=== PATIENT | male | born 1995 | race Caucasian/White ===

== ENCOUNTER 2016-09-12 14:01 | Emergency (ER) | payer MEDICARE, MEDICAID ==
[~2016-09-12] VITALS: Ht 182.9 cm; Wt 77.1 kg
[2016-09-12 14:01] VITALS: BP 135/72
[~2016-09-12 14:01] MED LIST: ABIL2TAB PO; ABIL5TAB PO; CETI10TA PO; COLACE PO; WELL100T PO; WELLTAB4 PO; [UNRECOGNIZED DRUG - REMARK]
[2016-09-12] MEDS ORDERED: MIRA3350 PO (15:18)
== END 2016-09-12 16:07 | disposition home or self-care (01) ==
LOC: M ED 15:57
DX: L29.0 Pruritus ani (principal); Z91.018 Allergy to other foods; Z88.1 Allergy status to other antibiotic agents

== ENCOUNTER → 2017-11-27 | Outpatient (CLI) | payer MEDICARE, MEDICAID ==
[2017-11-27 19:15] LABS: BASO % 0.3 % (0.0-1.0); HEMOGLOBIN 15.6 g/dl (13.5-17.5); IMMATURE GRANULOCYTE % 0.4 % (0-3.0); LYMPH # 0.8 10^3/uL (1.5-6.5); MEAN CORPUSCULAR HEMOGLOBIN 30.3 pg (27.0-33.0); MEAN CORPUSCULAR HGB CONC 33.9 g/dl (32.0-36.5); MEAN CORPUSCULAR VOLUME 89.3 fl (80.0-96.0); MONO # 0.5 10^3/uL (0.0-0.8); MONO % 4.9 % (0.0-5.0); NEUTROPHILS # 8.3 10^3/uL (1.8-7.7); NEUTROPHILS % 86.4 % (36.0-66.0); PLATELET COUNT, AUTOMATED 184 10^3/uL (150-450); RED BLOOD COUNT 5.15 10^6/uL (4.30-6.10); RED CELL DISTRIBUTION WIDTH 12.1 % (11.5-14.5); WHITE BLOOD COUNT 9.6 10^3/uL (4.0-10.0)
[2017-11-27 19:25] LABS: ALBUMIN 3.8 GM/DL (3.2-5.2); ALBUMIN/GLOBULIN RATIO 1.27 (1.00-1.93); ALKALINE PHOSPHATASE 52 U/L (45-117); ALT/SGPT 29 U/L (12-78); ANION GAP 9 MEQ/L (8-16); AST/SGOT 17 U/L (7-37); BILIRUBIN,TOTAL 1.2 MG/DL (0.2-1.0); BLOOD UREA NITROGEN 16 MG/DL (7-18); CALCIUM LEVEL 8.8 MG/DL (8.5-10.1); CARBON DIOXIDE LEVEL 26 MEQ/L (21-32); CHLORIDE LEVEL 104 MEQ/L (98-107); CREATININE FOR GFR 1.46 MG/DL (0.70-1.30); GLOMERULAR FILTRATION RATE > 60.0 (>60); GLUCOSE, FASTING 87 MG/DL (70-100); POTASSIUM SERUM 3.9 MEQ/L (3.5-5.1); SODIUM LEVEL 139 MEQ/L (136-145); TOTAL PROTEIN 6.8 GM/DL (6.4-8.2)
== END ==
LOC: M WUC 16:38
DX: A09 Infectious gastroenteritis and colitis, unspecified (principal)
CPT/HCPCS: 80053

== ENCOUNTER → 2019-02-05 | Outpatient (CLI) | payer MEDICARE, MEDICAID ==
[~2019-02-05] MED LIST changes: +MIRA3350 PO
[2019-02-05 12:35] LABS: HEMOGLOBIN A1c 5.3 %
[2019-02-05 12:51] LABS: ALBUMIN 3.9 GM/DL (3.2-5.2); ALT/SGPT 28 U/L (12-78); BILIRUBIN,TOTAL 0.6 MG/DL (0.2-1.0); BLOOD UREA NITROGEN 18 MG/DL (7-18); CARBON DIOXIDE LEVEL 31 MEQ/L (21-32); CHLORIDE LEVEL 104 MEQ/L (98-107); CHOLESTEROL LEVEL 92 MG/DL (<200); CHOLESTEROL RISK RATIO 1.803 (<5); CREATININE FOR GFR 1.14 MG/DL (0.70-1.30); GLOMERULAR FILTRATION RATE > 60.0 (>60); GLUCOSE, FASTING 73 MG/DL (70-100); HDL CHOLESTEROL 51 MG/DL (>40); LDL CHOLESTEROL 26 MG/DL (<100); NON-HDL-C 41 MG/DL; POTASSIUM SERUM 3.7 MEQ/L (3.5-5.1); SODIUM LEVEL 139 MEQ/L (136-145); TOTAL PROTEIN 7.1 GM/DL (6.4-8.2); TRIGLYCERIDES LEVEL 76 MG/DL (<150)
[2019-02-07 12:32] LABS: TESTOSTERONE 546 NG/DL (241-827)
[2019-02-07 12:33] LABS: HEPATITIS B SURFACE ANTIBODY NEGATIVE (POSITIVE)
[2019-02-07 12:43] LABS: HEPATITIS B SURFACE ANTIGEN NEGATIVE (NEGATIVE)
[2019-02-07 13:08] LABS: ESTRADIOL 24.6 PG/ML (<39.8)
[2019-02-07 13:12] LABS: HIV 1&2 SCREEN CENTAUR NEGATIVE (NEGATIVE)
== END ==
LOC: M LAB 11:28
PROVIDERS: ATTEND Nurse Practitioner Family
DX: F64.0 Transsexualism (principal); E07.9 Disorder of thyroid, unspecified; E78.00 Pure hypercholesterolemia, unspecified

== ENCOUNTER → 2019-04-28 | Outpatient (REF) | payer MEDICARE, MEDICAID ==
[2019-04-28 20:25] LABS: INFLUENZA A AMPLIFICATION NEGATIVE (NEGATIVE); INFLUENZA B AMPLIFICATION NEGATIVE (NEGATIVE)
== END ==
LOC: M LAB REF 18:53
PROVIDERS: ATTEND Physician Assistant
DX: R50.9 Fever, unspecified (principal)

== ENCOUNTER → 2019-09-23 | Outpatient (REF) | payer MEDICARE, MEDICAID ==
[2019-09-23 18:14] LABS: PROGESTERONE 0.21 NG/ML (0.28-1.22)
== END ==
LOC: M LAB REF 16:12
PROVIDERS: ATTEND Family Medicine Addiction Medicine
DX: F64.0 Transsexualism (principal)

== ENCOUNTER → 2020-02-03 | Outpatient (REF) | payer MEDICARE, MEDICAID ==
[2020-02-03 12:22] LABS: ALT/SGPT 26 U/L (12-78); BILIRUBIN,TOTAL 0.6 MG/DL (0.2-1.0); BLOOD UREA NITROGEN 12 MG/DL (7-18); CALCIUM LEVEL 9.5 MG/DL (8.5-10.1); CARBON DIOXIDE LEVEL 29 MEQ/L (21-32); CHLORIDE LEVEL 105 MEQ/L (98-107); CREATININE FOR GFR 0.98 MG/DL (0.70-1.30); GLOMERULAR FILTRATION RATE > 60.0 (>60); GLUCOSE, FASTING 70 MG/DL (70-100); SODIUM LEVEL 138 MEQ/L (136-145)
[2020-02-03 12:23] LABS: ALBUMIN 4.2 GM/DL (3.2-5.2); TOTAL PROTEIN 7.2 GM/DL (6.4-8.2)
[2020-02-03 12:28] LABS: ESTRADIOL 59.1 PG/ML (<39.8); TESTOSTERONE 425 NG/DL (241-827)
== END ==
LOC: M LAB REF 11:29
PROVIDERS: ATTEND Family Medicine Addiction Medicine
DX: F64.0 Transsexualism (principal)

== ENCOUNTER → 2020-04-07 | Outpatient (REF) | payer MEDICARE, MEDICAID | LOC: M LAB 22:06 | PROVIDERS: ATTEND Physician Assistant | DX: Z11.59 Encounter for screening for other viral diseases (principal) ==

== ENCOUNTER → 2020-04-27 | Outpatient (REF) | payer MEDICARE, MEDICAID ==
[2020-04-27 18:56] LABS: ALBUMIN 4.1 GM/DL (3.2-5.2); ALT/SGPT 36 U/L (12-78); BILIRUBIN,TOTAL 0.7 MG/DL (0.2-1.0); BLOOD UREA NITROGEN 13 MG/DL (7-18); CALCIUM LEVEL 9.5 MG/DL (8.5-10.1); CARBON DIOXIDE LEVEL 25 MEQ/L (21-32); CHLORIDE LEVEL 104 MEQ/L (98-107); CREATININE FOR GFR 1.06 MG/DL (0.70-1.30); GLOMERULAR FILTRATION RATE > 60.0 (>60); GLUCOSE, FASTING 76 MG/DL (70-100); POTASSIUM SERUM 3.9 MEQ/L (3.5-5.1); SODIUM LEVEL 140 MEQ/L (136-145); TOTAL PROTEIN 7.1 GM/DL (6.4-8.2)
[2020-04-27 19:03] LABS: TESTOSTERONE 397 NG/DL (241-827)
== END ==
LOC: M LAB REF 16:48
PROVIDERS: ATTEND Family Medicine Addiction Medicine
DX: F64.0 Transsexualism (principal)

== ENCOUNTER → 2020-06-12 | Outpatient (REF) | payer MEDICARE, MEDICAID ==
[2020-06-12 13:19] LABS: ALBUMIN 4.1 GM/DL (3.2-5.2); ALT/SGPT 36 U/L (12-78); BILIRUBIN,TOTAL 0.4 MG/DL (0.2-1.0); BLOOD UREA NITROGEN 17 MG/DL (7-18); CALCIUM LEVEL 9.7 MG/DL (8.5-10.1); CARBON DIOXIDE LEVEL 26 MEQ/L (21-32); CHLORIDE LEVEL 104 MEQ/L (98-107); CHOLESTEROL LEVEL 136 MG/DL (<200); CREATININE FOR GFR 1.01 MG/DL (0.70-1.30); ESTRADIOL 30.2 PG/ML (<39.8); GLOMERULAR FILTRATION RATE > 60.0 (>60); GLUCOSE, FASTING 84 MG/DL (70-100); HDL CHOLESTEROL 44 MG/DL (>40); LDL CHOLESTEROL 59 MG/DL (<100); NON-HDL-C 92 MG/DL; POTASSIUM SERUM 4.4 MEQ/L (3.5-5.1); SODIUM LEVEL 137 MEQ/L (136-145); TESTOSTERONE 365 NG/DL (241-827); TOTAL 25(OH) VITAMIN D 8.6 NG/ML (30.0-100.0); TOTAL PROTEIN 7.5 GM/DL (6.4-8.2); TRIGLYCERIDES LEVEL 166 MG/DL (<150)
== END ==
LOC: M LAB REF 12:04
PROVIDERS: ATTEND Family Medicine Addiction Medicine
DX: F64.0 Transsexualism (principal); E55.9 Vitamin D deficiency, unspecified; Z13.220 Encounter for screening for lipoid disorders

== ENCOUNTER → 2021-01-16 | Outpatient (CLI) | payer MEDICARE, MEDICAID ==
[~2021-01-16] MED LIST changes: +CETI5SOL3 PO; +ESTR1TAB PO; +SPIR1TAB34 PO; +VENL37TA PO
== END ==
LOC: M LABSMTC 10:21
PROVIDERS: ATTEND Anesthesiology
DX: Z01.818 Encounter for other preprocedural examination (principal); Z11.52 Encounter for screening for COVID-19

== ENCOUNTER 2021-01-21 11:01 | Day surgery (SDC) | payer MEDICARE, MEDICAID ==
[~2021-01-21] VITALS: Ht 182.9 cm; Wt 96.6 kg
--- OUTSIDE RECORDS SUMMARY | 2021-01-21 11:06 | CCD ---
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 Role Phone Segun Martínez Unavailable Unavailable Allergies Code Code System Name Reaction Severity Status Onset [id number] RxNorm Cantaloupe Active NKDA Notes: CANTELOPE | ENVIRONMENTAL Medications Name Status Start Date Stop Date cetirizine 10 mg tablet TAKE ONE TABLET BY MOUTH EVERY DAY Active Not available clindamycin 1.2 % (1 % base)-benzoyl peroxide 5 % topical gel Ac tive Not available estradiol 2 mg tablet TAKE TWO TABLETS BY MOUTH EVERY DAY Active Not available paroxetine 10 mg tablet TAKE ONE TABLET BY MOUTH EVERY DAY Completed 06/2020 paroxetine 20 mg tablet TAKE ONE TABLET BY MOUTH ONCE A DAY Completed 06/2020 paroxetine 30 mg tablet TAKE ONE TABLET BY MOUTH EVERY DAY Completed 06/06 spironolactone 100 mg tablet TAKE TWO TABLETS BY MOUTH EVERY DAY Active Not available spironolactone 50 mg tablet TAKE ONE TABLET BY MOUTH ONCE DAILY Completed 07/2019 venlafaxine ER 37.5 mg capsule,extended release 24 hr TAKE ONE CAPSULE BY MOUTH TWICE A DAY Active N ot available Problems Name Status Onset Date Source Asperger's Disorder Active 07/20/2012 History Conduct Disorder Active 07/23/2012 History Vitamin D Deficiency Active 11/29/2012 History Acne Active 11/29/2012 History Hyperlipidemia Screening Active 11/29/2012 History Constipation Active 01/24/[address] Concept Active 01/24/2013 History Autistic Disorder Active 01/23/2014 History Dental Caries on Smooth Surface Penetrating into Pulp Active 11/14/2014 History 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 05/18/2015 History Hyperlipidemia Active 09/11/2015 History Pruritus Ani Active 09/05/2016 History Impacted Cerumen in Right Ear Active 09/05/2016 Hi story Finding of Head and Neck Region Active 04/23/2017 History Perennial Allergic Rhinitis Active 10/21/2017 Hist ory Influenza Vaccine Needed Active 07/20/2018 History Tooth Finding Active 12/03/2018 History 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 Active History Hematochezia Active 03/09/2020 Hirsutism Active 06/01/2020 Body Mass Index 25-29 - Overweight Active 07/03/2020 Asthma Active History SNOMED CT Concept Active History Finding of Esophagus Active History Procedures Notes: Bilateral Inguinal hernia repair Results Lab Results Date Name Specimen Result Interpretation Description Value Range Status Address 06/12/2020 CMP, Serum or Plasma Normal Glucose, Fastin g 84 mg/dL 70-100 mg/dL [facility]: 83 0 [facility] Normal Blood Urea Nitrogen 17 mg/dL 7-18 mg /dL [facility]: [address]30 [facility] Normal Creatinine for GFR 1.01 mg/dL 0.70-1 .30 mg/dL [facility]: [address] [facility] Normal Glomerular Filtration Rate > 60.0 >6 0 [facility]: [address] [facility] Normal Sodium Level 137 mEq/L 136-145 mEq/L [facility]: [address] [facility] Normal Potassium Serum 4.4 mEq/L 3.5-5.1 mE q/L [facility]: [address] [facility] Normal Chloride Level 104 mEq/L 98-107 mEq/ L [facility]: [address] [facility] Normal Carbon Dioxide Level 26 mEq/L 21-32 mEq/L [facility]: [address] [facility] Low Anion Gap 7 mEq/L 8-16 mEq/L [facility]: [address] [facility] Normal Calcium Level 9.7 mg/dL 8.5-10.1 mg/ dL [facility]: [address] [facility] Normal AST/SGOT 22 U/L 7-37 U/L [facility]: 8[address] [facility] Normal ALT/SGPT 36 U/L 12-78 U/L [facility]: 8[address] [facility] Normal Alkaline Phosphatase 82 U/L 45-117 U /L [facility]: [address] [facility] Normal Bilirubin,total 0.4 mg/dL 0.2-1.0 mg /dL [facility]: [address] [facility] Normal Total Protein 7.5 gm/dL 6.4-8.2 gm/d L [facility]: [address] [facility] Normal Albumin 4.1 gm/dL 3.2-5.2 gm/dL [facility]: [address] [facility] Normal Albumin/globulin Ratio 1.2 [facility]: [address] [facility] 06/12/2020 Lipid Panel, Blood High Triglycerides Lev el 166 mg/dL <150 mg/dL [facility]: 83 0 [facility] Normal Cholesterol Level 136 mg/dL <200 mg/ dL [facility]: [address] [facility] Normal HDL Cholesterol 44 mg/dL >40 mg/dL F inal [facility]: [address] [facility] Normal LDL Cholesterol 59 mg/dL <100 mg/dL [facility]: [address] [facility] Normal Non-hdl-c 92 mg/dL [facility]: [address] [facility] Normal Cholesterol Risk Ratio 3.090 <5 [facility]: [address] [facility] 06/12/2020 Testosterone, Total, Serum Normal Testoster one 365 NG/dL 241- 827 NG/dL [facility]: 83 0 [facility] 06/12/2020 Estradiol, Serum Normal Estradiol 30.2 pg/mL < 39.8 pg/mL [facility]: [address] [facility] 06/12/2020 TSH, Serum or Plasma Normal Thyroid Stimulating Hormone 2.490 uIU/mL 0.358-3.740 uIU/mL [facility] nter: [address] [facility] 06/12/2020 Vitamin D, 25-Hydroxy, Total, Serum Low Total 25(Oh) Vitamin D 8.6 NG/mL 30.0-100.0 NG/mL [facility] nter: [address] [place] [address] 04/27/2020 CMP, Serum or Plasma Blood venous Normal Glu cose, Fasting 76 mg/dL 70-100 mg/dL [facility] nter: [address] [place] [address] Blood venous Normal Blood Urea Nitrogen 13 mg/dL 7-18 mg/dL [facility]: [address] [place] [address] Blood venous Normal Creatinine for GFR 1.06 mg/dL 0.70-1.30 mg/dL [facility]: [address] [place] [address] Blood venous Normal Glomerular Filtration Rate > 60.0 >60 [facility]: [address] [place] [address] Blood venous Normal Sodium Level 140 mEq/L 136-14 5 mEq/L [facility]: [address] [place] [address] Blood venous Normal Potassium Serum 3.9 mEq/L 3.5 -5.1 mEq/L [facility]: [address] [place] [address] Blood venous Normal Chloride Level 104 mEq/L 98-1 07 mEq/L [facility]: [address] [place] [address] Blood venous Normal Carbon Dioxide Level 25 mEq/L 21-32 mEq/L [facility]: [address] [place] [address] Blood venous Normal Anion Gap 11 mEq/L 8-16 mEq/L [facility]: [address] [place] [address] Blood venous Normal Calcium Level 9.5 mg/dL 8.5-1 0.1 mg/dL [facility]: [address] [place] [address] Blood venous Normal AST/SGOT 18 U/L 7-37 U/L [facility]: [address] [place] [address] Blood venous Normal ALT/SGPT 36 U/L 12-78 U/L [facility]: [address] [place] [address] Blood venous Normal Alkaline Phosphatase 70 U/L 4 5-117 U/L [facility]: [address] [place] [address] Blood venous Normal Bilirubin,total 0.7 mg/dL 0.2 -1.0 mg/dL [facility]: [address] [place] [address] Blood venous Normal Total Protein 7.1 gm/dL 6.4-8 .2 gm/dL [facility]: [address] [facility] Blood venous Normal Albumin 4.1 gm/dL 3.2-5.2 gm/ dL [facility]: [address] [facility] Blood venous Normal Albumin/globulin Ratio 1.4 [facility]: [address] [facility] 04/27/2020 Testosterone, Total, Serum Blood venous Normal Testosterone 397 NG/dL 241-827 NG/dL [facility] nter: 0 [facility] 04/27/2020 Estradiol, Serum Blood venous Normal Estradiol 33 .0 pg/mL <39.8 pg/mL [facility]: 83 0 [facility] 02/03/2020 CMP, Serum or Plasma Normal Glucose, Fastin g 70 mg/dL 70-100 mg/dL [facility]: 83 0 [facility] Normal Blood Urea Nitrogen 12 mg/dL 7-18 mg /dL [facility]: 0 [facility] Normal Creatinine for GFR 0.98 mg/dL 0.70-1 .30 mg/dL [facility]: 0 [facility] Normal Glomerular Filtration Rate > 60.0 >6 0 [facility]: [address] [facility] Normal Sodium Level 138 mEq/L 136-145 mEq/L [facility]: 8[address] [facility] Normal Potassium Serum 4.0 mEq/L 3.5-5.1 mE q/L [facility]: [address] [facility] Normal Chloride Level 105 mEq/L 98-107 mEq/ L [facility]: 0 [facility] Normal Carbon Dioxide Level 29 mEq/L 21-32 mEq/L [facility]: 0 [facility] Low Anion Gap 4 mEq/L 8-16 mEq/L [facility]: [address] [facility] Normal Calcium Level 9.5 mg/dL 8.5-10.1 mg/ dL [facility]: 8[address] [facility] Normal AST/SGOT 16 U/L 7-37 U/L [facility]: 830 [facility] Normal ALT/SGPT 26 U/L 12-78 U/L [facility]: [address] [facility] Normal Alkaline Phosphatase 71 U/L 45-117 U /L [facility]: [address] [facility] Normal Bilirubin,total 0.6 mg/dL 0.2-1.0 mg /dL [facility]: [address] [facility] Normal Total Protein 7.2 gm/dL 6.4-8.2 gm/d L [facility]: [address] [facility] Normal Albumin 4.2 gm/dL 3.2-5.2 gm/dL [facility]: [address] [facility] Normal Albumin/globulin Ratio 1.4 [facility]: [address] [facility] 02/03/2020 Testosterone, Total, Serum Normal Testoster one 425 NG/dL 241- 827 NG/dL [facility]: 83 0 [facility] 02/03/2020 Estradiol, Serum High Estradiol 59.1 pg/mL < 39.8 pg/mL [facility]: [address] [facility] Past Encounters 12/12/2020 Hirsutism; 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 Segun Martínez MD: [address] [place] [phone], Ph. 09/07/2020 Hirsutism Segun Martínez MD: [address] [place] [phone], Ph. 08/06/2020 Constipation Segun Martínez MD: [address] [place] [phone], Ph. 07/03/2020 Body Mass Index 25-29 - Overweight; Hematochezia; Vitamin D Deficiency Segun Martínez MD: [address] [place] [phone], Ph. 06/12/2020 Segun Martínez MD: [address] [place] [phone], Ph. 06/01/2020 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; Hirsutism Segun Martínez MD: [address] [place] [phone], Ph. 04/27/2020 Segun Martínez MD: [address] [place] [phone], Ph. 04/23/2020 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; Body Mass Index 25-29 - Overweight; Acne Segun Martínez MD: [address] [place] [phone], Ph. 03/09/2020 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; Administration of Influenza Vaccine; Hematochezia Segun Martínez MD: [address] [place] [phone], Ph. 02/02/2020 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; Gastroesophageal Reflux Disease without Esophagitis; Superficial Acne Vulgaris Segun Martínez MD: [address] [place] [phone], Ph. Social History Tobacco Smoking Status Never Smoker Vaccine List Vaccine Type Influenza, injectable, MDCK, preservativ e free, quadrivalent 07/20/20180.5 mL influenza, injectable, quadrivalent, pre servative free 03/09/20200.5 mL Plan of Care Reminders Provider Appointments None recorded. Lab None recorded. Referral None recorded. Procedures None recorded. Surgeries None recorded. Imaging None recorded. Vitals 12/12/2020 03:40PM ESTABLISHED [id number] Height Weight BMI Blood Pressure 72 in 215 lbs 8 oz 29.2 kg/m2 104/69 mm[Hg] 09/07/2020 03:20PM SAME DAY 20 Height Weight BMI Blood Pressure 72 in 218 lbs 4 oz 29.6 kg/m2 128/71 mm[Hg] 08/06/2020 03:40PM PROVIDER REQUESTED Height Weight BMI Blood Pressure 72 in 214 lbs 29 kg/m2 146/80 mm[Hg] 07/03/2020 11:00AM ESTABLISHED [id number] Height Weight BMI Blood Pressure 72 in 210 lbs 6.4 oz 28.5 kg/m2 (1) 192/96 m m[Hg] (2) 112/74 mm[Hg] 06/01/2020 02:00PM SAME DAY 20 Height Weight BMI Blood Pressure 72 in 213 lbs 4 oz 28.9 kg/m2 110/78 mm[Hg] 04/23/2020 03:20PM SAME DAY 20 Height Weight BMI Blood Pressure 72 in 207 lbs 6 oz 28.1 kg/m2 125/86 mm[Hg] 03/09/2020 03:00PM ESTABLISHED [id number] Height Weight BMI Blood Pressure 72 in 209 lbs 6.4 oz 28.4 kg/m2 128/84 mm[Hg ] 02/02/2020 01:00PM ESTABLISHED [id number] Height Weight BMI Blood Pressure 72 in 202 lbs 6 oz 27.4 kg/m2 133/84 mm[Hg] 10/24/2019 Height Weight BMI Blood Pressure 72 in 203 lbs 27.63 kg/m2 116/82 mm[Hg] 09/23/2019 Height Weight BMI Blood Pressure 72 in 202 lbs 2.08 oz 27.51 kg/m2 134/81 mm[H g] 08/22/2019 Height Weight BMI Blood Pressure 72 in 198 lbs 26.95 kg/m2 117/68 mm[Hg] 04/27/2019 Height Weight BMI Blood Pressure 72 in 192 lbs 8 oz 26.20 kg/m2 137/84 mm[Hg] 04/20/2019 Height Weight BMI Blood Pressure 72 in 187 lbs 11.2 oz 25.55 kg/m2 120/82 mm[H g] 03/16/2019 Height Weight BMI Blood Pressure 72 in 185 lbs 25.18 kg/m2 110/64 mm[Hg] 02/24/2019 Height Weight BMI Blood Pressure 72 in 179 lbs 6.08 oz 24.42 kg/m2 125/84 mm[H g] 02/04/2019 Height Weight BMI Blood Pressure 72 in 174 lbs 4 oz 23.72 kg/m2 112/78 mm[Hg] 12/03/2018 Height Weight BMI Blood Pressure 72 in 177 lbs 2.08 oz 24.11 kg/m2 120/80 mm[H g] 07/20/2018 Height Weight BMI Blood Pressure 61.32 in 175 lbs 2.08 oz 32.86 kg/m2 119/75 mm[H g] 04/20/2018 Height Weight BMI Blood Pressure 61.32 in 191 lbs 9.6 oz 35.96 kg/m2 120/83 mm[Hg ]"
--- OUTSIDE RECORDS SUMMARY | 2021-01-21 11:06 | CCD ---
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 Role Phone Segun Martínez Unavailable Unavailable Allergies Code Code System Name Reaction Severity Status Onset 643934 RxNorm Cantaloupe Active NKDA Notes: CANTELOPE | [...] Glucose, Fastin g 84 mg/dL 70-100 mg/dL [facility]: 83 0 [facility] Normal Blood Urea Nitrogen 17 mg/dL 7-18 mg /dL [facility]: 830 [facility] Normal Creatinine for GFR 1.01 mg/dL 0.70-1 .30 mg/dL [facility]: 830 [facility] Normal Glomerular Filtration Rate > 60.0 >6 0 [facility]: 8[address] [facility] Normal Sodium Level 137 mEq/L 136-145 mEq/L [facility]: 8[address] [facility] Normal Potassium Serum 4.4 mEq/L 3.5-5.1 mE q/L [facility]: 8[address] [facility] Normal Chloride Level 104 mEq/L 98-107 mEq/ L [facility]: 8[address] [facility] Normal Carbon Dioxide Level 26 mEq/L 21-32 mEq/L [facility]: [address] [facility] Low Anion Gap 7 mEq/L 8-16 mEq/L [facility]: 8[address] [facility] Normal Calcium Level 9.7 mg/dL 8.5-10.1 mg/ dL [facility]: 8[address] [facility] Normal AST/SGOT 22 U/L 7-37 U/L [facility]: 8[address] [facility] Normal ALT/SGPT 36 U/L 12-78 U/L [facility]: 830 [facility] Normal Alkaline Phosphatase 82 U/L 45-117 U /L [facility]: 830 [facility] Normal Bilirubin,total 0.4 mg/dL 0.2-1.0 mg /dL [facility]: 8[address] [facility] Normal Total Protein 7.5 gm/dL 6.4-8.2 gm/d L [facility]: 830 [facility] Normal Albumin 4.1 gm/dL 3.2-5.2 gm/dL [facility]: 8[address] [facility] Normal Albumin/globulin Ratio 1.2 [facility]: 8[address] [facility] 06/12/2020 Lipid Panel, Blood High Triglycerides Lev el 166 mg/dL <150 mg/dL [facility]: 83 0 [facility] Normal Cholesterol Level 136 mg/dL <200 mg/ dL [facility]: 830 [facility] Normal HDL Cholesterol 44 mg/dL >40 mg/dL F inal [facility]: 8[address] [facility] Normal LDL Cholesterol 59 mg/dL <100 mg/dL [facility]: 8[address] [facility] Normal Non-hdl-c 92 mg/dL [facility]: 8[address] [facility] Normal Cholesterol Risk Ratio 3.090 <5 [facility]: 8[address] [facility] 06/12/2020 Testosterone, Total, Serum Normal Testoster one 365 NG/dL 241- 827 NG/dL [facility]: 83 0 [facility] 06/12/2020 Estradiol, Serum Normal Estradiol 30.2 pg/mL < 39.8 pg/mL [facility]: 8[address] [facility] 06/12/2020 TSH, Serum or Plasma Normal Thyroid Stimulating Hormone 2.490 uIU/mL 0.358-3.740 uIU/mL [facility] nter: [address] [facility] 06/12/2020 Vitamin D, 25-Hydroxy, Total, Serum Low Total 25(Oh) Vitamin D 8.6 NG/mL 30.0-100.0 NG/mL [facility] nter: [address] [place] [address] 04/27/2020 CMP, Serum or Plasma Blood venous Normal Glu cose, Fasting 76 mg/dL 70-100 mg/dL [facility] nter: [address] [place] [address] Blood venous Normal Blood Urea Nitrogen 13 mg/dL 7-18 mg/dL [facility]: [address] [place] [address] Blood venous Normal Creatinine for GFR 1.06 mg/dL 0.70-1.30 mg/dL [facility]: [address] [place] [address] Blood venous Normal Glomerular Filtration Rate > 60.0 >60 [facility]: [address] [place] [address] Blood venous Normal Sodium Level 140 mEq/L 136-14 5 mEq/L [facility]: [address] [place] [address] Blood venous Normal Potassium Serum 3.9 mEq/L 3.5 -5.1 mEq/L [facility]: [address] [place] [address] Blood venous Normal Chloride Level 104 mEq/L 98-1 07 mEq/L [facility]: [address] [place] [address] Blood venous Normal Carbon Dioxide Level 25 mEq/L 21-32 mEq/L [facility]: [address] [place] [address] Blood venous Normal Anion Gap 11 mEq/L 8-16 mEq/L [facility]: [address] [place] [address] Blood venous Normal Calcium Level 9.5 mg/dL 8.5-1 0.1 mg/dL [facility]: [address] [place] [address] Blood venous Normal AST/SGOT 18 U/L 7-37 U/L [facility]: [address] [place] [address] Blood venous Normal ALT/SGPT 36 U/L 12-78 U/L [facility]: [address] [place] [address] Blood venous Normal Alkaline Phosphatase 70 U/L 4 5-117 U/L [facility]: [address] [place] [address] Blood venous Normal Bilirubin,total 0.7 mg/dL 0.2 -1.0 mg/dL [facility]: [address] [place] [address] Blood venous Normal Total Protein 7.1 gm/dL 6.4-8 .2 gm/dL [facility]: 8[address] [facility] Blood venous Normal Albumin 4.1 gm/dL 3.2-5.2 gm/ dL [facility]: 8[address] [facility] Blood venous Normal Albumin/globulin Ratio 1.4 [facility]: 8[address] [facility] 04/27/2020 Testosterone, Total, Serum Blood venous Normal Testosterone 397 NG/dL 241-827 NG/dL [facility] nter: 0 [facility] 04/27/2020 Estradiol, Serum Blood venous Normal Estradiol 33 .0 pg/mL <39.8 pg/mL [facility]: 83 0 [facility] 02/03/2020 CMP, Serum or Plasma Normal Glucose, Fastin g 70 mg/dL 70-100 mg/dL [facility]: 83 0 [facility] Normal Blood Urea Nitrogen 12 mg/dL 7-18 mg /dL [facility]: 0 [facility] Normal Creatinine for GFR 0.98 mg/dL 0.70-1 .30 mg/dL [facility]: 0 [facility] Normal Glomerular Filtration Rate > 60.0 >6 0 [facility]: 830 [facility] Normal Sodium Level 138 mEq/L 136-145 mEq/L [facility]: 830 [facility] Normal Potassium Serum 4.0 mEq/L 3.5-5.1 mE q/L [facility]: 830 [facility] Normal Chloride Level 105 mEq/L 98-107 mEq/ L [facility]: 0 [facility] Normal Carbon Dioxide Level 29 mEq/L 21-32 mEq/L [facility]: 0 [facility] Low Anion Gap 4 mEq/L 8-16 mEq/L [facility]: 830 [facility] Normal Calcium Level 9.5 mg/dL 8.5-10.1 mg/ dL [facility]: 830 [facility] Normal AST/SGOT 16 U/L 7-37 U/L [facility]: 8[address] [facility] Normal ALT/SGPT 26 U/L 12-78 U/L [facility]: 830 [facility] Normal Alkaline Phosphatase 71 U/L 45-117 U /L [facility]: 830 [facility] Normal Bilirubin,total 0.6 mg/dL 0.2-1.0 mg /dL [facility]: 830 [facility] Normal Total Protein 7.2 gm/dL 6.4-8.2 gm/d L [facility]: 830 [facility] Normal Albumin 4.2 gm/dL 3.2-5.2 gm/dL [facility]: 8[address] [facility] Normal Albumin/globulin Ratio 1.4 [facility]: 830 [facility] 02/03/2020 Testosterone, Total, Serum Normal Testoster one 425 NG/dL 241- 827 NG/dL [facility]: 83 0 [facility] 02/03/2020 Estradiol, Serum High Estradiol 59.1 pg/mL < 39.8 pg/mL [facility]: 8[address] [facility] Past Encounters 01/17/2021 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 Segun Martínez MD: [address] [place] [phone], Ph. 12/12/2020 Hirsutism; 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 Segun Martínez MD: [address] [place] [phone], Ph. 09/07/2020 Hirsutism Segun Martínez MD: [address] [place] [phone], Ph. 08/06/2020 Constipation Segun Martínez MD: [address] [place] [phone], Ph. 07/03/2020 Body Mass Index 25-29 - Overweight; Hematochezia; Vitamin D Deficiency Segun Martínez MD: [address] [place] [phone], Ph. 06/12/2020 Segun Martínez MD: [address] [place] [phone], Ph. 06/01/2020 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; Hirsutism Segun Martínez MD: [address] [place] [phone], Ph. 04/27/2020 Segun Martínez MD: [address] [place] [phone], Ph. 04/23/2020 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; Body Mass Index 25-29 - Overweight; Acne Segun Martínez MD: [address] [place] [phone], Ph. 03/09/2020 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; Administration of Influenza Vaccine; Hematochezia Segun Martínez MD: [address] [place] [phone], Ph. 02/02/2020 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; Gastroesophageal Reflux Disease without Esophagitis; Superficial Acne Vulgaris Segun Martínez MD: [address] [place] [phone], Ph. Social History Tobacco Smoking Status Never Smoker Vaccine List Vaccine Type Influenza, injectable, MDCK, preservativ e free, quadrivalent 07/20/20180.5 mL influenza, injectable, quadrivalent, pre servative free 03/09/20200.5 mL Plan of Care Reminders Provider Appointments None recorded. Lab None recorded. Referral None recorded. Procedures None recorded. Surgeries None recorded. Imaging None recorded. Vitals 01/17/2021 03:20PM ESTABLISHED [id number] Height Weight BMI Blood Pressure 72 in 217 lbs 4 oz 29.5 kg/m2 115/64 mm[Hg] 12/12/2020 03:40PM ESTABLISHED [id number] Height Weight BMI Blood Pressure 72 in 215 lbs 8 oz 29.2 kg/m2 104/69 mm[Hg] 09/07/2020 03:20PM SAME DAY 20 Height Weight BMI Blood Pressure 72 in 218 lbs 4 oz 29.6 kg/m2 128/71 mm[Hg] 08/06/2020 03:40PM PROVIDER REQUESTED Height Weight BMI Blood Pressure 72 in 214 lbs 29 kg/m2 146/80 mm[Hg] 07/03/2020 11:00AM ESTABLISHED [id number] Height Weight BMI Blood Pressure 72 in 210 lbs 6.4 oz 28.5 kg/m2 (1) 192/96 m m[Hg] (2) 112/74 mm[Hg] 06/01/2020 02:00PM SAME DAY 20 Height Weight BMI Blood Pressure 72 in 213 lbs 4 oz 28.9 kg/m2 110/78 mm[Hg] 04/23/2020 03:20PM SAME DAY 20 Height Weight BMI Blood Pressure 72 in 207 lbs 6 oz 28.1 kg/m2 125/86 mm[Hg] 03/09/2020 03:00PM ESTABLISHED [id number] Height Weight BMI Blood Pressure 72 in 209 lbs 6.4 oz 28.4 kg/m2 128/84 mm[Hg ] 02/02/2020 01:00PM ESTABLISHED [id number] Height Weight BMI Blood Pressure 72 in [...]
--- OUTSIDE RECORDS SUMMARY | 2021-01-21 11:08 | CCD ---
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 Name Role Phone Kristel Martínez MD Unavailable Unavailable Kristle Martínez MD Unavailable Unavailable Kristel Martínez MD Unavailable Unavailable Kristel Martínez MD Unavailable Unavailable Kristel Martínez MD Unavailable Unavailable Kristel Martínez MD Unavailable Unavailable Kristel Martínez MD Unavailable Unavailable Kristel Martínez MD Unavailable Unavailable Kristel Martínez MD Unavailable Unavailable Kristel Martínez MD Unavailable Unavailable Kristel Martínez MD Unavailable Unavailable Kristel Martínez MD Unavailable Unavailable Kristel Martínez MD Unavailable Unavailable Kristel Martínez MD Unavailable Unavailable Kristel Martínez MD Unavailable Unavailable Kristel Martínez MD Unavailable Unavailable Kristel Martínez MD Unavailable Unavailable Kristel Martínez MD Unavailable Unavailable Kristel Martínez MD Unavailable Unavailable Kristel Martínez MD Unavailable Unavailable Kristel Martínez MD Unavailable Unavailable Kristel Martínez MD Unavailable Unavailable Kristel Martínez MD Unavailable Unavailable Kristel Martínez MD Unavailable Unavailable Kristel Martínez MD Unavailable Unavailable Kristel Martínez MD Unavailable Unavailable Kristel Marítnez MD Unavailable Unavailable Kristel Martínez MD Unavailable Unavailable Kristel Martínez MD Unavailable Unavailable Kristel Martínez MD Unavailable Unavailable Kristel Martínez MD Unavailable Unavailable Kristel Martínez MD Unavailable Unavailable Kristel Martínez MD Unavailable Unavailable Kristel Martínez MD Unavailable Unavailable Kristel Martínez MD Unavailable Unavailable Kristel Martínez MD Unavailable Unavailable Kristel Martínez MD Unavailable Unavailable Kristel Martínez MD Unavailable Unavailable Kristel Martínez MD Unavailable Unavailable Kristel Martínez MD Unavailable Unavailable Kristel Martínez MD Unavailable Unavailable Kristel Martínez MD Unavailable Unavailable Kristel Martínez MD Unavailable Unavailable Kristel Martínez MD Unavailable Unavailable Kristel Martínez MD Unavailable Unavailable Kristel Martínez MD Unavailable Unavailable Kristel Martínez MD Unavailable Unavailable Kristel Martínez MD Unavailable Unavailable Kristel Martínez MD Unavailable Unavailable Kristel Martínez MD Unavailable Unavailable Kristel Martínez MD Unavailable Unavailable Kristel Martínez MD Unavailable Unavailable Kristel Martínez MD Unavailable Unavailable Kristel Martínez MD Unavailable Unavailable Kristel Martínez MD Unavailable Unavailable Kristel Martínez MD Unavailable Unavailable Kristel Martínez MD Unavailable Unavailable Kristel Martínez MD Unavailable Unavailable Kristel Martínez MD Unavailable Unavailable Kristel Martínez MD Unavailable Unavailable Kristel Martínez MD Unavailable Unavailable Kristel Martínez MD Unavailable Unavailable Kristel Martínez MD Unavailable Unavailable Kristel Martínez MD Unavailable Unavailable Kristel Martínez MD Unavailable Unavailable Kristel Martínez MD Unavailable Unavailable Kristel Martínez MD Unavailable Unavailable Kristel Martínez MD Unavailable Unavailable Kristel Martínez MD Unavailable Unavailable Kristel Martínez MD Unavailable Unavailable Kristel Martínez MD Unavailable Unavailable Kristel Martínez MD Unavailable Unavailable Kristel Martínez MD Unavailable Unavailable Kristel Martínez MD Unavailable Unavailable Kristel Martínez MD Unavailable Unavailable Kristel Martínez MD Unavailable Unavailable Kristel Martínez MD Unavailable Unavailable Kristel Martínez MD Unavailable Unavailable Kristel Martínez MD Unavailable Unavailable Kristel Martínez MD Unavailable Unavailable Kristel Martínez MD Unavailable Unavailable Kristel Martínez MD Unavailable Unavailable Kristel Martínez MD Unavailable Unavailable Kristel Martínez MD Unavailable Unavailable Kristel Martínez MD Unavailable Unavailable Kristel Martínez MD Unavailable Unavailable Kristel Martínez MD Unavailable Unavailable Kristel Martínez MD Unavailable Unavailable Kristel Martínez MD Unavailable Unavailable Kristel Martínez MD Unavailable Unavailable Kristel Martínez MD Unavailable Unavailable Kristle Martínez MD Unavailable Unavailable Kristel Martínez MD Unavailable Unavailable Jinny Robles CHART CLERK Unavailable Unavailable REINDL, CIERA RAMON Unavailable Unavailable REINDL, CIERA RAMON Unavailable Unavailable REINDL, CIERA RAMON Unavailable Unavailable REINDL, CIERA RAMON Unavailable Unavailable REINDL, CIERA RAMNO Unavailable Unavailable REINDL, CIERA RAMON Unavailable Unavailable REINDL, CIERA RAMON Unavailable Unavailable REINDL, CIERA RAMON Unavailable Unavailable REINDL, CIERA RAMON Unavailable Unavailable REINDL, CIERA RAMON Unavailable Unavailable REINDL, CIERA RAMON Unavailable Unavailable REINDL, CIERA RAMON Unavailable Unavailable REINDL, CIERA RAMON Unavailable Unavailable REINDL, CIERA RAMON Unavailable Unavailable REINDL, CIERA RAMON Unavailable Unavailable REINDL, CIERA RAMON Unavailable Unavailable REINDL, CIERA RAMON Unavailable Unavailable REINDL, CIERA RAMON Unavailable Unavailable REINDL, CIERA RAMON Unavailable Unavailable REINDL, CIERA RAMON Unavailable Unavailable REINDL, CIERA RAMON Unavailable Unavailable REINDL, CIERA RAMON Unavailable Unavailable REINDL, CIERA RAMON Unavailable Unavailable REINDL, CIERA RAMON Unavailable Unavailable REINDL, CIERA RAMON Unavailable Unavailable REINDL, CIERA RAMON Unavailable Unavailable REINDL, CIERA RAMON Unavailable Unavailable REINDL, CIERA RAMON Unavailable Unavailable REINDL, CIERA RAMON Unavailable Unavailable REINDL, CIERA RAMON Unavailable Unavailable REINDL, CIERA RAMON Unavailable Unavailable REINDL, CIERA RAMON Unavailable Unavailable REINDL, CIERA RAMON Unavailable Unavailable REINDL, CIERA RAMON Unavailable Unavailable REINDL, CIERA RAMON Unavailable Unavailable REINDL, CIERA RAMON Unavailable Unavailable REINDL, CIERA RAMON Unavailable Unavailable REINDL, CIERA RAMON Unavailable Unavailable REINDL, CIERA RAMON Unavailable Unavailable REINDL, CIERA RAMON Unavailable Unavailable REINDL, CIERA RAMON Unavailable Unavailable REINDL, CIERA RAMON Unavailable Unavailable Louis Sandoval MD Unavailable Unavailable Louis Sandoval MD Unavailable Unavailable Louis Sandoval MD Unavailable Unavailable Louis Sandoval MD Unavailable Unavailable Louis Sandoval MD Unavailable Unavailable Louis Sandoval MD Unavailable Unavailable Louis Sandoval MD Unavailable Unavailable Louis Sandoval MD Unavailable Unavailable Louis Sandoval MD Unavailable Unavailable Louis Sandoval MD Unavailable Unavailable Louis Sandoval MD Unavailable Unavailable Louis Sandoval MD Unavailable Unavailable Louis Sandoval MD Unavailable Unavailable Louis Sandoval MD Unavailable Unavailable Louis Sandoval MD Unavailable Unavailable Nikolavsky, Louis MD Unavailable Unavailable Nikolavsky, Louis MD Unavailable Unavailable Nikolavsky, Louis MD Unavailable Unavailable Nikolavsky, Louis MD Unavailable Unavailable Nikolavsky, Louis MD Unavailable Unavailable Nikolavsky, Louis MD Unavailable Unavailable Nikolavsky, Louis MD Unavailable Unavailable Nikolavsky, Louis MD Unavailable Unavailable Nikolavsky, Louis MD Unavailable Unavailable Nikolavsky, Louis MD Unavailable Unavailable Nikolavsky, Louis MD Unavailable Unavailable Nikolavsky, Louis MD Unavailable Unavailable Nikolavsky, Louis MD Unavailable Unavailable Nikolavsky, Louis MD Unavailable Unavailable Nikolavsky, Louis MD Unavailable Unavailable Nikolavsky, Louis MD Unavailable Unavailable Nikolavsky, Louis MD Unavailable Unavailable Nikolavsky, Louis MD Unavailable Unavailable Nikolavsky, Louis MD Unavailable Unavailable Nikolavsky, Louis MD Unavailable Unavailable Nikolavsky, Louis MD Unavailable Unavailable Nikolavsky, Louis MD Unavailable Unavailable Nikolavsky, Louis MD Unavailable Unavailable Nikolavsky, Louis MD Unavailable Unavailable Nikolavsky, Louis MD Unavailable Unavailable Nikolavsky, Louis MD Unavailable Unavailable Nikolavsky, Louis MD Unavailable Unavailable Nikolavsky, Louis MD Unavailable Unavailable Nikolavsky, Louis MD Unavailable Unavailable Nikolavsky, Louis MD Unavailable Unavailable Nikolavsky, Louis MD Unavailable Unavailable Nikolavsky, Louis MD Unavailable Unavailable Nikolavsky, Louis MD Unavailable Unavailable Nikolavsky, Louis MD Unavailable Unavailable Nikolavsky, Louis MD Unavailable Unavailable Leah Robles CHART CLERK-BC Unavailable Unavailable Leah Robles Jinny CHART CLERK-BC Unavailable Unavailable Leah Robles Jinny CHART CLERK-BC Unavailable Unavailable eLah Robles Jinny CHART CLERK-BC Unavailable Unavailable Leah Robles Jinny CHART CLERK-BC Unavailable Unavailable Leah Robles Jinny CHART CLERK-BC Unavailable Unavailable Leah Robles Jinny CHART CLERK-BC Unavailable Unavailable eLah Robles Jinny CHART CLERK-BC Unavailable Unavailable Robles, F Jinny CHART CLERK-BC Unavailable Unavailable Robles, F Jinny CHART CLERK-BC Unavailable Unavailable Robles, F Jinny CHART CLERK-BC Unavailable Unavailable Robles, F Jinny CHART CLERK-BC Unavailable Unavailable Robles, F Jinny CHART CLERK-BC Unavailable Unavailable Robles, F Jinny CHART CLERK-BC Unavailable Unavailable Robles, F Jinny CHART CLERK-BC Unavailable Unavailable Robles, F Jinny CHART CLERK-BC Unavailable Unavailable Robles, F Jinny CHART CLERK-BC Unavailable Unavailable Robles, F Jinny CHART CLERK-BC Unavailable Unavailable Robles, F Jinny CHART CLERK-BC Unavailable Unavailable Robles, F Jinny CHART CLERK-BC Unavailable Unavailable Robles, F Jinny CHART CLERK-BC Unavailable Unavailable Robles, F Jinny CHART CLERK-BC Unavailable Unavailable Robles, F Jinny CHART CLERK-BC Unavailable Unavailable Re-disclosure Warning The records that you are about to access may contain information from federally-assisted alcohol or drug abuse programs. If such information is present, then the following federally mandated warning applies: This information has been disclosed to you from records protected by federal confidentiality rules (42 CFR part 2). The federal rules prohibit you from making any further disclosure of this information unless further disclosure is expressly permitted by the written consent of the person to whom it pertains or as otherwise permitted by 42 CFR part 2. A general authorization for the release of medical or other information is NOT sufficient for this purpose. The Federal rules restrict any use of the information to criminally investigate or prosecute any alcohol or drug abuse patient.The records that you are about to access may contain highly sensitive health information, the redisclosure of which is protected by Article 27-F of the [facility] Public Health law. If you continue you may have access to information: Regarding HIV / AIDS; Provided by facilities licensed or operated by the [facility] Office of Mental Health; or Provided by the [facility] Office for People With Developmental Disabilities. If such information is present, then the following [facility] mandated warning applies: This information has been disclosed to you from confidential records which are protected by state law. State law prohibits you from making any further disclosure of this information without the specific written consent of the person to whom it pertains, or as otherwise permitted by law. Any unauthorized further disclosure in violation of state law may result in a fine or penitentiary sentence or both. A general authorization for the release of medical or other information is NOT sufficient authorization for further disc losure. Allergies and Adverse Reactions Type Description Substance Reaction Status Data Source(s ) Propensity to adverse reactions NO KNOWN ALLERGIES NO KNOWN ALLERGIES [facility] Family History Family Member Name Family Member Gender Family Member Status Date o f Status Description Data Source(s) Unknown Unknown Problem [facility] Encounters Encounter Providers Location Date Indications Data Source(s ) Segun Martínez MD: [address] [place] [address], Ph. Attender: Segun Martínez MD [facility] Medical 01/17/2021 12:00:00 AM EDT [facility] ([facility]) Segun Martínez MD: [address] [place] [address], Ph. Attender: Segun Martínez MD [facility] Medical 12/12/2020 12:00:00 AM EDT [facility] ([facility]) Segun Martínez MD: [address] [place] [address], Ph. Attender: Segun Martínez MD [facility] Medical 12/12/2020 12:00:00 AM EDT [facility] ([facility]) Outpatient Attender: CIERA Shields/Dominique/Jm/Tera young 10/10/2020 10:30:00 AM EDT [facility] ([facility] Segun Martínez MD: [address] [place] [address], Ph. Attender: Segun Martínez MD [facility] Medical 09/07/2020 12:00:00 AM EDT [facility] ([facility]) Segun Martínez MD: [address] [place] [address], Ph. Attender: Segun Martínez MD [facility] Medical 09/07/2020 12:00:00 AM EDT [facility] ([facility]) Segun Martínez MD: [address] [place] [address], Ph. Attender: Segun Martínez MD [facility] Medical 08/06/2020 12:00:00 AM EDT [facility] ([facility]) Segun Martínez MD: [address] [place] [address], Ph. Attender: Segun Martínez MD [facility] Medical 08/06/2020 12:00:00 AM EDT [facility] ([facility]) Segun Martínez MD: [address] [place] [address], Ph. Attender: Segun Martínez MD [facility] Medical 08/06/2020 12:00:00 AM EDT [facility] ([facility]) Segun Martínez MD: [address] [place] [address], Ph. Attender: Segun Martínez MD [facility] Medical 07/03/2020 12:00:00 AM EDT [facility] ([facility]) Segun Martínez MD: [address] [place] [address], Ph. Attender: Segun Martínez MD [facility] Medical 07/03/2020 12:00:00 AM EDT [facility] ([facility]) Segun Martínez MD: [address] [place] [address], Ph. Attender: Segun Martínez MD [facility] Medical 07/03/2020 12:00:00 AM EDT [facility] ([facility]) Segun Martínez MD: [address] [place] [address], Ph. Attender: Segun Martínez MD [facility] Medical 07/03/2020 12:00:00 AM EDT [facility] ([facility]) Segun Martínez MD: [address] [place] [address], Ph. Attender: Segun Martínez MD [facility] Medical 06/12/2020 12:00:00 AM EST [facility] ([facility]) Segun Martínez MD: [address] [place] [address], Ph. Attender: Segun Martínez MD [facility] Medical 06/12/2020 12:00:00 AM EST [facility] ([facility]) Segun Martínez MD: [address] [place] [address], Ph. Attender: Segun Martínez MD [facility] Medical 06/12/2020 12:00:00 AM EST [facility] ([facility]) Segun Martínez MD: [address] [place] [address], Ph. Attender: Segun Martínez MD [facility] Medical 06/12/2020 12:00:00 AM EST [facility] ([facility]) Segun Martínez MD: [address] [place] [address], Ph. Attender: Segun Martínez MD [facility] Medical 06/12/2020 12:00:00 AM EST [facility] ([facility]) Segun Martínez MD: [address] [place] [address], Ph. Attender: Segun Martínez MD [facility] Medical 06/01/2020 12:00:00 AM EST [facility] ([facility]) Segun Martínez MD: [address] [place] [address], Ph. Attender: Segun Martínez MD [facility] Medical 06/01/2020 12:00:00 AM EST [facility] ([facility]) Segun Martínez MD: [address] [place] [address], Ph. Attender: Segun Martínez MD [facility] Medical 06/01/2020 12:00:00 AM EST [facility] ([facility]) Segun Martínez MD: [address] [place] [address], Ph. Attender: Segun Martínez MD [facility] Medical 06/01/2020 12:00:00 AM EST [facility] ([facility]) Segun Martínez MD: [address] [place] [address], Ph. Attender: Segun Martínez MD [facility] Medical 06/01/2020 12:00:00 AM EST [facility] ([facility]) Segun Marítnez MD: [address] [place] [address], Ph. Attender: Segun Martínez MD [facility] Medical 06/01/2020 12:00:00 AM EST [facility] ([facility]) Outpatient Attender: Louis Sandoval MD [id number] 05/15/2020 12:00:00 AM [facility] Segun Martínez MD: [address] [place] [address], Ph. Attender: Segun Martínez MD [facility] Medical 04/27/2020 12:00:00 AM EST [facility] ([facility]) Segun Martínez MD: [address] [place] [address], Ph. Attender: Segun Martínez MD [facility] Medical 04/27/2020 12:00:00 AM EST [facility] ([facility]) Segun Martínez MD: [address] [place] [address], Ph. Attender: Segun Martínez MD [facility] Medical 04/27/2020 12:00:00 AM EST [facility] ([facility]) Segun Martínez MD: [address] [place] [address], Ph. Attender: Segun Martínez MD [facility] Medical 04/27/2020 12:00:00 AM EST [facility] ([facility]) Segun Martínez MD: [address] [place] [address], Ph. Attender: Segun Martínez MD [facility] Medical 04/27/2020 12:00:00 AM EST [facility] ([facility]) Segun Martínez MD: [address] [place] [address], Ph. Attender: Segun Martínez MD [facility] Medical 04/27/2020 12:00:00 AM EST [facility] ([facility]) Segun Martínez MD: [address] [place] [address], Ph. Attender: Segun Martínez MD [facility] Medical 04/27/2020 12:00:00 AM EST [facility] ([facility]) Segun Martínez MD: [address] [place] [address], Ph. Attender: Segun Martínez MD [facility] Medical 04/23/2020 12:00:00 AM EST [facility] ([facility]) Segun Martínez MD: [address] [place] [address], Ph. Attender: Segun Martínez MD [facility] Medical 04/23/2020 12:00:00 AM EST [facility] ([facility]) Segun Martínez MD: [address] [place] [address], Ph. Attender: Segun Martínez MD [facility] Medical 04/23/2020 12:00:00 AM EST [facility] ([facility]) Segun Martínez MD: [address] [place] [address], Ph. Attender: Segun Martínez MD [facility] Medical 04/23/2020 12:00:00 AM EST [facility] ([facility]) Segun Martínez MD: [address] [place] [address], Ph. Attender: Segun Martínez MD [facility] Medical 04/23/2020 12:00:00 AM EST [facility] ([facility]) Segun Martínez MD: [address] [place] [address], Ph. Attender: Segun Martínez MD [facility] Medical 04/23/2020 12:00:00 AM EST [facility] ([facility]) Segun Martínez MD: [address] [place] [address], Ph. Attender: Segun Martínez MD [facility] Medical 04/23/2020 12:00:00 AM EST [facility] ([facility]) Segun Martínez MD: [address] [place] [address], Ph. Attender: Segun Martínez MD [facility] Medical 04/23/2020 12:00:00 AM EST [facility] ([facility]) Segun Martínez MD: [address] [place] [address], Ph. Attender: Segun Martínez MD [facility] Medical 04/13/2020 12:00:00 AM EST [facility] ([facility]) Segun Martínez MD: [address] [place] [address], Ph. Attender: Segun Martínez MD [facility] Medical 04/13/2020 12:00:00 AM EST [facility] ([facility]) Segun Martínez MD: [address] [place] [address], Ph. Attender: Segun Martínez MD [facility] Medical 04/13/2020 12:00:00 AM EST [facility] ([facility]) Segun Martínez MD: [address] [place] [address], Ph. Attender: Segun Martínez MD [facility] Medical 04/13/2020 12:00:00 AM EST [facility] ([facility]) Segun Martínez MD: [address] [place] [address], Ph. Attender: Segun Martínez MD [facility] Medical 04/13/2020 12:00:00 AM EST [facility] ([facility]) Segun Martínez MD: [address] [place] [address], Ph. Attender: Segun Martínez MD [facility] Medical 04/13/2020 12:00:00 AM EST [facility] ([facility]) Segun Martínez MD: [address] [place] [address], Ph. Attender: Segun Martínez MD [facility] Medical 03/09/2020 12:00:00 AM EST [facility] ([facility]) Segun Martínez MD: [address] [place] [address], Ph. Attender: Segun Martínez MD [facility] Medical 03/09/2020 12:00:00 AM EST [facility] ([facility]) Segun Martínez MD: [address] [place] [address], Ph. Attender: Segun Martínez MD [facility] Medical 03/09/2020 12:00:00 AM EST [facility] ([facility]) Segun Martínez MD: [address] [place] [address], Ph. Attender: Segun Martínez MD [facility] Medical 03/09/2020 12:00:00 AM EST [facility] ([facility]) Segun Martínez MD: [address] [place] [address], Ph. Attender: Segun Martínez MD [facility] Medical 03/09/2020 12:00:00 AM EST [facility] ([facility]) Segun Martínez MD: [address] [place] [address], Ph. Attender: Segun Martínez MD [facility] Medical 03/09/2020 12:00:00 AM EST [facility] ([facility]) Segun Martínez MD: [address] [place] [address], Ph. Attender: Segun Martínez MD [facility] Medical 03/09/2020 12:00:00 AM EST [facility] ([facility]) Segun Martínez MD: [address] [place] [address], Ph. Attender: Segun Martínez MD [facility] Medical 03/09/2020 12:00:00 AM EST [facility] ([facility]) Segun Martínez MD: [address] [place] [address], Ph. Attender: Segun Martínez MD [facility] Medical 03/09/2020 12:00:00 AM EST [facility] ([facility]) Segun Martínez MD: [address] [place] [address], Ph. Attender: Segun Martínez MD [facility] Medical 03/09/2020 12:00:00 AM EST [facility] ([facility]) Outpatient Attender: TEVIN Robles CHART CLERK 02/03/2020 02:36:00 PM EDT [facility] Outpatient Attender: Jinny Robles CHART CLERK-BC FP 02/03/2020 02: 35:59 PM EDT [facility] Segun Martínez MD: [address] [place] [address], Ph. Attender: Segun Martínez MD [facility] Medical 02/02/2020 12:00:00 AM EDT [facility] ([facility]) Segun Martínez MD: [address] [place] [address], Ph. Attender: Segun Martínez MD [facility] Medical 02/02/2020 12:00:00 AM EDT [facility] ([facility]) Segun Martínez MD: [address] [place] [address], Ph. Attender: Segun Martínez MD [facility] Medical 02/02/2020 12:00:00 AM EDT [facility] ([facility]) Segun Martínez MD: [address] [place] [address], Ph. Attender: Segun Martínez MD [facility] Medical 02/02/2020 12:00:00 AM EDT [facility] ([facility]) Segun Martínez MD: [address] [place] [address], Ph. Attender: Segun Martínez MD [facility] Medical 02/02/2020 12:00:00 AM EDT [facility] ([facility]) Segun Martínez MD: [address] [place] [address], Ph. Attender: Segun Martínez MD [facility] Medical 02/02/2020 12:00:00 AM EDT PATRICIA ([facility]) Segun Martínez MD: [address] [place] [address], Ph. Attender: Segun Martínez MD [facility] Medical 02/02/2020 12:00:00 AM EDT PATRICIA ([facility]) Segun Martínez MD: [address] [place] [address], Ph. Attender: Segun Martínez MD [facility] Medical 02/02/2020 12:00:00 AM EDT PATRICIA ([facility]) Segun Martíenz MD: [address] [place] [address], Ph. Attender: Segun Martínez MD [facility] Medical 02/02/2020 12:00:00 AM EDT PATRICIA ([facility]) Segun Martínez MD: [address] [place] [address], Ph. Attender: Segun Martínez MD [facility] Medical 02/02/2020 12:00:00 AM EDT BENEDICT ([facility]) Segun Martínez MD: [address] [place] [address], Ph. Attender: Segun Martínez MD [facility] Medical 02/02/2020 12:00:00 AM EDT PATRICIA ([facility]) Outpatient Attender: TEVIN ABARCA FP 02/01/2020 03:41:01 PM EDT [facility] Outpatient Attender: TEVIN ABARCA FP 02/01/2020 03:34:00 PM EDT [facility] Immunizations Vaccine Date Status Description Data Source(s) COVID-19 VACCINE Moderna 06/21/2020 12:00:00 AM EDT completed [facility] Vaccine Series Complete: YESThis Data wa s Submitted to [facility] Via [employer]. COVID-19 VACCINE Moderna 05/24/2020 12:00:00 AM EST completed [facility] Vaccine Series Complete: NOThis Data was Submitted to [facility] Via [employer]. New in 2011. IIV4 03/09/2020 04:12:00 PM EST completed 0.5 mL PATRICIA ([facility]) New in 2011. IIV4 03/09/2020 04:12:00 PM EST completed 0.5 mL PATRICIA ([facility]) New in 2011. IIV4 03/09/2020 04:12:00 PM EST completed 0.5 mL PATRICIA ([facility]) New in 2011. IIV4 03/09/2020 04:12:00 PM EST completed .5 mL PATRICIA ([facility]) New in 2011. IIV4 03/09/2020 04:12:00 PM EST completed .5 mL PATRICIA ([facility]) New in 2011. IIV4 03/09/2020 04:12:00 PM EST completed .5 mL PATRICIA ([facility]) New in 2011. IIV4 03/09/2020 04:12:00 PM EST completed .5 mL PATRICIA ([facility]) New in 2011. IIV4 03/09/2020 04:12:00 PM EST completed .5 mL PATRICIA ([facility]) New in 2011. IIV4 03/09/2020 04:12:00 PM EST completed .5 mL PATRICIA ([facility]) New in 2011. IIV4 03/09/2020 04:12:00 PM EST completed .5 mL PATRICIA ([facility]) Medications Medication Brand Name Start Date Product Form Dose Route Admi nistrative Instructions Pharmacy Instructions Status Indications Reaction Description Data Source(s) 2 mg 12/10/2020 12:00:00 AM EDT tablet 60 TAKE TWO TABLETS BY MOUTH EVERY DAY TAKE TWO TABLETS BY MOUTH EVERY DAY SOLD: 12/10/2020 [facility] 37.5 mg 10/17/2020 12:00:00 AM EDT capsule,extended releas e 24hr 60 TAKE ONE CAPSULE BY MOUTH TWO TIMES A DAY TAKE ONE CAPSULE BY MOUTH TWO TIMES A DAY SOLD: 11/04/2020 [facility] MAGNESIUM CITRATE 10/11/2020 12:00:00 AM EDT solution 296 DRINK ONE 10OZ BOTTLE FOR ADDITIONAL PREP AT 2-3 DAYS BEFORE PROCEDURE DRINK ONE 10OZ BOTTLE FOR ADDITIONAL PREP AT 2-3 DAYS BEFORE PROCEDURE SOLD: 10/12/2020 [facility] 17 gram/dose 10/10/2020 12:00:00 AM EDT powder 510 USE DIRECTED PER COLON PREPARATION INSTRUCTIONS USE DIRECTED PER COLON PREPARATION INSTRUCTIONS SOLD: 10/12/2020 [facility] Psyllium 500 MG Oral Capsule [Metamucil] Metamucil 10/10/2020 12 :00:00 AM EDT ORAL active MEDENT ([facility], ) POLYETHYLENE GLYCOL 3350 142 MG/ML Oral Solution [Miralax] M iralax 10/10/2020 12:00:00 AM EDT active M EDENT ([facility]) magnesium citrate 58.2 MG/ML Oral Solution Magnesium Citrate 10/10/2020 12:00:00 AM EDT active MEDENT ([facility]) Benzoyl Peroxide 0.05 MG/MG / clindamyci n phosphate 0.012 MG/MG Topical Gel 1.2 %(1 % base) -5 % CLINDAMYCIN PHOS/BENZOYL PEROX 08/27/2020 12:00:00 AM EDT gel 45 APPLY A PEA SIZED AMOUNT TO ENTIRE APOLINAR ONCE DAILY AT BEDTIME AFTER CLEANSING APPLY A PEA SIZED AMOUNT TO ENTIRE APOLINAR O NCE DAILY AT BEDTIME AFTER CLEANSING SOLD: 09/14/2020 [facility] 37.5 mg 08/18/2020 12:00:00 AM EDT capsule,extended releas e 24hr 60 TAKE ONE CAPSULE BY MOUTH TWICE A DAY TAKE ONE CAPSULE BY MOUTH TWICE A DAY SOLD: 08/23/2020 [facility] 37.5 mg 08/03/2020 12:00:00 AM EDT capsule,extended releas e 24hr 30 TAKE ONE CAPSULE BY MOUTH ONCE A DAY TAKE ONE CAPSULE BY MOUTH ONCE A DAY SOLD: 08/04/2020 [facility] 100 mg 07/21/2020 12:00:00 AM EDT tablet 60 TAKE TWO TABLETS BY MOUTH EVERY DAY TAKE TWO TABLETS BY MOUTH EVERY DAY SOLD: 07/27/2020 [facility] 100 mg 07/21/2020 12:00:00 AM EDT tablet 60 TAKE TWO TABLETS BY MOUTH EVERY DAY TAKE TWO TABLETS BY MOUTH EVERY DAY SOLD: 11/04/2020 [facility] 100 mg 07/21/2020 12:00:00 AM EDT tablet 54 TAKE TWO TABLETS BY MOUTH EVERY DAY TAKE TWO TABLETS BY MOUTH EVERY DAY SOLD: 09/15/2020 [facility] Paroxetine Hydrochloride 10 MG Oral Tablet PAROXETINE HCL 07/20/2020 12:00:00 AM EDT tablet 15 TAKE ONE TABLET BY MOUTH DO RY DAY TAKE ONE TABLET BY MOUTH EVERY DAY SOLD: 07/20/2020 [facility] 20 mg 06/28/2020 12:00:00 AM EDT tablet 15 TAKE ONE TABLET BY MOUTH ONCE A DAY TAKE ONE TABLET BY MOUTH ONCE A DAY SOLD: 06/30/2020 [facility] 100 mg 06/02/2020 12:00:00 AM EST tablet 60 TAKE TWO TABLETS BY MOUTH EVERY DAY TAKE TWO TABLETS BY MOUTH EVERY DAY SOLD: 06/09/2020 [facility] 10 mg 05/22/2020 12:00:00 AM EST tablet 30 TAKE ONE TABLET BY MOUTH EVERY DAY TAKE ONE TABLET BY MOUTH EVERY DAY SOLD: 05/29/2020 [facility] 10 mg 05/22/2020 12:00:00 AM EST tablet 30 TAKE ONE TABLET BY MOUTH EVERY DAY TAKE ONE TABLET BY MOUTH EVERY DAY SOLD: 10/12/2020 [facility] 10 mg 05/22/2020 12:00:00 AM EST tablet 30 TAKE ONE TABLET BY MOUTH EVERY DAY TAKE ONE TABLET BY MOUTH EVERY DAY SOLD: 08/23/2020 [facility] 10 mg 05/22/2020 12:00:00 AM EST tablet 30 TAKE ONE TABLET BY MOUTH EVERY DAY TAKE ONE TABLET BY MOUTH EVERY DAY SOLD: 07/11/2020 [facility] 10 mg 05/22/2020 12:00:00 AM EST tablet 30 TAKE ONE TABLET BY MOUTH EVERY DAY TAKE ONE TABLET BY MOUTH EVERY DAY SOLD: 01/01/2021 [facility] cetirizine hydrochloride 10 MG Oral Tabl et Cetirizine HCl 10 MG Oral Tablet (ZYRTEC) Cetirizine HCl 10 MG Oral Tablet (ZYRTEC) 04/23/2020 12:00:00 AM EST 10 mg Oral active Take 10 mg by mouth [facility] PARoxetine HCl 30 MG Oral Tablet (PAXIL) [address]-4 04/23/2020 12:00:00 AM EST 30 mg Oral active Take 30 mg by leatha th daily [facility] Spironolactone 100 MG Oral Tablet Spironolactone 100 M G Oral Tablet (ALDACTONE) Spironolactone 100 MG Oral Tablet (ALDACTONE) 04/12/2020 12:00:00 AM EST 100 mg Oral active Take 100 mg by mouth [facility] 2 mg 03/10/2020 12:00:00 AM EST tablet 60 TAKE TWO TABLETS BY MOUTH EVERY DAY TAKE TWO TABLETS BY MOUTH EVERY DAY SOLD: 05/15/2020 [facility] 100 mg 03/10/2020 12:00:00 AM EST tablet 30 TAKE ONE TABLET BY MOUTH EVERY DAY TAKE ONE TABLET BY MOUTH EVERY DAY SOLD: 05/15/2020 [facility] 100 mg 03/10/2020 12:00:00 AM EST tablet 30 TAKE ONE TABLET BY MOUTH EVERY DAY TAKE ONE TABLET BY MOUTH EVERY DAY SOLD: 03/12/2020 [facility] Estradiol 2 MG Oral Tablet Estradiol 2 MG Oral Tablet (ESTRACE) Estradiol 2 MG Oral Tablet (ESTRACE) 03/10/2020 12:00:00 AM EST 4 mg Oral active Take 4 mg by mouth daily [facility] 100 mg 03/10/2020 12:00:00 AM EST tablet 30 TAKE ONE TABLET BY MOUTH EVERY DAY TAKE ONE TABLET BY MOUTH EVERY DAY SOLD: 04/12/2020 [facility] 2 mg 03/10/2020 12:00:00 AM EST tablet 60 TAKE TWO TABLETS BY MOUTH EVERY DAY TAKE TWO TABLETS BY MOUTH EVERY DAY SOLD: 08/23/2020 [facility] 2 mg 03/10/2020 12:00:00 AM EST tablet 60 TAKE TWO TABLETS BY MOUTH EVERY DAY TAKE TWO TABLETS BY MOUTH EVERY DAY SOLD: 03/12/2020 [facility] 50 mg 02/19/2020 12:00:00 AM EST tablet 30 TAKE ONE TABLET BY MOUTH ONCE DAILY TAKE ONE TABLET BY MOUTH ONCE DAILY SOLD: 02/19/2020 [facility] Paroxetine Hydrochloride 30 MG Oral Tablet PAROXETINE HCL 01/27/2020 12:00:00 AM EDT tablet 30 TAKE ONE TABLET BY MOUTH DO DAY TAKE ONE TABLET BY MOUTH EVERY DAY SOLD: 05/16/2020 [facility] Paroxetine Hydrochloride 30 MG Oral Tablet PAROXETINE HCL 01/27/2020 12:00:00 AM EDT tablet 30 TAKE ONE TABLET BY MOUTH DO DAY TAKE ONE TABLET BY MOUTH EVERY DAY SOLD: 03/19/2020 [facility] Paroxetine Hydrochloride 30 MG Oral Tablet PAROXETINE HCL 01/27/2020 12:00:00 AM EDT tablet 30 TAKE ONE TABLET BY MOUTH DO TAKE ONE TABLET BY MOUTH EVERY DAY SOLD: 04/24/2020 [facility] 2 mg 01/18/2020 12:00:00 AM EDT tablet 30 TAKE ONE TABLET BY MOUTH EVERY DAY TAKE ONE TABLET BY MOUTH EVERY DAY SOLD: 02/19/2020 [facility] 2 mg 01/18/2020 12:00:00 AM EDT tablet 30 TAKE ONE TABLET BY MOUTH EVERY DAY TAKE ONE TABLET BY MOUTH EVERY DAY SOLD: 10/12/2020 [facility] 2 mg 01/18/2020 12:00:00 AM EDT tablet 30 TAKE ONE TABLET BY MOUTH EVERY DAY TAKE ONE TABLET BY MOUTH EVERY DAY SOLD: 01/18/2020 [facility] 10 mg 11/14/2019 12:00:00 AM EDT tablet 30 TAKE ONE TABLET BY MOUTH EVERY DAY TAKE ONE TABLET BY MOUTH EVERY DAY SOLD: 01/04/2020 [facility] 10 mg 11/14/2019 12:00:00 AM EDT tablet 30 TAKE ONE TABLET BY MOUTH EVERY DAY TAKE ONE TABLET BY MOUTH EVERY DAY SOLD: 03/19/2020 [facility] 10 mg 11/14/2019 12:00:00 AM EDT tablet 30 TAKE ONE TABLET BY MOUTH EVERY DAY TAKE ONE TABLET BY MOUTH EVERY DAY SOLD: 04/24/2020 [facility] 50 mg 11/13/2019 12:00:00 AM EDT tablet 30 TAKE ONE TABLET BY MOUTH EVERY DAY TAKE ONE TABLET BY MOUTH EVERY DAY SOLD: 01/18/2020 [facility] 50 mg 11/13/2019 12:00:00 AM EDT tablet 30 TAKE ONE TABLET BY MOUTH EVERY DAY TAKE ONE TABLET BY MOUTH EVERY DAY SOLD: 12/13/2019 [facility] 2 mg 10/12/2019 12:00:00 AM EDT tablet 30 TAKE ONE TABLET BY MOUTH ONCE DAILY TAKE ONE TABLET BY MOUTH ONCE DAILY SOLD: 12/13/2019 [facility] Paroxetine Hydrochloride 30 MG Oral Tablet PAROXETINE HCL 09/08/2019 12:00:00 AM EDT tablet 30 TAKE ONE TABLET BY MOUTH DO RY DAY TAKE ONE TABLET BY MOUTH EVERY DAY SOLD: 12/02/2019 [facility] Paroxetine Hydrochloride 30 MG Oral Tablet PAROXETINE HCL 09/08/2019 12:00:00 AM EDT tablet 30 TAKE ONE TABLET BY MOUTH DO RY DAY TAKE ONE TABLET BY MOUTH EVERY DAY SOLD: 01/04/2020 [facility] paroxetine 20 mg tablet TAKE ONE TABLET BY MOUTH ONCE A DAY [id number] completed paroxetine hydrochloride 20 MG O ral Tablet BENEDICT ([facility]) Spironolactone 50 MG Oral Tablet spirono lactone 50 mg tablet TAKE ONE TABLET BY MOUTH ONCE DAILY spironolactone 50 mg tablet TAKE ONE TAB LET BY MOUTH ONCE DAILY completed spironolactone 5 0 MG Oral Tablet [facility]) Spironolactone 50 MG Oral Tablet spirono lactone 50 mg tablet TAKE ONE TABLET BY MOUTH ONCE DAILY spironolactone 50 mg tablet TAKE ONE TAB LET BY MOUTH ONCE DAILY completed spironolactone 5 0 MG Oral Tablet [facility]) Spironolactone 50 MG Oral Tablet spirono lactone 50 mg tablet TAKE ONE TABLET BY MOUTH ONCE DAILY spironolactone 50 mg tablet TAKE ONE TAB LET BY MOUTH ONCE DAILY completed spironolactone 5 0 MG Oral Tablet [facility]) paroxetine 10 mg tablet TAKE ONE TABLET BY MOUTH EVERY DAY [id number] completed paroxetine hydrochloride 10 MG O ral Tablet [facility]) paroxetine 20 mg tablet 053231 complet ed paroxetine hydrochloride 20 MG Oral Tablet PATRICIA ([facility]) paroxetine 20 mg tablet [id number] complet ed paroxetine hydrochloride 20 MG Oral Tablet PATRICIA ([facility]) Spironolactone 50 MG Oral Tablet spirono lactone 50 mg tablet TAKE ONE TABLET BY MOUTH ONCE DAILY spironolactone 50 mg tablet TAKE ONE TAB LET BY MOUTH ONCE DAILY completed spironolactone 5 0 MG [facility] par[facility] 20 mg tablet [id number] complet ed paroxetine hydrochloride 20 MG Oral Tablet [facility] ([facility]) Spironolactone 50 MG Oral Tablet spirono lactone 50 mg tablet TAKE ONE TABLET BY MOUTH ONCE DAILY spironolactone 50 mg tablet TAKE ONE TAB LET BY MOUTH ONCE DAILY completed spironolactone 5 0 MG Oral Tablet PATRICIA ([facility]) Spironolactone 50 MG Oral Tablet spirono lactone 50 mg tablet TAKE ONE TABLET BY MOUTH ONCE DAILY spironolactone 50 mg tablet TAKE ONE TAB LET BY MOUTH ONCE DAILY completed spironolactone 5 0 MG Oral Tablet PATRICIA ([facility]) paroxetine 20 mg tablet [id number] complet ed paroxetine hydrochloride 20 MG Oral Tablet PATRICIA ([facility]) paroxetine 20 mg tablet TAKE ONE TABLET BY MOUTH ONCE A DAY [id number] completed paroxetine hydrochloride 20 MG O ral Tablet PATRICIA ([facility]) Spironolactone 50 MG Oral Tablet spirono lactone 50 mg tablet TAKE ONE TABLET BY MOUTH ONCE DAILY spironolactone 50 mg tablet TAKE ONE TAB LET BY MOUTH ONCE DAILY completed spironolactone 5 0 MG Oral Tablet PATRICIA ([facility]) paroxetine 10 mg tablet TAKE ONE TABLET BY MOUTH EVERY DAY completed paroxetine hydrochloride 10 MG O ral Tablet BENEDICT ([facility]) Spironolactone 50 MG Oral Tablet spirono lactone 50 mg tablet TAKE ONE TABLET BY MOUTH ONCE DAILY spironolactone 50 mg tablet TAKE ONE TAB LET BY MOUTH ONCE DAILY completed spironolactone 5 0 MG Oral Tablet PATRICIA ([facility]) paroxetine 30 mg tablet TAKE ONE TABLET BY MOUTH EVERY DAY [id number] completed paroxetine hydrochloride 30 MG O ral Tablet PATRICIA ([facility]) paroxetine 30 mg tablet TAKE ONE TABLET BY MOUTH EVERY DAY [id number] completed paroxetine hydrochloride 30 MG O ral Tablet PATRICIA ([facility]) paroxetine 10 mg tablet TAKE ONE TABLET BY MOUTH EVERY DAY completed paroxetine hydrochloride 10 MG O ral Tablet BENEDICT ([facility]) paroxetine 20 mg tablet [id number] complet ed paroxetine hydrochloride 20 MG Oral Tablet PATRICIA ([facility]) paroxetine 30 mg tablet TAKE ONE TABLET BY MOUTH EVERY DAY [id number] completed paroxetine hydrochloride 30 MG O ral Tablet PATRICIA ([facility]) paroxetine 20 mg tablet TAKE ONE TABLET BY MOUTH ONCE A DAY 615870 completed paroxetine hydrochloride 20 MG O ral Tablet PATRICIA ([facility]) Spironolactone 50 MG Oral Tablet spirono lactone 50 mg tablet TAKE ONE TABLET BY MOUTH ONCE DAILY spironolactone 50 mg tablet TAKE ONE TAB LET BY MOUTH ONCE DAILY completed spironolactone 5 0 MG Oral Tablet PATRICIA ([facility]) paroxetine 30 mg tablet TAKE ONE TABLET BY MOUTH EVERY DAY [id number] completed paroxetine hydrochloride 30 MG O ral Tablet PATRICIA ([facility]) paroxetine 20 mg tablet 448963 complet ed paroxetine hydrochloride 20 MG Oral Tablet PATRICIA ([facility]) Spironolactone 50 MG Oral Tablet spirono lactone 50 mg tablet TAKE ONE TABLET BY MOUTH ONCE DAILY spironolactone 50 mg tablet TAKE ONE TAB LET BY MOUTH ONCE DAILY completed spironolactone 5 0 MG Oral Tablet PATRICIA ([facility]) Insurance Providers Payer name Policy type / Coverage type Policy ID Covered alliance party ID Covered alliance party's relationship to waite Policy Waite Plan Information [facility] P [id number] P [id number] Medicaid Dental O [id number] S [id number] Medicaid S [id number] S [id number] MEDICARE [id number] SP [id number] MEDICARE [id number] SP [id number] MEDICARE A [id number] Self [id number] Medicaid S [id number] S [id number] Medicare P [id number] S [id number] Medicare P [id number] S [id number] Medicaid S [id number] S [id number] Medicare P [id number] S [id number] Medicare P [id number] S [id number] Medicaid S [id number] S [id number] Medicaid S [id number] S [id number] Medicaid S [id number] S [id number] MEDICAID M [id number] Self [id number] EMEDNY [id number] SP [id number] MEDICAID [id number] SP [id number] Medicare P [id number] S [id number] Medicaid [place] Medigap Part B [id number] Self [id number] Medicare Natl Gov't Servi Medicare Primary [id number] Self [id number] PGBA [facility] [id number] MEDICARE [id number] SP [id number] MEDICAID M [id number] S [id number] PGBA DEER GINA O [id number] S [id number] [facility] P [id number] S [id number] [facility] P [id number] S [id number] D [employer] [facility] O [id number] S [id number] PGBA [facility] [id number] FA2 [id number] [facility] MEDICAID [id number] SP [id number] T Problems, Conditions, and Diagnoses Code Display Name Description Problem Type Effective Dates Data Source(s) 253492777 Body mass index 25-29 - overweight Body Mass Ind ex 25-29 - Overweight Problem 07/03/2020 12:00:00 AM EDSergio GOMEZ ([facility]) [id number] Body mass index 25-29 - overweight Body Mass Ind ex 25-29 - Overweight Problem 07/03/2020 12:00:00 AM EDT PATRICIA ([facility]) 697092805 Body mass index 25-29 - overweight Body Mass Ind ex 25-29 - Overweight Problem 07/03/2020 12:00:00 AM EDT PATRICIA ([facility]) 565706363 Body mass index 25-29 - overweight Body Mass Ind ex 25-29 - Overweight Problem 07/03/2020 12:00:00 AM EDSergio GOMEZ ([facility]) [id number] Hirsutism Hirsutism Problem 06/01/2020 12:00:00 AM SIDNEY GOMEZ ([facility]) 756338887 Hirsutism Hirsutism Problem 06/01/2020 12:00:00 AM S[place]NEY [place] PATRICIA ([facility]) 795461744 Hirsutism Hirsutism Problem 06/01/2020 12:00:00 AM [place] PATRICIA ([facility]) 735695088 Hirsutism Hirsutism Problem 06/01/2020 12:00:00 AM SIDNEY GOMEZ ([facility]) 528743325 Hirsutism Hirsutism Problem 06/01/2020 12:00:00 AM SIDNEY GOMEZ ([facility]) [id number] Hirsutism Hirsutism Problem 06/01/2020 12:00:00 AM [place] PATRICIA ([facility]) 854680130 Hematochezia Hematochezia Problem 03/09/2020 12:00:00 A Leandro PEREZENA ([facility]) 659858382 Hematochezia Hematochezia Problem 03/09/2020 12:00:00 A Leandro PEREZENA ([facility]) [id number] Hematochezia Hematochezia Problem 03/09/2020 12:00:00 A EMERITA PATRICIA ([facility]) [id number] Hematochezia Hematochezia Problem 03/09/2020 12:00:00 A EMERITA PATRICIA ([facility]) 767092481 Hematochezia Hematochezia Problem 03/09/2020 12:00:00 A Leandro PEREZENA ([facility]) [id number] Hematochezia Hematochezia Problem 03/09/2020 12:00:00 A Leandro FELDER PATRICIA ([facility]) [id number] Hematochezia Hematochezia Problem 03/09/2020 12:00:00 A Leandro FELDER PATRICIA ([facility]) [id number] Hematochezia Hematochezia Problem 03/09/2020 12:00:00 A M EMERITA PATRICIA ([facility]) [id number] Hematochezia Hematochezia Problem 03/09/2020 12:00:00 A M EMERITA PATRICIA ([facility]) [id number] Hematochezia Hematochezia Problem 03/09/2020 12:00:00 A M EST PATRICIA ([facility]) 521.00 Dental caries Dental caries 02/03/2020 02:35:10 PM EDT [facility] [id number] Finding of esophagus Finding of Esophagus Problem 01/19/2020 05:36:26 PM EDT PATRICIA ([facility]) 888149347 Finding of esophagus Finding of Esophagus Problem 01/19/2020 05:36:26 PM EDT PATRICIA ([facility]) 217705404 Finding of esophagus Finding of Esophagus Problem 01/19/2020 05:36:26 PM EDT PATRICIA ([facility]) 294676830 Finding of esophagus Finding of Esophagus Problem 01/19/2020 05:36:26 PM EDT PATRICIA ([facility]) 104331204 Finding of esophagus Finding of Esophagus Problem 01/19/2020 05:36:26 PM EDT PATRICIA ([facility]) 159958277 Finding of esophagus Finding of Esophagus Problem 01/19/2020 05:36:26 PM EDT PATRICIA ([facility]) [id number] Finding of esophagus Finding of Esophagus Problem 01/19/2020 05:36:26 PM EDT PATRICIA ([facility]) [id number] Finding of esophagus Finding of Esophagus Problem 01/19/2020 05:36:26 PM EDT PATRICIA ([facility]) [id number] Finding of esophagus Finding of Esophagus Problem 01/19/2020 05:36:26 PM EDT PATRICIA ([facility]) [id number] Finding of esophagus Finding of Esophagus Problem 01/19/2020 05:36:26 PM EDT PATRICIA ([facility]) [id number] Finding of esophagus Finding of Esophagus Problem 01/19/2020 05:36:26 PM EDT PATRICIA ([facility]) [id number] SNOMED CT Concept SNOMED CT Concept Problem 01/18 05:36:25 PM EDT PATRICIA ([facility]) [id number] Asthma Asthma Problem 01/19/2020 05:36:25 PM ED T PATRICIA ([facility]) 588189385 SNOMED CT Concept SNOMED CT Concept Problem 01/18 05:36:25 PM EDT PATRICIA ([facility]) 354310619 Asthma Asthma Problem 01/19/2020 05:36:25 PM ED T PATRICIA ([facility]) [id number] SNOMED CT Concept SNOMED CT Concept Problem 01/18 05:36:25 PM EDT PATRICIA ([facility]) 943022248 Asthma Asthma Problem 01/19/2020 05:36:25 PM ED T PATRICIA ([facility]) 715574409 SNOMED CT Concept SNOMED CT Concept Problem 01/18 05:36:25 PM EDT PATRICIA ([facility]) [id number] Asthma Asthma Problem 01/19/2020 05:36:25 PM ED T PATRICIA ([facility]) [id number] SNOMED CT Concept SNOMED CT Concept Problem 01/18 05:36:25 PM EDT PATRICIA ([facility]) 724189000 Asthma Asthma Problem 01/19/2020 05:36:25 PM ED T PATRICIA ([facility]) 854814380 SNOMED CT Concept SNOMED CT Concept Problem 01/18 05:36:25 PM EDT PATRICIA ([facility]) 833835014 Asthma Asthma Problem 01/19/2020 05:36:25 PM ED T PATRICIA ([facility]) 325324258 SNOMED CT Concept SNOMED CT Concept Problem 01/18 05:36:25 PM EDT PATRICIA ([facility]) 708374974 Asthma Asthma Problem 01/19/2020 05:36:25 PM ED T PATRICIA ([facility]) 260246938 SNOMED CT Concept SNOMED CT Concept Problem 01/18 05:36:25 PM EDT PATRICIA ([facility]) [id number] Asthma Asthma Problem 01/19/2020 05:36:25 PM ED T PATRICIA ([facility]) 632312214 SNOMED CT Concept SNOMED CT Concept Problem 01/18 05:36:25 PM EDT PATRICIA ([facility]) [id number] Asthma Asthma Problem 01/19/2020 05:36:25 PM ED T PATRICIA ([facility]) 521490420 SNOMED CT Concept SNOMED CT Concept Problem 01/18 05:36:25 PM EDT PATRICIA ([facility]) [id number] Asthma Asthma Problem 01/19/2020 05:36:25 PM ED T PATRICIA ([facility]) 746787472 SNOMED CT Concept SNOMED CT Concept Problem 01/18 05:36:25 PM EDT PATRICIA ([facility]) 119896550 Asthma Asthma Problem 01/19/2020 05:36:25 PM ED T PATRICIA ([facility]) Surgeries/Procedures Procedure Description Date Indications Data Source(s) OFFICE OUTPATIENT NEW 45 MINUTES 10/10/2020 12:00:00 A M EDT MEDBENNETT ([facility], ) Results ID Date Data Source [id number] 06/12/2020 09:10:00 AM EST PATRICIA ([facility]) Name Value Range Interpretation Code Description Data Quita rce(s) Supporting Document(s) total 25(oh) vitamin D 8.6 NG/mL 30.0-100.0 Below low normal T otal 25(Oh) Vitamin D [facility]) ID Date Data Source [id number] 06/12/2020 09:10:00 AM EST [facility] Name Value Range Interpretation Code Description Data Quita rce(s) Supporting Document(s) thyroid stimulating hormone 2.490 uIU/mL 0.358-3.740 Thyroid Stimulating Hormone BENEDICT ([facility]) ID Date Data Source [id number] 06/12/2020 09:10:00 AM EST PATRICIA ([facility]) Name Value Range Interpretation Code Description Data Quita rce(s) Supporting Document(s) estradiol 30.2 pg/mL <39.8 Estradiol PATRICIA ([facility]) ID Date Data Source [id number] 06/12/2020 09:10:00 AM [facility] Name Value Range Interpretation Code Description Data Quita rce(s) Supporting Document(s) testosterone 365 NG/dL [phone] Testosterone PATRICIA ([facility]) ID Date Data Source [id number] 06/12/2020 09:10:00 AM EST PATRICIA ([facility]) Name Value Range Interpretation Code Description Data Quita rce(s) Supporting Document(s) triglycerides level 166 mg/dL <150 Above high normal Triglycer ides Level PATRICIA ([facility]) Cholesterol in LDL [Mass/volume] in Serum or Plasma 59 mg/dL <1 00 LDL Cholesterol PATRICIA ([facility]) non-HDL-C 92 mg/dL Non-hdl-c PATRICIA ([facility]) cholesterol level 136 mg/dL <200 Cholesterol Level PATRICIA ([facility]) HDL cholesterol 44 mg/dL >40 HDL Cholesterol ATHE ([facility]) cholesterol risk ratio <5 Cholesterol R isk Ratio BENEDICT ([facility]) ID Date Data Source [id number] 06/12/2020 09:10:00 AM EST BENEDICT ([facility]) Name Value Range Interpretation Code Description Data Quita rce(s) Supporting Document(s) glucose, fasting 84 mg/dL 70-100 Glucose, Fasting AT [facility]) blood urea nitrogen 17 mg/dL 7-18 Blood Urea Nitro gen PATRICIA ([facility]) creatinine for GFR 1.01 mg/dL 0.70-1.30 Creatinine for GF R BENEDICT ([facility]) glomerular filtration rate > 60.0 >60 Glomerula r Filtration Rate PATRICIA ([facility]) potassium serum 4.4 mEq/L 3.5-5.1 Potassium Serum ATHE NA ([facility]) sodium level 137 mEq/L 136-145 Sodium Level PATRICIA ([facility]) carbon dioxide level 26 mEq/L 21-32 Carbon Dioxide Level PATRICIA ([facility]) chloride level 104 mEq/L 98-107 Chloride Level BENEDICT ([facility]) anion gap 7 mEq/L 8-16 Below low normal Anion Gap PATRICIA ( [facility]) ALT/SGPT 36 U/L 12-78 ALT/SGPT PATRICIA ([facility]) alkaline phosphatase 82 U/L 45-117 Alkaline Phosph atase PATRICIA ([facility]) calcium level 9.7 mg/dL 8.5-10.1 Calcium Level PATIRCIA ( [facility]) AST/SGOT 22 U/L 7-37 AST/SGOT PATRICIA ([facility]) albumin 4.1 gm/dL 3.2-5.2 Albumin PATRICIA ([facility]) bilirubin,total 0.4 mg/dL 0.2-1.0 Bilirubin,total ATHE NA ([facility]) total protein 7.5 gm/dL 6.4-8.2 Total Protein PATRICIA ( [facility]) albumin/globulin ratio Albumin/globu vlad Ratio PATRICIA ([facility]) ID Date Data Source [id number] 06/12/2020 09:10:00 AM EST PATRICIA ([facility]) Name Value Range Interpretation Code Description Data Quita rce(s) Supporting Document(s) total 25(oh) vitamin D 8.6 NG/mL 30.0-100.0 Below low normal T otal 25(Oh) Vitamin D PATRICIA ([facility]) ID Date Data Source [id number] 06/12/2020 09:10:00 AM EST PATRICIA ([facility]) Name Value Range Interpretation Code Description Data Quita rce(s) Supporting Document(s) thyroid stimulating hormone 2.490 uIU/mL 0.358-3.740 Thyroid Stimulating Hormone PATRICIA ([facility]) ID Date Data Source [id number] 06/12/2020 09:10:00 AM EST PATRICIA ([facility]) Name Value Range Interpretation Code Description Data Quita rce(s) Supporting Document(s) estradiol 30.2 pg/mL <39.8 Estradiol PATRICIA ([facility]) ID Date Data Source [id number] 06/12/2020 09:10:00 AM EST PATRICIA ([facility]) Name Value Range Interpretation Code Description Data Quita rce(s) Supporting Document(s) testosterone 365 NG/dL 241-827 Testosterone PATRICIA ([facility]) ID Date Data Source [id number] 06/12/2020 09:10:00 AM EST PATRICIA ([facility]) Name Value Range Interpretation Code Description Data Qiuta rce(s) Supporting Document(s) cholesterol level 136 mg/dL <200 Cholesterol Level PATRICIA ([facility]) triglycerides level 166 mg/dL <150 Above high normal Triglycer ides Level PATRICIA ([facility]) HDL cholesterol 44 mg/dL >40 HDL Cholesterol ATHE ([facility]) Cholesterol in LDL [Mass/volume] in Serum or Plasma 59 mg/dL <1 00 LDL Cholesterol PATRICIA ([facility]) non-HDL-C 92 mg/dL Non-hdl-c PATRICIA ([facility]) cholesterol risk ratio <5 Cholesterol R isk Ratio PATRICIA ([facility]) ID Date Data Source [id number] 06/12/2020 09:10:00 AM EST BENEDICT ([facility]) Name Value Range Interpretation Code Description Data Quita rce(s) Supporting Document(s) glucose, fasting 84 mg/dL 70-100 Glucose, Fasting AT [facility] ([facility]) blood urea nitrogen 17 mg/dL 7-18 Blood Urea Nitro gen PATRICIA ([facility]) sodium level 137 mEq/L 136-145 Sodium Level PATRICIA ([facility]) creatinine for GFR 1.01 mg/dL 0.70-1.30 Creatinine for GF R PATRICIA ([facility]) glomerular filtration rate > 60.0 >60 Glomerula r Filtration Rate PATRICIA ([facility]) chloride level 104 mEq/L 98-107 Chloride Level PATRICIA ([facility]) potassium serum 4.4 mEq/L 3.5-5.1 Potassium Serum ATHE NA ([facility]) carbon dioxide level 26 mEq/L 21-32 Carbon Dioxide Level PATRICIA ([facility]) anion gap 7 mEq/L 8-16 Below low normal Anion Gap PATRICIA ( [facility]) AST/SGOT 22 U/L 7-37 AST/SGOT PATRICIA ([facility]) calcium level 9.7 mg/dL 8.5-10.1 Calcium Level PATRICIA ( [facility]) ALT/SGPT 36 U/L 12-78 ALT/SGPT PATRICIA ([facility]) alkaline phosphatase 82 U/L 45-117 Alkaline Phosph atase PATRICIA ([facility]) bilirubin,total 0.4 mg/dL 0.2-1.0 Bilirubin,total ATHE NA ([facility]) total protein 7.5 gm/dL 6.4-8.2 Total Protein PATRICIA ( [facility]) albumin 4.1 gm/dL 3.2-5.2 Albumin PATRICIA ([facility]) albumin/globulin ratio Albumin/globu vlad Ratio PATRICIA ([facility]) ID Date Data Source [id number] 06/12/2020 09:10:00 AM EST PATRICIA ([facility]) Name Value Range Interpretation Code Description Data Quita rce(s) Supporting Document(s) total 25(oh) vitamin D 8.6 NG/mL 30.0-100.0 Below low normal T otal 25(Oh) Vitamin D PATRICIA ([facility]) ID Date Data Source [id number] 06/12/2020 09:10:00 AM EST PATRICIA ([facility]) Name Value Range Interpretation Code Description Data Quita rce(s) Supporting Document(s) thyroid stimulating hormone 2.490 uIU/mL 0.358-3.740 Thyroid Stimulating Hormone PATRICIA ([facility]) ID Date Data Source [id number] 06/12/2020 09:10:00 AM EST PATRICIA ([facility]) Name Value Range Interpretation Code Description Data Quita rce(s) Supporting Document(s) estradiol 30.2 pg/mL <39.8 Estradiol PATRICIA ([facility]) ID Date Data Source [id number] 06/12/2020 09:10:00 AM EST PATRICIA ([facility]) Name Value Range Interpretation Code Description Data Quita rce(s) Supporting Document(s) testosterone 365 NG/dL 241-827 Testosterone PATRICIA (No [facility]) ID Date Data Source [id number] 06/12/2020 09:10:00 AM EST PATRICIA ([facility]) Name Value Range Interpretation Code Description Data Quita rce(s) Supporting Document(s) triglycerides level 166 mg/dL <150 Above high normal Triglycer ides Level PATRICIA ([facility]) Cholesterol in LDL [Mass/volume] in Serum or Plasma 59 mg/dL <1 00 LDL Cholesterol PATRICIA ([facility]) HDL cholesterol 44 mg/dL >40 HDL Cholesterol ATHE NA ([facility]) cholesterol level 136 mg/dL <200 Cholesterol Level PATRICIA ([facility]) non-HDL-C 92 mg/dL Non-hdl-c PATRICIA ([facility]) cholesterol risk ratio <5 Cholesterol R isk Ratio PATRICIA ([facility]) ID Date Data Source [id number] 06/12/2020 09:10:00 AM EST PATRICIA ([facility]) Name Value Range Interpretation Code Description Data Quita rce(s) Supporting Document(s) glucose, fasting 84 mg/dL 70-100 Glucose, Fasting AT [facility] ([facility]) blood urea nitrogen 17 mg/dL 7-18 Blood Urea Nitro gen PATRICIA ([facility]) creatinine for GFR 1.01 mg/dL 0.70-1.30 Creatinine for GF R PATRICIA ([facility]) sodium level 137 mEq/L 136-145 Sodium Level PATRICIA (No [facility]) glomerular filtration rate > 60.0 >60 Glomerula r Filtration Rate PATRICIA ([facility]) carbon dioxide level 26 mEq/L 21-32 Carbon Dioxide Level PATRICIA ([facility]) chloride level 104 mEq/L 98-107 Chloride Level PATRICIA ([facility]) potassium serum 4.4 mEq/L 3.5-5.1 Potassium Serum ATHE NA ([facility]) anion gap 7 mEq/L 8-16 Below low normal Anion Gap PATRICIA ( [facility]) calcium level 9.7 mg/dL 8.5-10.1 Calcium Level PATRICIA ( [facility]) alkaline phosphatase 82 U/L 45-117 Alkaline Phosph atase PATRICIA ([facility]) ALT/SGPT 36 U/L 12-78 ALT/SGPT PATRICIA ([facility]) AST/SGOT 22 U/L 7-37 AST/SGOT PATRICIA ([facility]) total protein 7.5 gm/dL 6.4-8.2 Total Protein PATRICIA ( [facility]) bilirubin,total 0.4 mg/dL 0.2-1.0 Bilirubin,total ATHE NA ([facility]) albumin/globulin ratio Albumin/globu vlad Ratio PATRICIA ([facility]) albumin 4.1 gm/dL 3.2-5.2 Albumin PATRICIA ([facility]) ID Date Data Source [id number] 06/12/2020 09:10:00 AM EST PATRICIA ([facility]) Name Value Range Interpretation Code Description Data Quita rce(s) Supporting Document(s) total 25(oh) vitamin D 8.6 NG/mL 30.0-100.0 Below low normal T otal 25(Oh) Vitamin D PATRICIA ([facility]) ID Date Data Source [id number] 06/12/2020 09:10:00 AM EST PATRICIA ([facility]) Name Value Range Interpretation Code Description Data Quita rce(s) Supporting Document(s) thyroid stimulating hormone 2.490 uIU/mL 0.358-3.740 Thyroid Stimulating Hormone PATRICIA ([facility]) ID Date Data Source [id number] 06/12/2020 09:10:00 AM EST PATRICIA ([facility]) Name Value Range Interpretation Code Description Data Quita rce(s) Supporting Document(s) estradiol 30.2 pg/mL <39.8 Estradiol PATRICIA ([facility]) ID Date Data Source [id number] 06/12/2020 09:10:00 AM EST PATRICIA ([facility]) Name Value Range Interpretation Code Description Data Quita rce(s) Supporting Document(s) testosterone 365 NG/dL 241-827 Testosterone PATRICIA ([facility]) ID Date Data Source [id number] 06/12/2020 09:10:00 AM EST PATRICIA ([facility]) Name Value Range Interpretation Code Description Data Quita rce(s) Supporting Document(s) triglycerides level 166 mg/dL <150 Above high normal Triglycer ides Level PATRICIA ([facility]) HDL cholesterol 44 mg/dL >40 HDL Cholesterol ATHE ([facility]) cholesterol level 136 mg/dL <200 Cholesterol Level PATRICIA ([facility]) Cholesterol in LDL [Mass/volume] in Serum or Plasma 59 mg/dL <1 00 LDL Cholesterol PATRICIA ([facility]) non-HDL-C 92 mg/dL Non-hdl-c PATRICIA ([facility]) cholesterol risk ratio <5 Cholesterol R isk Ratio PATRICIA ([facility]) ID Date Data Source [id number] 06/12/2020 09:10:00 AM EST PATRICIA ([facility]) Name Value Range Interpretation Code Description Data Quita rce(s) Supporting Document(s) glucose, fasting 84 mg/dL 70-100 Glucose, Fasting AT [facility] ([facility]) creatinine for GFR 1.01 mg/dL 0.70-1.30 Creatinine for GF R PATRICIA ([facility]) blood urea nitrogen 17 mg/dL 7-18 Blood Urea Nitro gen PATRICIA ([facility]) glomerular filtration rate > 60.0 >60 Glomerula r Filtration Rate PATRICIA ([facility]) potassium serum 4.4 mEq/L 3.5-5.1 Potassium Serum ATHE NA ([facility]) sodium level 137 mEq/L 136-145 Sodium Level PATRICIA ([facility]) anion gap 7 mEq/L 8-16 Below low normal Anion Gap PATRICIA ( [facility]) chloride level 104 mEq/L 98-107 Chloride Level PATRICIA ([facility]) carbon dioxide level 26 mEq/L 21-32 Carbon Dioxide Level PATRICIA ([facility]) AST/SGOT 22 U/L 7-37 AST/SGOT PATRICIA ([facility]) calcium level 9.7 mg/dL 8.5-10.1 Calcium Level PATRICIA ( [facility]) ALT/SGPT 36 U/L 12-78 ALT/SGPT PATRICIA ([facility]) bilirubin,total 0.4 mg/dL 0.2-1.0 Bilirubin,total ATHE NA ([facility]) albumin 4.1 gm/dL 3.2-5.2 Albumin PATRICIA ([facility]) alkaline phosphatase 82 U/L 45-117 Alkaline Phosph atase PATRICIA ([facility]) total protein 7.5 gm/dL 6.4-8.2 Total Protein PATRICIA ( [facility]) albumin/globulin ratio Albumin/globu vlad Ratio PATRICIA ([facility]) ID Date Data Source [id number] 06/12/2020 09:10:00 AM EST PATRICIA ([facility]) Name Value Range Interpretation Code Description Data Quita rce(s) Supporting Document(s) total 25(oh) vitamin D 8.6 NG/mL 30.0-100.0 Below low normal T otal 25(Oh) Vitamin D PATRICIA ([facility]) ID Date Data Source [id number] 06/12/2020 09:10:00 AM EST PATRICIA ([facility]) Name Value Range Interpretation Code Description Data Quita rce(s) Supporting Document(s) thyroid stimulating hormone 2.490 uIU/mL 0.358-3.740 Thyroid Stimulating Hormone PATRICIA ([facility]) ID Date Data Source [id number] 06/12/2020 09:10:00 AM EST PATRICIA ([facility]) Name Value Range Interpretation Code Description Data Quita rce(s) Supporting Document(s) estradiol 30.2 pg/mL <39.8 Estradiol PATRICIA ([facility]) ID Date Data Source [id number] 06/12/2020 09:10:00 AM EST PATRICIA ([facility]) Name Value Range Interpretation Code Description Data Quita rce(s) Supporting Document(s) testosterone 365 NG/dL 241-827 Testosterone PATRICIA (No [facility]) ID Date Data Source [id number] 06/12/2020 09:10:00 AM EST PATRICIA ([facility]) Name Value Range Interpretation Code Description Data Quita rce(s) Supporting Document(s) HDL cholesterol 44 mg/dL >40 HDL Cholesterol ATHE NA ([facility]) triglycerides level 166 mg/dL <150 Above high normal Triglycer ides Level PATRICIA ([facility]) cholesterol level 136 mg/dL <200 Cholesterol Level PATRICIA ([facility]) Cholesterol in LDL [Mass/volume] in Serum or Plasma 59 mg/dL <1 00 LDL Cholesterol PATRICIA ([facility]) cholesterol risk ratio <5 Cholesterol R isk Ratio PATRICIA ([facility]) non-HDL-C 92 mg/dL Non-hdl-c PATRICIA ([facility]) ID Date Data Source [id number] 06/12/2020 09:10:00 AM EST PATRICIA ([facility]) Name Value Range Interpretation Code Description Data Quita rce(s) Supporting Document(s) glucose, fasting 84 mg/dL 70-100 Glucose, Fasting AT [facility] ([facility]) blood urea nitrogen 17 mg/dL 7-18 Blood Urea Nitro gen PATRICIA ([facility]) glomerular filtration rate > 60.0 >60 Glomerula r Filtration Rate PATRICIA ([facility]) creatinine for GFR 1.01 mg/dL 0.70-1.30 Creatinine for GF R PATRICIA ([facility]) sodium level 137 mEq/L 136-145 Sodium Level PATRICIA ([facility]) potassium serum 4.4 mEq/L 3.5-5.1 Potassium Serum ATHE NA ([facility]) chloride level 104 mEq/L 98-107 Chloride Level PATRICIA ([facility]) carbon dioxide level 26 mEq/L 21-32 Carbon Dioxide Level PATRICIA ([facility]) calcium level 9.7 mg/dL 8.5-10.1 Calcium Level PATRICIA ( [facility]) anion gap 7 mEq/L 8-16 Below low normal Anion Gap PATRICIA ( [facility]) AST/SGOT 22 U/L 7-37 AST/SGOT PATRICIA ([facility]) bilirubin,total 0.4 mg/dL 0.2-1.0 Bilirubin,total ATHE ([facility]) alkaline phosphatase 82 U/L 45-117 Alkaline Phosph atase PATRICIA ([facility]) ALT/SGPT 36 U/L 12-78 ALT/SGPT PATRICIA ([facility]) total protein 7.5 gm/dL 6.4-8.2 Total Protein PATRICIA ( [facility]) albumin/globulin ratio Albumin/globu vlad Ratio PATRICIA ([facility]) albumin 4.1 gm/dL 3.2-5.2 Albumin PATRICIA ([facility]) ID Date Data Source [id number] 05/15/2020 03:13:57 PM EST [facility] Name Value Range Interpretation Code Description Data Quita rce(s) Supporting Document(s) Progress Note [facility] [id number]/JNIhhBRFyc3OkHBirIQb4SLkmKOKtQ1MuQES1yF5hYVA3MNtKLfYlLaYqFvU2 lbm [file] ICAgICAgICAgICAgICAgICAgICAgICAgICAgICAgIC AdJCFiGRDfBQDjJLPtTJAfKVAbVYYxCKNzEQMmNNGlUPPmIIJoUVXyWNPyPBWhQNCnASMwUPZuCC5IPQ AgICAgICAgICAgICAgICAgICAgICAgICAgICAgICAgICAgICAgICAgICAgICAgICAgICAgICAgICAgIC AgICAgICAgICAgICAgICAgICAgICAgICAgICAgICAg BTGnERUbNT3RROZtEOXrQIUfOWLnDEVqIGDaUASdVQMqKFXrHTAoBKCgHUQpXEUwSICpYHAyHDTxZCUm CQCgYXHjFFPlQSOoCXZaEXKlPBRcATZwMZIjLMPaZXStZRBzDMExACPgUCNpZVWvYV7GRKKnBOPbSMIr ICAgICAgICAgICAgICAgICAgICAgICAgICAgICAgIC AgICAgICAgICAgICAgICAgICAgICAgICAgICAgICAgICAgICAgICAgICAgICAgICAgICAgICAgICAgIA 0KICAgICAgICAgICAgICAgICAgICAgICAgICAgICAgICAgICAgICAgICAgICAgICAgICAgICAgICAgIC AgICAgICAgICAgICAgICAgICAgICAgICAgICAgICAg UCWgHRCtEOCjFL5UASHgVQCaBTDbDMTjMMWfZGUoWACnVXAeHMRyRCHrYSLdJMDwCHYnBZZoMTNeHHYm QZVlMXQeDNAuYVPxTLOqBNEmRDKnIDBiCIGcRIYbVYVtBVDtBDIsJDVgIRMaNHLbZTSyXY8FPCHeOQUu ICAgICAgICAgICAgICAgICAgICAgICAgICAgICAgIC AgICAgICAgICAgICAgICAgICAgICAgICAgICAgICAgICAgICAgICAgICAgICAgICAgICAgICAgICAgIC SlCV7MGPIoNNRzSXAxOZSfBBKkMNYvOMLgVRGnKYSwPJRtOKArKUPoJGAxYCUtNFYrGZCyFRJcNOUzGR AgICAgICAgICAgICAgICAgICAgICAgICAgICAgICAg SGElMAAuRPSmKOJqGF4GGCXuZNTsYPHbJYMxSXTmDDMxCMQmDETnRKDhMMYdGVToQNCoEPPeFCCsGUVj EVZsFTRjHGRaSLZnZGEeLVVjTWXyLLKgRTVwDVTsZLToDVKsMGVlOCPzXNKnLRHtVKCrYKMlCB0KKW91 wWBzw4R4LEBdSQ2ojlv/Eh2BLOdkohVnxXWxDV0IOq VaZK5txn0BVsNmEP3pjc2JQJkZRpXfA6U9qLZxCVMoWEPNGtGfW94cHJkiUi37HPmiQKJpSxIeLKu8Zc 2VPuOrA1aeCEHjDkY4IRNgErD7VOMwFwB7WYYwXiPrEApzPA5Eo7JvaNWbVSd+Xz8EVQ6dx1TqXXidQw QdKB2vxh5HVAnQVuSoT3PcaaI0TUA2ASKdMs4UAEXh GLCafRUjEyIrXYSBIwEeT1PkmI75OOYZOu1+HFqewoKrQleRGaG7PRJjs9KjONr2DJ5BPMScQQi4dFOp FHPlC4Eti5UmFq13YLMqCzwhFB3jlHLafBZQuVckdDP3q1x5LAOMENOzrCVzJjstAwEwAZBjAwrlIJCF NMpCPuKcK1Eqv5ZgPlT1ATLnTdVxEDfmFVNvQfI7XN 70cOmwZI5KTMCkVOKlKR88TRE3QFYdQz4RSa8KPxDkSJ1mct7DEveuKNOmNqgTPjx9BVduPI0SaRYfO4 LnxPCla0mHLvAeQ7INFTU4YYPbRy7THHDhGiDaBPSoFXnfMB3vJKLdTAUZyXqkknL8OI8ATP2mjyZsKJ 4YCrAqSl0eUp8GOiNmI4QiK9EsYOZdJPPISSzhKX9J DWugOS3xGQ8Is8SUtHDzuA9ncb4EGGHgSIWiAyngtb5SHolfU5R6gZczJVWaZkBoFOHBAQjmFC8YDUEq XIP7HYNlZJIcMTYBMkHxC35vBM5VT9Vka10gMuJ3TRCrEaOeEBzmYO41uEatxxBzlMNcgIpfQR2MCg2+ DQplbmRvYmoNCnhyZWYNCjAgMjkNCjAwMDAwMDAwMD EeAbU7GrTbTw1ZRLWwTKUuHSBaWxNrZPDgWTMuBOgtKNLuMBW3Twm7ZOLiYKRtYI9JCjPuUMArVlD3Oo YeSKWzPPZijz6YQEYiPOJeFCQ0XkEaUXInAVQhWHytWTEdFAZbTSS7AUHnRCRbEQ3CItPsWDJgMRUlTo FrOGHpFJNlgl1EMQLjMLWcAmD1MnNiUVUyYHSrGGfw KFRwPYU7TnShVXOoCVZnEO3GDcWeLVSzFKfsQCmxEDHuTBUgud1DPKAoLNFdZUIvErDrPENrNXZdHCbm YWDaCLM4ZjOiZTCnFRQoCC2EArOrXJTiQBn1GYzlFUGiNTFxlb5EUZFeMSUhCBh2FeDuFLYgFQHbMBfv ERFnBPZgKjSiNEKoHVFnVI0MMnQyGFUeCMF8UTXjOO NtOBJudm6HRPYgSZSkNJB3IGFqCGXpHZRwPTibYHHwDFZlQFWoLIFeKVSfUR0MHoAfMDVvXqN9CLYsUV ZnDLFyru9VQNRbUUGvJiM8DHDsTUHaHOGoPOyeBRNlNKMzPtG5LRQlNSTbYC1WQpByCZGtKbL5PLXcFF UoQIYjti9JLAWfPXDyLJX9XKLmCNWsQXYcEAvpBHJk LQQ4ANb1CCYoQYOhTM5JHfBrDYHaRlG5DjFvDKPnGSHsdx6TGXTbZUXcOLT7LEEgSRVuEDOeGVzkJIAk KRU3NxXaTYKdNTTiOT3MWcBhARTgAhO4JCAwFCDdSWImcg7NXKRcYFNpJia7EqFpOJJjQNRmWSe0tuYd tELfZOo0BN1KC2CxhgXgEolFDf8Ql631CYS7JERzZx 9DL5uuGj1pNDIsAEYLMp1VFXq3CaYlFeLzPLSmWFJ8URJ6OTA3M0Q8BRQ4DBN0ImP4DTe+FZd7LwI5Z1 K2BdBrRxneSJC3ZFotTob0WmWqIuIlPvt2MZ9nZQXBHt7+QQlkaSGldVutJVIEAbB7CIa2CYmrPQSDSr 0K ID Date Data Source [id number] 04/27/2020 02:10:00 PM EST BENEDICT ([facility]) Name Value Range Interpretation Code Description Data Quita rce(s) Supporting Document(s) testosterone 397 NG/dL [id number] Testosterone PATRICIA ([facility]) ID Date Data Source [id number] 04/27/2020 02:10:00 PM EST BENEDICT ([facility]) Name Value Range Interpretation Code Description Data Quita rce(s) Supporting Document(s) glucose, fasting 76 mg/dL 70-100 Glucose, Fasting AT [facility] ([facility]) creatinine for GFR 1.06 mg/dL 0.70-1.30 Creatinine for GF R BENEDICT ([facility]) blood urea nitrogen 13 mg/dL 7-18 Blood Urea Nitro gen BENEDICT ([facility]) glomerular filtration rate > 60.0 >60 Glomerula r Filtration Rate PATRICIA ([facility]) sodium level 140 mEq/L 136-145 Sodium Level BENEDICT ([facility]) carbon dioxide level 25 mEq/L 21-32 Carbon Dioxide Level BENEDICT ([facility]) potassium serum 3.9 mEq/L 3.5-5.1 Potassium Serum ATHE NA ([facility]) chloride level 104 mEq/L 98-107 Chloride Level PATRICIA ([facility]) anion gap 11 mEq/L 8-16 Anion Gap PATRICIA ([facility]) ALT/SGPT 36 U/L 12-78 ALT/SGPT PATRICIA ([facility]) calcium level 9.5 mg/dL 8.5-10.1 Calcium Level PATRICIA ( [facility]) AST/SGOT 18 U/L 7-37 AST/SGOT PATRICIA ([facility]) bilirubin,total 0.7 mg/dL 0.2-1.0 Bilirubin,total ATHE NA ([facility]) alkaline phosphatase 70 U/L 45-117 Alkaline Phosph atase PATRICIA ([facility]) total protein 7.1 gm/dL 6.4-8.2 Total Protein [facility]ICIA ( [facility] [facility] albumin 4.1 gm/dL 3.2-5.2 Albumin PATRICIA ([facility]) albumin/globulin ratio Albumin/globu vlad Ratio PATRICIA ([facility]) ID Date Data Source [id number] 04/27/2020 02:10:00 PM EST PATRICIA ([facility]) Name Value Range Interpretation Code Description Data Quita rce(s) Supporting Document(s) estradiol 33.0 pg/mL <39.8 Estradiol PATRICIA ([facility]) ID Date Data Source [id number] 04/27/2020 02:10:00 PM EST PATRICIA ([facility]) Name Value Range Interpretation Code Description Data Quita rce(s) Supporting Document(s) testosterone 397 NG/dL [phone] Testosterone PATRICIA ([facility]) ID Date Data Source [id number] 04/27/2020 02:10:00 PM EST PATRICIA ([facility]) Name Value Range Interpretation Code Description Data Quita rce(s) Supporting Document(s) blood urea nitrogen 13 mg/dL 7-18 Blood Urea Nitro gen PATRICIA ([facility]) glucose, fasting 76 mg/dL 70-100 Glucose, Fasting AT [facility] ([facility]) glomerular filtration rate > 60.0 >60 Glomerula r Filtration Rate PATRICIA ([facility]) creatinine for GFR 1.06 mg/dL 0.70-1.30 Creatinine for GF R PATRICIA ([facility]) sodium level 140 mEq/L 136-145 Sodium Level PATRICIA (No [facility]) chloride level 104 mEq/L 98-107 Chloride Level PATRICIA ([facility]) carbon dioxide level 25 mEq/L 21-32 Carbon Dioxide Level PATRICIA ([facility]) potassium serum 3.9 mEq/L 3.5-5.1 Potassium Serum ATHE ([facility]) anion gap 11 mEq/L 8-16 Anion Gap BENEDICT ([facility]) calcium level 9.5 mg/dL 8.5-10.1 Calcium Level PATRICIA ( [facility]) AST/SGOT 18 U/L 7-37 AST/SGOT PATRICIA ([facility]) alkaline phosphatase 70 U/L 45-117 Alkaline Phosph atase PATRICIA ([facility]) ALT/SGPT 36 U/L 12-78 ALT/SGPT PATRICIA ([facility]) bilirubin,total 0.7 mg/dL 0.2-1.0 Bilirubin,total ATHE ([facility]) total protein 7.1 gm/dL 6.4-8.2 Total Protein PATRICIA ( [facility]) albumin 4.1 gm/dL 3.2-5.2 Albumin PATRICIA ([facility]) albumin/globulin ratio Albumin/globu vlad Ratio BENEDICT ([facility]) ID Date Data Source [id number] 04/27/2020 02:10:00 PM EST PATRICIA ([facility]) Name Value Range Interpretation Code Description Data Quita rce(s) Supporting Document(s) estradiol 33.0 pg/mL <39.8 Estradiol PATRICIA ([facility]) ID Date Data Source [id number] 04/27/2020 02:10:00 PM EST PATRICIA ([facility]) Name Value Range Interpretation Code Description Data Quita rce(s) Supporting Document(s) testosterone 397 NG/dL 241-827 Testosterone PATRICIA ([facility]) ID Date Data Source [id number] 04/27/2020 02:10:00 PM EST PATRICIA ([facility]) Name Value Range Interpretation Code Description Data Quita rce(s) Supporting Document(s) glucose, fasting 76 mg/dL 70-100 Glucose, Fasting AT [facility] ([facility]) creatinine for GFR 1.06 mg/dL 0.70-1.30 Creatinine for GF R PATRICIA ([facility]) blood urea nitrogen 13 mg/dL 7-18 Blood Urea Nitro gen PATRICIA ([facility]) potassium serum 3.9 mEq/L 3.5-5.1 Potassium Serum ATHE ([facility]) sodium level 140 mEq/L 136-145 Sodium Level PATRICIA ([facility]) glomerular filtration rate > 60.0 >60 Glomerula r Filtration Rate PATRICIA ([facility]) chloride level 104 mEq/L 98-107 Chloride Level BENEDICT ([facility]) calcium level 9.5 mg/dL 8.5-10.1 Calcium Level PATRICIA ( [facility]) carbon dioxide level 25 mEq/L 21-32 Carbon Dioxide Level PATRICIA ([facility]) anion gap 11 mEq/L 8-16 Anion Gap PATRICIA ([facility]) ALT/SGPT 36 U/L 12-78 ALT/SGPT PATRICIA ([facility]) alkaline phosphatase 70 U/L 45-117 Alkaline Phosph atase PATRICIA ([facility]) AST/SGOT 18 U/L 7-37 AST/SGOT PATRICIA ([facility]) albumin/globulin ratio Albumin/globu vlad Ratio PATRICIA ([facility]) bilirubin,total 0.7 mg/dL 0.2-1.0 Bilirubin,total ATHE NA ([facility]) albumin 4.1 gm/dL 3.2-5.2 Albumin PATRICIA ([facility]) total protein 7.1 gm/dL 6.4-8.2 Total Protein PATRICIA ( [facility]) ID Date Data Source [id number] 04/27/2020 02:10:00 PM EST PATRICIA ([facility]) Name Value Range Interpretation Code Description Data Quita rce(s) Supporting Document(s) estradiol 33.0 pg/mL <39.8 Estradiol PATRICIA ([facility]) ID Date Data Source [id number] 04/27/2020 02:10:00 PM EST PATRICIA ([facility]) Name Value Range Interpretation Code Description Data Quita rce(s) Supporting Document(s) testosterone 397 NG/dL 241-827 Testosterone PATRICIA ([facility]) ID Date Data Source [id number] 04/27/2020 02:10:00 PM EST PATRICIA ([facility]) Name Value Range Interpretation Code Description Data Quita rce(s) Supporting Document(s) creatinine for GFR 1.06 mg/dL 0.70-1.30 Creatinine for GF R PATRICIA ([facility]) glucose, fasting 76 mg/dL 70-100 Glucose, Fasting AT [facility] ([facility]) blood urea nitrogen 13 mg/dL 7-18 Blood Urea Nitro gen PATRICIA ([facility]) chloride level 104 mEq/L 98-107 Chloride Level PATRICIA ([facility]) glomerular filtration rate > 60.0 >60 Glomerula r Filtration Rate PATRICIA ([facility]) sodium level 140 mEq/L 136-145 Sodium Level PATRICIA ([facility]) potassium serum 3.9 mEq/L 3.5-5.1 Potassium Serum ATHE NA ([facility]) AST/SGOT 18 U/L 7-37 AST/SGOT PATRICIA ([facility]) calcium level 9.5 mg/dL 8.5-10.1 Calcium Level PATRICIA ( [facility]) carbon dioxide level 25 mEq/L 21-32 Carbon Dioxide Level PATRICIA ([facility]) anion gap 11 mEq/L 8-16 Anion Gap PATRICIA ([facility]) ALT/SGPT 36 U/L 12-78 ALT/SGPT PATRICIA ([facility]) bilirubin,total 0.7 mg/dL 0.2-1.0 Bilirubin,total ATHE NA ([facility]) total protein 7.1 gm/dL 6.4-8.2 Total Protein PATRICIA ( [facility]) alkaline phosphatase 70 U/L 45-117 Alkaline Phosph atase PATRICIA ([facility]) albumin/globulin ratio Albumin/globu vlad Ratio PATRICIA ([facility]) albumin 4.1 gm/dL 3.2-5.2 Albumin PATRICIA ([facility]) ID Date Data Source [id number] 04/27/2020 02:10:00 PM EST PATRICIA ([facility]) Name Value Range Interpretation Code Description Data Qutia rce(s) Supporting Document(s) estradiol 33.0 pg/mL <39.8 Estradiol PATRICIA ([facility]) ID Date Data Source [id number] 04/27/2020 02:10:00 PM EST PATRICIA ([facility]) Name Value Range Interpretation Code Description Data Quita rce(s) Supporting Document(s) testosterone 397 NG/dL 241-827 Testosterone PATRICIA (No [facility]) ID Date Data Source [id number] 04/27/2020 02:10:00 PM EST PATRICIA ([facility]) Name Value Range Interpretation Code Description Data Quita rce(s) Supporting Document(s) blood urea nitrogen 13 mg/dL 7-18 Blood Urea Nitro gen PATRICIA ([facility]) glucose, fasting 76 mg/dL 70-100 Glucose, Fasting AT [facility] ([facility]) glomerular filtration rate > 60.0 >60 Glomerula r Filtration Rate PATRICIA ([facility]) sodium level 140 mEq/L 136-145 Sodium Level PATRICIA ([facility]) potassium serum 3.9 mEq/L 3.5-5.1 Potassium Serum ATHE NA ([facility]) creatinine for GFR 1.06 mg/dL 0.70-1.30 Creatinine for GF R PATRICIA ([facility]) chloride level 104 mEq/L 98-107 Chloride Level PATRICIA ([facility]) anion gap 11 mEq/L 8-16 Anion Gap PATRICIA ([facility]) calcium level 9.5 mg/dL 8.5-10.1 Calcium Level PATRICIA ( [facility]) carbon dioxide level 25 mEq/L 21-32 Carbon Dioxide Level PATRICIA ([facility]) bilirubin,total 0.7 mg/dL 0.2-1.0 Bilirubin,total ATHE NA ([facility]) ALT/SGPT 36 U/L 12-78 ALT/SGPT PATRICIA ([facility]) AST/SGOT 18 U/L 7-37 AST/SGOT PATRICIA ([facility]) alkaline phosphatase 70 U/L 45-117 Alkaline Phosph atase PATRICIA ([facility]) total protein 7.1 gm/dL 6.4-8.2 Total Protein PATRICIA ( [facility]) albumin 4.1 gm/dL 3.2-5.2 Albumin PATRICIA ([facility]) albumin/globulin ratio Albumin/globu vlad Ratio PATRICIA ([facility]) ID Date Data Source [id number] 04/27/2020 02:10:00 PM EST PATRICIA ([facility]) Name Value Range Interpretation Code Description Data Quita rce(s) Supporting Document(s) estradiol 33.0 pg/mL <39.8 Estradiol PATRICIA ([facility]) ID Date Data Source [id number] 04/27/2020 02:10:00 PM EST PATRICIA ([facility]) Name Value Range Interpretation Code Description Data Quita rce(s) Supporting Document(s) testosterone 397 NG/dL 241-827 Testosterone PATRICIA (No [facility]) ID Date Data Source [id number] 04/27/2020 02:10:00 PM EST PATRICIA ([facility]) Name Value Range Interpretation Code Description Data Quita rce(s) Supporting Document(s) glucose, fasting 76 mg/dL 70-100 Glucose, Fasting AT [facility] ([facility]) glomerular filtration rate > 60.0 >60 Glomerula r Filtration Rate PATRICIA ([facility]) creatinine for GFR 1.06 mg/dL 0.70-1.30 Creatinine for GF R PATRICIA ([facility]) blood urea nitrogen 13 mg/dL 7-18 Blood Urea Nitro gen PATRICIA ([facility]) chloride level 104 mEq/L 98-107 Chloride Level PATRICIA ([facility]) potassium serum 3.9 mEq/L 3.5-5.1 Potassium Serum ATHE NA ([facility]) sodium level 140 mEq/L 136-145 Sodium Level PATRICIA ([facility]) anion gap 11 mEq/L 8-16 Anion Gap PATRICIA ([facility]) carbon dioxide level 25 mEq/L 21-32 Carbon Dioxide Level PATRICIA ([facility]) calcium level 9.5 mg/dL 8.5-10.1 Calcium Level PATRICIA ( [facility]) AST/SGOT 18 U/L 7-37 AST/SGOT PATRICIA ([facility]) bilirubin,total 0.7 mg/dL 0.2-1.0 Bilirubin,total ATHE NA ([facility]) alkaline phosphatase 70 U/L 45-117 Alkaline Phosph atase PATRICIA ([facility]) ALT/SGPT 36 U/L 12-78 ALT/SGPT PATRICIA ([facility]) total protein 7.1 gm/dL 6.4-8.2 Total Protein PATRICIA ( [facility]) albumin 4.1 gm/dL 3.2-5.2 Albumin PATRICIA ([facility]) albumin/globulin ratio Albumin/globu vlad Ratio PATRICIA ([facility]) ID Date Data Source [id number] 04/27/2020 02:10:00 PM EST PATRICIA ([facility]) Name Value Range Interpretation Code Description Data Quita rce(s) Supporting Document(s) estradiol 33.0 pg/mL <39.8 Estradiol PATRICIA ([facility]) ID Date Data Source [id number] 04/27/2020 02:10:00 PM EST PATRICIA ([facility]) Name Value Range Interpretation Code Description Data Quita rce(s) Supporting Document(s) testosterone 397 NG/dL 241-827 Testosterone PATRICIA ([facility]) ID Date Data Source [id number] 04/27/2020 02:10:00 PM EST PATRICIA ([facility]) Name Value Range Interpretation Code Description Data Quita rce(s) Supporting Document(s) glucose, fasting 76 mg/dL 70-100 Glucose, Fasting AT [facility]) blood urea nitrogen 13 mg/dL 7-18 Blood Urea Nitro gen BENEDICT ([facility]) creatinine for GFR 1.06 mg/dL 0.70-1.30 Creatinine for GF R PATRICIA ([facility]) glomerular filtration rate > 60.0 >60 Glomerula r Filtration Rate PATRICIA ([facility]) chloride level 104 mEq/L 98-107 Chloride Level PATRICIA ([facility]) carbon dioxide level 25 mEq/L 21-32 Carbon Dioxide Level PATRICIA ([facility]) potassium serum 3.9 mEq/L 3.5-5.1 Potassium Serum ATHE NA ([facility]) sodium level 140 mEq/L 136-145 Sodium Level PATRICIA ([facility]) AST/SGOT 18 U/L 7-37 AST/SGOT PATRICIA ([facility]) anion gap 11 mEq/L 8-16 Anion Gap PATRICIA ([facility]) calcium level 9.5 mg/dL 8.5-10.1 Calcium Level BENEDICT ( [facility]) ALT/SGPT 36 U/L 12-78 ALT/SGPT PATRICIA ([facility]) albumin 4.1 gm/dL 3.2-5.2 Albumin PATRICIA ([facility]) alkaline phosphatase 70 U/L 45-117 Alkaline Phosph atase PATRICIA ([facility]) bilirubin,total 0.7 mg/dL 0.2-1.0 Bilirubin,total ATHE NA ([facility]) total protein 7.1 gm/dL 6.4-8.2 Total Protein PATRICIA ( [facility]) albumin/globulin ratio Albumin/globu vlad Ratio PATRICIA ([facility]) ID Date Data Source [id number] 04/27/2020 02:10:00 PM EST PATRICIA ([facility]) Name Value Range Interpretation Code Description Data Quita rce(s) Supporting Document(s) estradiol 33.0 pg/mL <39.8 Estradiol PATRICIA ([facility]) ID Date Data Source [id number] 04/07/2020 07:55:00 PM EST [facility] Name Value Range Interpretation Code Description Data Quita rce(s) Supporting Document(s) SARS coronavirus 2 RNA [facility] This lab was ordered by [facility] and reported by [facility]. ID Date Data Source [id number] 02/03/2020 02:00:00 PM EDT [facility]) Name Value Range Interpretation Code Description Data Quita rce(s) Supporting Document(s) estradiol 59.1 pg/mL <39.8 Above high normal Estradiol PATRICIA ([facility]) ID Date Data Source [id number] 02/03/2020 02:00:00 PM EDT [facility]) Name Value Range Interpretation Code Description Data Quita rce(s) Supporting Document(s) testosterone 425 NG/dL 241-827 Testosterone PATRICIA ([facility]) ID Date Data Source [id number] 02/03/2020 02:00:00 PM EDT PATRICIA ([facility]) Name Value Range Interpretation Code Description Data Quita rce(s) Supporting Document(s) blood urea nitrogen 12 mg/dL 7-18 Blood Urea Nitro gen PATRICIA ([facility]) glucose, fasting 70 mg/dL 70-100 Glucose, Fasting AT [facility] ([facility]) sodium level 138 mEq/L 136-145 Sodium Level PATRICIA (No [facility]) creatinine for GFR 0.98 mg/dL 0.70-1.30 Creatinine for GF R PATRICIA ([facility]) glomerular filtration rate > 60.0 >60 Glomerula r Filtration Rate PATRICIA ([facility]) potassium serum 4.0 mEq/L 3.5-5.1 Potassium Serum ATHE NA ([facility]) chloride level 105 mEq/L 98-107 Chloride Level PATRICIA ([facility]) anion gap 4 mEq/L 8-16 Below low normal Anion Gap PATRICIA ( [facility]) carbon dioxide level 29 mEq/L 21-32 Carbon Dioxide Level PATRICIA ([facility]) calcium level 9.5 mg/dL 8.5-10.1 Calcium Level PATRICIA ( [facility]) ALT/SGPT 26 U/L 12-78 ALT/SGPT PATRICIA ([facility]) AST/SGOT 16 U/L 7-37 AST/SGOT PATRICIA ([facility]) alkaline phosphatase 71 U/L 45-117 Alkaline Phosph atase PATRICIA ([facility]) bilirubin,total 0.6 mg/dL 0.2-1.0 Bilirubin,total ATHE NA ([facility]) total protein 7.2 gm/dL 6.4-8.2 Total Protein PATRICIA ( [facility]) albumin 4.2 gm/dL 3.2-5.2 Albumin PATRICIA ([facility]) albumin/globulin ratio Albumin/globu vlad Ratio PATRICIA ([facility]) ID Date Data Source [id number] 02/03/2020 02:00:00 PM EDT PATRICIA ([facility]) Name Value Range Interpretation Code Description Data Quita rce(s) Supporting Document(s) estradiol 59.1 pg/mL <39.8 Above high normal Estradiol PATRICIA ([facility]) ID Date Data Source [id number] 02/03/2020 02:00:00 PM EDT PATRICIA ([facility]) Name Value Range Interpretation Code Description Data Quita rce(s) Supporting Document(s) testosterone 425 NG/dL 241-827 Testosterone PATRICIA ([facility]) ID Date Data Source [id number] 02/03/2020 02:00:00 PM EDT PATRICIA ([facility]) Name Value Range Interpretation Code Description Data Quita rce(s) Supporting Document(s) blood urea nitrogen 12 mg/dL 7-18 Blood Urea Nitro gen PATRICIA ([facility]) glucose, fasting 70 mg/dL 70-100 Glucose, Fasting AT [facility] ([facility]) glomerular filtration rate > 60.0 >60 Glomerula r Filtration Rate PATRICIA ([facility]) creatinine for GFR 0.98 mg/dL 0.70-1.30 Creatinine for GF R PATRICIA ([facility]) sodium level 138 mEq/L 136-145 Sodium Level PATRICIA ([facility]) potassium serum 4.0 mEq/L 3.5-5.1 Potassium Serum ATHE NA ([facility]) chloride level 105 mEq/L 98-107 Chloride Level PATRICIA ([facility]) AST/SGOT 16 U/L 7-37 AST/SGOT PATRICIA ([facility]) carbon dioxide level 29 mEq/L 21-32 Carbon Dioxide Level PATRICIA ([facility]) calcium level 9.5 mg/dL 8.5-10.1 Calcium Level BENEDICT ( [facility]) anion gap 4 mEq/L 8-16 Below low normal Anion Gap PATRICIA ( [facility]) ALT/SGPT 26 U/L 12-78 ALT/SGPT PATRICIA ([facility]) alkaline phosphatase 71 U/L 45-117 Alkaline Phosph atase PATRICIA ([facility]) albumin/globulin ratio Albumin/globu vlad Ratio PATRICIA ([facility]) total protein 7.2 gm/dL 6.4-8.2 Total Protein PATRICIA ( [facility]) albumin 4.2 gm/dL 3.2-5.2 Albumin PATRICIA ([facility]) bilirubin,total 0.6 mg/dL 0.2-1.0 Bilirubin,total ATHE NA ([facility]) ID Date Data Source [id number] 02/03/2020 02:00:00 PM EDT [facility]) Name Value Range Interpretation Code Description Data Quita rce(s) Supporting Document(s) estradiol 59.1 pg/mL <39.8 Above high normal Estradiol PATRICIA ([facility]) ID Date Data Source [id number] 02/03/2020 02:00:00 PM [facility] Name Value Range Interpretation Code Description Data Quita rce(s) Supporting Document(s) testosterone 425 NG/dL 241-827 Testosterone PATRICIA ([facility]) ID Date Data Source [id number] 02/03/2020 02:00:00 PM EDT [facility]) Name Value Range Interpretation Code Description Data Quita rce(s) Supporting Document(s) glucose, fasting 70 mg/dL 70-100 Glucose, Fasting AT [facility] ([facility]) glomerular filtration rate > 60.0 >60 Glomerula r Filtration Rate PATIRCIA ([facility]) creatinine for GFR 0.98 mg/dL 0.70-1.30 Creatinine for GF R PATRICIA ([facility]) blood urea nitrogen 12 mg/dL 7-18 Blood Urea Nitro gen PATRICIA ([facility]) chloride level 105 mEq/L 98-107 Chloride Level PATRICIA ([facility]) potassium serum 4.0 mEq/L 3.5-5.1 Potassium Serum ATHE NA ([facility]) sodium level 138 mEq/L 136-145 Sodium Level PATRICIA ([facility]) carbon dioxide level 29 mEq/L 21-32 Carbon Dioxide Level PATRICIA ([facility]) calcium level 9.5 mg/dL 8.5-10.1 Calcium Level PATRICIA ( [facility]) AST/SGOT 16 U/L 7-37 AST/SGOT PATRICIA ([facility]) alkaline phosphatase 71 U/L 45-117 Alkaline Phosph atase PATRICIA ([facility]) anion gap 4 mEq/L 8-16 Below low normal Anion Gap PATRICIA ( [facility]) ALT/SGPT 26 U/L 12-78 ALT/SGPT PATRICIA ([facility]) bilirubin,total 0.6 mg/dL 0.2-1.0 Bilirubin,total ATHE NA ([facility]) total protein 7.2 gm/dL 6.4-8.2 Total Protein PATRICIA ( [facility]) albumin 4.2 gm/dL 3.2-5.2 Albumin PATRICIA ([facility]) albumin/globulin ratio Albumin/globu vlad Ratio PATRICIA ([facility]) ID Date Data Source [id number] 02/03/2020 02:00:00 PM EDT PATRICIA ([facility]) Name Value Range Interpretation Code Description Data Quita rce(s) Supporting Document(s) estradiol 59.1 pg/mL <39.8 Above high normal Estradiol PATRICIA ([facility]) ID Date Data Source [id number] 02/03/2020 02:00:00 PM EDT PATRICIA ([facility]) Name Value Range Interpretation Code Description Data Quita rce(s) Supporting Document(s) testosterone 425 NG/dL 241-827 Testosterone PATRICIA ([facility]) ID Date Data Source [id number] 02/03/2020 02:00:00 PM EDT PATRICIA ([facility]) Name Value Range Interpretation Code Description Data Quita rce(s) Supporting Document(s) creatinine for GFR 0.98 mg/dL 0.70-1.30 Creatinine for GF R PATRICIA ([facility]) glucose, fasting 70 mg/dL 70-100 Glucose, Fasting AT [facility] ([facility]) blood urea nitrogen 12 mg/dL 7-18 Blood Urea Nitro gen PATRICIA ([facility]) glomerular filtration rate > 60.0 >60 Glomerula r Filtration Rate PATRICIA ([facility]) sodium level 138 mEq/L 136-145 Sodium Level PATRICIA (No [facility]) potassium serum 4.0 mEq/L 3.5-5.1 Potassium Serum ATHE ([facility]) chloride level 105 mEq/L 98-107 Chloride Level BENEDICT ([facility]) carbon dioxide level 29 mEq/L 21-32 Carbon Dioxide Level PATRICIA ([facility]) ALT/SGPT 26 U/L 12-78 ALT/SGPT PATRICIA ([facility]) alkaline phosphatase 71 U/L 45-117 Alkaline Phosph atase PATRICIA ([facility]) anion gap 4 mEq/L 8-16 Below low normal Anion Gap PATRICIA ( [facility]) AST/SGOT 16 U/L 7-37 AST/SGOT PATRICIA ([facility]) calcium level 9.5 mg/dL 8.5-10.1 Calcium Level PATRICIA ( [facility]) bilirubin,total 0.6 mg/dL 0.2-1.0 Bilirubin,total ATHE ([facility]) albumin/globulin ratio Albumin/globu vlad Ratio PATRICIA ([facility]) albumin 4.2 gm/dL 3.2-5.2 Albumin PATRICIA ([facility]) total protein 7.2 gm/dL 6.4-8.2 Total Protein PATRICIA ( [facility]) ID Date Data Source [id number] 02/03/2020 02:00:00 PM EDT PATRICIA ([facility]) Name Value Range Interpretation Code Description Data Quita rce(s) Supporting Document(s) estradiol 59.1 pg/mL <39.8 Above high normal Estradiol PATRICIA ([facility]) ID Date Data Source [id number] 02/03/2020 02:00:00 PM EDT PATRICIA ([facility]) Name Value Range Interpretation Code Description Data Quita rce(s) Supporting Document(s) testosterone 425 NG/dL 241-827 Testosterone PATRICIA ([facility]) ID Date Data Source [id number] 02/03/2020 02:00:00 PM EDT PATRICIA ([facility]) Name Value Range Interpretation Code Description Data Quita rce(s) Supporting Document(s) blood urea nitrogen 12 mg/dL 7-18 Blood Urea Nitro gen PATRICIA ([facility]) glucose, fasting 70 mg/dL 70-100 Glucose, Fasting AT [facility] ([facility]) creatinine for GFR 0.98 mg/dL 0.70-1.30 Creatinine for GF R PATRICIA ([facility]) chloride level 105 mEq/L 98-107 Chloride Level PATRICIA ([facility]) potassium serum 4.0 mEq/L 3.5-5.1 Potassium Serum ATHE ([facility]) glomerular filtration rate > 60.0 >60 Glomerula r Filtration Rate PATRICIA ([facility]) sodium level 138 mEq/L 136-145 Sodium Level PATRICIA ([facility]) anion gap 4 mEq/L 8-16 Below low normal Anion Gap PATRICIA ( [facility]) AST/SGOT 16 U/L 7-37 AST/SGOT PATRICIA ([facility]) calcium level 9.5 mg/dL 8.5-10.1 Calcium Level PATRICIA ( [facility]) carbon dioxide level 29 mEq/L 21-32 Carbon Dioxide Level PATRICIA ([facility]) bilirubin,total 0.6 mg/dL 0.2-1.0 Bilirubin,total ATHE NA ([facility]) albumin 4.2 gm/dL 3.2-5.2 Albumin PATRICIA ([facility]) total protein 7.2 gm/dL 6.4-8.2 Total Protein PATRICIA ( [facility]) alkaline phosphatase 71 U/L 45-117 Alkaline Phosph atase PATRICIA ([facility]) ALT/SGPT 26 U/L 12-78 ALT/SGPT PATRICIA ([facility]) albumin/globulin ratio Albumin/globu vlad Ratio PATRICIA ([facility]) ID Date Data Source [id number] 02/03/2020 02:00:00 PM EDT PATRICIA ([facility]) Name Value Range Interpretation Code Description Data Quita rce(s) Supporting Document(s) estradiol 59.1 pg/mL <39.8 Above high normal Estradiol PATRICIA ([facility]) ID Date Data Source [id number] 02/03/2020 02:00:00 PM EDT PATRICIA ([facility]) Name Value Range Interpretation Code Description Data Quita rce(s) Supporting Document(s) testosterone 425 NG/dL 241-827 Testosterone PATRICIA ([facility]) ID Date Data Source [id number] 02/03/2020 02:00:00 PM EDT PATRICIA ([facility]) Name Value Range Interpretation Code Description Data Quita rce(s) Supporting Document(s) blood urea nitrogen 12 mg/dL 7-18 Blood Urea Nitro gen PATRICIA ([facility]) glucose, fasting 70 mg/dL 70-100 Glucose, Fasting AT [facility] ([facility]) glomerular filtration rate > 60.0 >60 Glomerula r Filtration Rate PATRICIA ([facility]) chloride level 105 mEq/L 98-107 Chloride Level PATRICIA ([facility]) creatinine for GFR 0.98 mg/dL 0.70-1.30 Creatinine for GF R PATRICIA ([facility]) sodium level 138 mEq/L 136-145 Sodium Level PATRICIA ([facility]) potassium serum 4.0 mEq/L 3.5-5.1 Potassium Serum ATHE NA ([facility]) anion gap 4 mEq/L 8-16 Below low normal Anion Gap PATRICIA ( [facility]) AST/SGOT 16 U/L 7-37 AST/SGOT PATRICIA ([facility]) carbon dioxide level 29 mEq/L 21-32 Carbon Dioxide Level PATRICIA ([facility]) calcium level 9.5 mg/dL 8.5-10.1 Calcium Level PATRICIA ( [facility]) alkaline phosphatase 71 U/L 45-117 Alkaline Phosph atase PATRICIA ([facility]) ALT/SGPT 26 U/L 12-78 ALT/SGPT PATRICIA ([facility]) total protein 7.2 gm/dL 6.4-8.2 Total Protein PATRICIA ( [facility]) albumin 4.2 gm/dL 3.2-5.2 Albumin PATRICIA ([facility]) bilirubin,total 0.6 mg/dL 0.2-1.0 Bilirubin,total ATHE ([facility]) albumin/globulin ratio Albumin/globu vlad Ratio PATRICIA ([facility]) ID Date Data Source [id number] 02/03/2020 02:00:00 PM EDT PATRICIA ([facility]) Name Value Range Interpretation Code Description Data Quita rce(s) Supporting Document(s) estradiol 59.1 pg/mL <39.8 Above high normal Estradiol PATRICIA ([facility]) ID Date Data Source [id number] 02/03/2020 02:00:00 PM EDT PATRICIA ([facility]) Name Value Range Interpretation Code Description Data Quita rce(s) Supporting Document(s) testosterone 425 NG/dL 241-827 Testosterone PATRICIA ([facility]) ID Date Data Source [id number] 02/03/2020 02:00:00 PM EDT PATRICIA ([facility]) Name Value Range Interpretation Code Description Data Quita rce(s) Supporting Document(s) glucose, fasting 70 mg/dL 70-100 Glucose, Fasting AT [facility] ([facility]) blood urea nitrogen 12 mg/dL 7-18 Blood Urea Nitro gen PATRICIA ([facility]) glomerular filtration rate > 60.0 >60 Glomerula r Filtration Rate PATRICIA ([facility]) sodium level 138 mEq/L 136-145 Sodium Level PATRICIA (No [facility]) creatinine for GFR 0.98 mg/dL 0.70-1.30 Creatinine for GF R PATRICIA ([facility]) chloride level 105 mEq/L 98-107 Chloride Level PATRICIA ([facility]) calcium level 9.5 mg/dL 8.5-10.1 Calcium Level PATRICIA ( [facility]) carbon dioxide level 29 mEq/L 21-32 Carbon Dioxide Level PATRICIA ([facility]) potassium serum 4.0 mEq/L 3.5-5.1 Potassium Serum ATHE ([facility]) anion gap 4 mEq/L 8-16 Below low normal Anion Gap PATRICIA ( [facility]) alkaline phosphatase 71 U/L 45-117 Alkaline Phosph atase PATRICIA ([facility]) bilirubin,total 0.6 mg/dL 0.2-1.0 Bilirubin,total ATHE ([facility]) AST/SGOT 16 U/L 7-37 AST/SGOT PATRICIA ([facility]) ALT/SGPT 26 U/L 12-78 ALT/SGPT PATRICIA ([facility]) albumin 4.2 gm/dL 3.2-5.2 Albumin PTARICIA ([facility]) albumin/globulin ratio Albumin/globu vlad Ratio PATRICIA ([facility]) total protein 7.2 gm/dL 6.4-8.2 Total Protein PATRICIA ( [facility]) ID Date Data Source [id number] 02/03/2020 02:00:00 PM EDT PATRICIA ([facility]) Name Value Range Interpretation Code Description Data Quita rce(s) Supporting Document(s) estradiol 59.1 pg/mL <39.8 Above high normal Estradiol PATRICIA ([facility]) ID Date Data Source [id number] 02/03/2020 02:00:00 PM EDT PATRICIA ([facility]) Name Value Range Interpretation Code Description Data Quita rce(s) Supporting Document(s) testosterone 425 NG/dL 241-827 Testosterone PATRICIA ([facility]) ID Date Data Source [id number] 02/03/2020 02:00:00 PM EDT PATRICIA ([facility]) Name Value Range Interpretation Code Description Data Quita rce(s) Supporting Document(s) blood urea nitrogen 12 mg/dL 7-18 Blood Urea Nitro gen PATRICIA ([facility]) glucose, fasting 70 mg/dL 70-100 Glucose, Fasting AT [facility] ([facility]) creatinine for GFR 0.98 mg/dL 0.70-1.30 Creatinine for GF R BENEDICT ([facility]) glomerular filtration rate > 60.0 >60 Glomerula r Filtration Rate PATRICIA ([facility]) sodium level 138 mEq/L 136-145 Sodium Level PATRICIA ([facility]) chloride level 105 mEq/L 98-107 Chloride Level PATRICIA ([facility]) carbon dioxide level 29 mEq/L 21-32 Carbon Dioxide Level PATRICIA ([facility]) potassium serum 4.0 mEq/L 3.5-5.1 Potassium Serum ATHE NA ([facility]) anion gap 4 mEq/L 8-16 Below low normal Anion Gap PATRICIA ( [facility]) alkaline phosphatase 71 U/L 45-117 Alkaline Phosph atase PATRICIA ([facility]) AST/SGOT 16 U/L 7-37 AST/SGOT PATRICIA ([facility]) ALT/SGPT 26 U/L 12-78 ALT/SGPT PATRICIA ([facility]) calcium level 9.5 mg/dL 8.5-10.1 Calcium Level PATRICIA ( [facility]) total protein 7.2 gm/dL 6.4-8.2 Total Protein PATRICIA ( [facility]) albumin 4.2 gm/dL 3.2-5.2 Albumin PATRICIA ([facility]) albumin/globulin ratio Albumin/globu vlad Ratio PATRICIA ([facility]) bilirubin,total 0.6 mg/dL 0.2-1.0 Bilirubin,total ATHE NA ([facility]) ID Date Data Source [id number] 02/03/2020 02:00:00 PM EDT PATRICIA ([facility]) Name Value Range Interpretation Code Description Data Quita rce(s) Supporting Document(s) estradiol 59.1 pg/mL <39.8 Above high normal Estradiol PATRICIA ([facility]) ID Date Data Source [id number] 02/03/2020 02:00:00 PM EDT PATRICIA ([facility]) Name Value Range Interpretation Code Description Data Quita rce(s) Supporting Document(s) testosterone 425 NG/dL 241-827 Testosterone PATRICIA ([facility]) ID Date Data Source [id number] 02/03/2020 02:00:00 PM EDT PATRICIA ([facility]) Name Value Range Interpretation Code Description Data Quita rce(s) Supporting Document(s) glucose, fasting 70 mg/dL 70-100 Glucose, Fasting AT [facility] ([facility]) creatinine for GFR 0.98 mg/dL 0.70-1.30 Creatinine for GF R PATRICIA ([facility]) blood urea nitrogen 12 mg/dL 7-18 Blood Urea Nitro gen PATRICIA ([facility]) potassium serum 4.0 mEq/L 3.5-5.1 Potassium Serum ATHE NA ([facility]) glomerular filtration rate > 60.0 >60 Glomerula r Filtration Rate PATRICIA ([facility]) sodium level 138 mEq/L 136-145 Sodium Level PATRICIA ([facility]) chloride level 105 mEq/L 98-107 Chloride Level PATRICIA ([facility]) ALT/SGPT 26 U/L 12-78 ALT/SGPT PATRICIA ([facility]) carbon dioxide level 29 mEq/L 21-32 Carbon Dioxide Level PATRICIA ([facility]) calcium level 9.5 mg/dL 8.5-10.1 Calcium Level PATRICIA ( [facility]) AST/SGOT 16 U/L 7-37 AST/SGOT PATRICIA ([facility]) anion gap 4 mEq/L 8-16 Below low normal Anion Gap PATRICIA ( [facility]) alkaline phosphatase 71 U/L 45-117 Alkaline Phosph atase PATRICIA ([facility]) albumin 4.2 gm/dL 3.2-5.2 Albumin PATRICIA ([facility]) bilirubin,total 0.6 mg/dL 0.2-1.0 Bilirubin,total ATHE NA ([facility]) total protein 7.2 gm/dL 6.4-8.2 Total Protein PATRICIA ( [facility]) albumin/globulin ratio Albumin/globu vlad Ratio PATRICIA ([facility]) ID Date Data Source [id number] 02/03/2020 02:00:00 PM EDT BENEDICT ([facility]) Name Value Range Interpretation Code Description Data Quita rce(s) Supporting Document(s) estradiol 59.1 pg/mL <39.8 Above high normal Estradiol PATRICIA ([facility]) ID Date Data Source [id number] 02/03/2020 02:00:00 PM EDT BENEDICT ([facility]) Name Value Range Interpretation Code Description Data Quita rce(s) Supporting Document(s) testosterone 425 NG/dL 241-827 Testosterone PATRICIA ([facility]) ID Date Data Source [id number] 02/03/2020 02:00:00 PM EDT BENEDICT ([facility]) Name Value Range Interpretation Code Description Data Quita rce(s) Supporting Document(s) glucose, fasting 70 mg/dL 70-100 Glucose, Fasting AT [facility] ([facility]) creatinine for GFR 0.98 mg/dL 0.70-1.30 Creatinine for GF R PATRICIA ([facility]) blood urea nitrogen 12 mg/dL 7-18 Blood Urea Nitro gen PATRICIA ([facility]) glomerular filtration rate > 60.0 >60 Glomerula r Filtration Rate PATRICIA ([facility]) sodium level 138 mEq/L 136-145 Sodium Level PATRICIA (No [facility]) potassium serum 4.0 mEq/L 3.5-5.1 Potassium Serum ATHE NA ([facility]) chloride level 105 mEq/L 98-107 Chloride Level PATRICIA ([facility]) carbon dioxide level 29 mEq/L 21-32 Carbon Dioxide Level PATRICIA ([facility]) calcium level 9.5 mg/dL 8.5-10.1 Calcium Level PATRICIA ( [facility]) anion gap 4 mEq/L 8-16 Below low normal Anion Gap PATRICIA ( [facility]) bilirubin,total 0.6 mg/dL 0.2-1.0 Bilirubin,total ATHE ([facility]) AST/SGOT 16 U/L 7-37 AST/SGOT PATRICIA ([facility]) ALT/SGPT 26 U/L 12-78 ALT/SGPT PATRICIA ([facility]) total protein 7.2 gm/dL 6.4-8.2 Total Protein PATRICIA ( [facility]) alkaline phosphatase 71 U/L 45-117 Alkaline Phosph atase PATRICIA ([facility]) albumin 4.2 gm/dL 3.2-5.2 Albumin PATRICIA ([facility]) albumin/globulin ratio Albumin/globu vlad Ratio PATRICIA ([facility]) ID Date Data Source [id number] 02/01/2020 02:47:59 PM EDT [facility] Current Problems: Dental caries (ICD-521 .00) (JCB36-D76.9)GENDER DYSPHORIA, ADOLESCENTS AND ADULTS (PBQ43-D44.0)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)Sore gums (ICD-523.9) (RLV56-B71.89)Dental caries (ICD-521.00) (FBZ24-V46.9)Vaccination (ICD-V05.9) (JTR70-M88)Acne vulgaris (ICD-706.1) (NFF59-Z19.0)Other allergic rhinitis (WZU43-I06.89)Other allergic rhinitis (OHT17-X63.89)Acute nasopharyngitis [common cold] (PFQ34-F16)Pruritus ani (ICD- 698.0) (ERW23-I45.0)Impacted cerumen, right ear (ICD-380.4) (ICD10- H61.21)Hyperlipidemia (ICD-272.4) (FET79-P93.5)Dental caries (ICD-521.00) (YZZ40-Y17.9)Autism (ICD-299.00) (ESO77-A85.0)DENTAL CARIES EXTENDING INTO PULP (ICD-521.03) (OWQ43-N67.63)Autistic disorder, current or active state (ICD- 021129229)UNSPECIFIED CONSTIPATION (ICD-564.00) (NYS61-J31.00)ROUTINE GENERAL MEDICAL EXAM@[facility] (ICD-V70.0) (GOP70-B61.00)ACNE VULGARIS, FACIAL (ICD-706.1) (BFW61-R25.0)SCREENING FOR LIPOID DISORDERS (ICD-V77.91) (ICD10- Z13.220)UNSPECIFIED VITAMIN D DEFICIENCY (ICD-268.9) (ONX70-J28.9)LONG-TERM (CURRENT) USE OF OTHER MEDICATIONS (ICD-V58.69)ASPERGER'S (ICD-299.80) (ICD10- F84.5)DISRUPTIVE BEHAVIOR DISORDER NOS (ICD-312.9) (GEQ51-Z19.9)ASPERGER'S DISORDER (ICD-299.80) (SKU56-K39.5)FH PSYCHIATRIC CARE (ICD-V17.0) (ICD10- Z81.8)FH HEADACHES (ICD-V19.8)FAMILY HISTORY OF GROWTH/DEVELOPMENT DISORDER (ICD-V19.8)FH THYROID PROBLEMS (ICD-V18.19) (KGS02-J03.49)FH OSTEOPOROSIS (ICD- V17.8) (QAJ37-S18.62)FH MIGRAINES (ICD-V19.8)FH HYPERTENSION (ICD-V17.49) (QOF32-M72.49)FH DEPRESSION (ICD-V17.0) (YCJ68-U55.8)FH BREAST CANCER (ICD- V16.3) (UGB92-N47.3)FAMILY HISTORY OF ASTHMA (ICD-V17.5) (CHU79-T34.5)FH OF ANXIETY (ICD-V17.0) (FYV23-L07.8)G E R D (ICD-530.81) (GEG32-K97.9)ANXIETY DISORDER (ICD-300.00) (EFV06-Z29.9)ASTHMA (ICD-493.90) (XCZ59-Z12.909)Current Medications: ESTRACE 2 MG ORAL TABLET (ESTRADIOL) One tablet by mouth every day; Route: ORALSPIRONOLACTONE 50 MG ORAL TABLET (SPIRONOLACTONE) One tablet by mouth every day; Route: ORALPAXIL 20 MG ORAL TABLET (PAROXETINE HCL) take one tab po daily; Route: ORALCETIRIZINE HCL 10 MG ORAL TABLET (CETIRIZINE HCL) One tablet by mouth every day; Route: ORALCurrent Allergies: * ENVIRONMENTAL (Critical)* CA NTELOPE (Moderate) Dental Chart: Procedures:Type - CDT Code - Description B - (D1310) Nutritional counseling for the control of dental disease (Performed by Miguel Ángel Shore DDS) B - (D0330) Panoramic film (Performed by Miguel Ángel Shore DDS) B - (D0230) Intraoral, periapical, each additional radiographic image on Tooth # 10 (Performed by Miguel Ángel Shore DDS) B - (D0220) Intraoral, periapical, first radiographic image on Tooth # 8 (Performed by Miguel Ángel Shore DDS) Treatments:Type - CDT Code - Description T - (D5211) Upper partial denture - resin base (including any conventional clasps, rests and teeth) on Tooth # 8,9,10,7 (Performed by Miguel Ángel Shore DDS) T - (D7140) Extraction, erupted tooth or exposed root (elevation and/or forceps removal) on Tooth # 10 (Performed by Miguel Ángel Shore DDS) T - (D7140) Extraction, erupted tooth or exposed root (elevation and/or forceps removal) on Tooth # 9 (Performed by Miguel Ángel Shore DDS) Chart Alert:dwayne no dental on champusProphy 1 per 6 month periodchild through age 12adult 13+next avail has an apt 11/21/2015Exam 1 per 6 month periodnext avail has an apt 11/21/2015Fl2 1 per 6 month periodthrough age 19next availBwx 4 films per 6 month periodnext avail 11/21/2015Panorex 1 every 3 yearsnext avail no historySealants every 5 yearsage 5-15Debridement and scaling okProbing not coveredAfter perio maintenance has been started all prophy's need to be billedcode #[id number] 2 times per year Chart Notes:iris (Feb 03 2020 2:12PM): Pt presents for spiritism 10-15 min late to "her" appointment.CC: " I am not happy with the look of my front teeth"Explained to pt. that we have covered treatment plans a few times before regarding his anterior teeth, and that "she" has not followed up on any of the atreatment plans or shown interest in having anterior teeth restored or replaced.RM (-) per pt. Noted that pt is going through gender transiton and would like to be called "her" at pervious visit pt requested to be called "they".Allergies; NKDAPA taken-Dexis #8 and #10, Pano also taken Exam reveals: carris on teeeth #8,9,10.Anatomical crowns on #8,9,10 are all broken and missing. Very poor oral hygine, advised that if pt does not start taking care of her teeth they will all eventually be in poor health like the anterior teeth.Plan: advised pt that she had options to treat anterior teeth ( which have been explained previously), also advised pt that a pre- authorization would need to be sent to insurance to check coverage and if insurance does not cover these options she is responsiable for payment. 1) leave teeth they way they are2) crowns and crown lenthing completed3) implants and bridge4) extractions and no teeth replacment5) extractions and a partial denture* Options were disscussed with patient and patients mom being present, pt would like to have #8,9,10 teeth extracted at this time and have a partical denture made. Advised pt that there is a waiting list for expanded services and a per-auth from insurance will need to be completed. Cleaning and spiritism appointments sceduled at this time.Additional PPE requirements due to COVID-19 in the dental setting, N95, surgical mask, hair covering, gown Pt was cooperative.NV: cleaning or restorationsMiguel Ángel Shore DDS by iris (02/03/2020 2:12 PM): Tooth Notes and Watches:- Tooth 12 Watch: MesialBhavana Altamirano by radha (05/18/2015 12:54 PM): - Tooth 15 Watch: BuccalBhavana Altamirano by radha (05/18/2015 12:57 PM): - Tooth 2 Watch: Bhavana Bains by radha (05/18/2015 12:55 PM): Assessment & Plan Problems:Added: Dental caries (ICD-521.00) (ZAH36-J44.9)Medications:ESTRACE 2 MG ORAL TABLETSPIRONOLACTONE 50 MG ORAL TABLETPAXIL 20 MG ORAL TABLETCETIRIZINE HCL 10 MG ORAL TABLETAllergies:* ENVIRONMENTAL (Critical)* CANTELOPE (Moderate)E lectronically signed by Miguel Ángel Shore DDS on 02/03/2020 at 2:35 PM Name Value Range Interpretation Code Description Data Quita rce(s) Supporting Document(s) Procedure Social History Code Duration Value Status Description Data Source(s ) Alcohol intake 05/15/2020 12:00:00 AM EST Current drinker of al cohol (finding) completed Current drinker of alcohol (finding) [facility] Tobacco use and exposure 05/15/2020 12:00:00 AM EST Never used co mpleted Never used [facility] Smoking 05/15/2020 12:00:00 AM EST Never smoker completed Never s [facility] Vital Signs ID Date Data Source [id number] Name Value Range Interpretation Code Description Data Source(s) Diastolic blood pressure 64 mm[Hg] 64 mm[Hg] PATRICIA ([facility]) Body height 72 [in_i] 72 [in_i] PATRICIA ([facility]) Body mass index (BMI) [Ratio] 29.5 kg/m2 29.5 k g/m2 PATRICIA ([facility]) Systolic blood pressure 115 mm[Hg] 115 mm[Hg] A BULMARO ([facility]) Body weight 3476 [oz_av] 3476 [oz_av] PATRICIA ([facility]) Diastolic blood pressure 69 mm[Hg] 69 mm[Hg] PATRICIA ([facility]) Body height 72 [in_i] 72 [in_i] PATRICIA ([facility]) Body mass index (BMI) [Ratio] 29.2 kg/m2 29.2 k g/m2 PATRICIA ([facility]) Systolic blood pressure 104 mm[Hg] 104 mm[Hg] A BULMARO ([facility]) Body weight 3448 [oz_av] 3448 [oz_av] PATRICIA ([facility]) Diastolic blood pressure 69 mm[Hg] 69 mm[Hg] PATRICIA ([facility]) Body height 72 [in_i] 72 [in_i] PATRICIA ([facility]) Body mass index (BMI) [Ratio] 29.2 kg/m2 29.2 k g/m2 PATRICIA ([facility]) Systolic blood pressure 104 mm[Hg] 104 mm[Hg] A BULMARO ([facility]) Body weight 3448 [oz_av] 3448 [oz_av] PATRICIA ([facility]) Systolic blood pressure 140 mm[Hg] 140 mm[Hg] M MARINA ([facility], ) Diastolic blood pressure 82 mm[Hg] 82 mm[Hg] MEDENT ([facility], ) Body height 72 [in_i] 72 [in_i] MEDBENNETT ([facility], ) 6'0" Body weight 212.00 [lb_av] 212.00 [lb_av] MEDEN T ([facility], ) Body mass index (BMI) [Ratio] 28.7 kg/m2 28.7 k g/m2 MEDBENNETT ([facility], ) [place] body weight 178 [lb_av] 178 [lb_av] MEDEN T ([facility], ) Body weight 96.163 kg 96.163 kg MEDENT ([facility], ) Body surface area Derived from formula 2.18 m2 2.18 m2 MEDBENNETT ([facility], ) Diastolic blood pressure 71 mm[Hg] 71 mm[Hg] PATRICIA ([facility]) Body height 72 [in_i] 72 [in_i] PATRICIA ([facility]) Body mass index (BMI) [Ratio] 29.6 kg/m2 29.6 k g/m2 PATRICIA ([facility]) Systolic blood pressure 128 mm[Hg] 128 mm[Hg] A [facility] ([facility]) Body weight 3492 [oz_av] 3492 [oz_av] PATRICIA ([facility]) Diastolic blood pressure 71 mm[Hg] 71 mm[Hg] PATRICIA ([facility]) Body height 72 [in_i] 72 [in_i] PATRICIA ([facility]) Body mass index (BMI) [Ratio] 29.6 kg/m2 29.6 k g/m2 PATRICIA ([facility]) Systolic blood pressure 128 mm[Hg] 128 mm[Hg] [facility] Body weight 3492 [oz_av] 3492 [oz_av] PATRICIA ([facility]) Diastolic blood pressure 80 mm[Hg] 80 mm[Hg] PATRICIA ([facility]) Body height 72 [in_i] 72 [in_i] PATRICIA ([facility]) Body mass index (BMI) [Ratio] 29 kg/m2 29 kg/ m2 PATRICIA ([facility]) Systolic blood pressure 146 mm[Hg] 146 mm[Hg] A [facility] ([facility]) Body weight 3424 [oz_av] 3424 [oz_av] PATRICIA ([facility]) Diastolic blood pressure 80 mm[Hg] 80 mm[Hg] PATRICIA ([facility]) Body height 72 [in_i] 72 [in_i] PATRICIA ([facility]) Body mass index (BMI) [Ratio] 29 kg/m2 29 kg/ m2 PATRICIA ([facility]) Systolic blood pressure 146 mm[Hg] 146 mm[Hg] A THENA ([facility]) Body weight 3424 [oz_av] 3424 [oz_av] PATRICIA ([facility]) Diastolic blood pressure 80 mm[Hg] 80 mm[Hg] PATRICIA ([facility]) Body height 72 [in_i] 72 [in_i] PATRICIA ([facility]) Body mass index (BMI) [Ratio] 29 kg/m2 29 kg/ m2 PATRICIA ([facility]) Systolic blood pressure 146 mm[Hg] 146 mm[Hg] A THENA ([facility]) Body weight 3424 [oz_av] 3424 [oz_av] PATRICIA ([facility]) Diastolic blood pressure 74 mm[Hg] 74 mm[Hg] PATRICIA ([facility]) Diastolic blood pressure 96 mm[Hg] 96 mm[Hg] PATRICIA ([facility]) Body height 72 [in_i] 72 [in_i] PATRICIA ([facility]) Body mass index (BMI) [Ratio] 28.5 kg/m2 28.5 k g/m2 PATRICIA ([facility]) Systolic blood pressure 112 mm[Hg] 112 mm[Hg] [facility] Systolic blood pressure 192 mm[Hg] 192 mm[Hg] [facility] Body weight 3366.4 [oz_av] 3366.4 [oz_av] ATHEN A ([facility]) Diastolic blood pressure 74 mm[Hg] 74 mm[Hg] PATRICIA ([facility]) Diastolic blood pressure 96 mm[Hg] 96 mm[Hg] PATRICIA ([facility]) Body height 72 [in_i] 72 [in_i] PATRICIA ([facility]) Body mass index (BMI) [Ratio] 28.5 kg/m2 28.5 k g/m2 PATRICIA ([facility]) Systolic blood pressure 112 mm[Hg] 112 mm[Hg] A THENA ([facility]) Systolic blood pressure 192 mm[Hg] 192 mm[Hg] A THENA ([facility]) Body weight 3366.4 [oz_av] 3366.4 [oz_av] ATHEN A ([facility]) Diastolic blood pressure 74 mm[Hg] 74 mm[Hg] PATRICIA ([facility]) Diastolic blood pressure 96 mm[Hg] 96 mm[Hg] PATRICIA ([facility]) Body height 72 [in_i] 72 [in_i] PATRICIA ([facility]) Body mass index (BMI) [Ratio] 28.5 kg/m2 28.5 k g/m2 PATRICIA ([facility]) Systolic blood pressure 112 mm[Hg] 112 mm[Hg] [facility] Systolic blood pressure 192 mm[Hg] 192 mm[Hg] [facility] Body weight 3366.4 [oz_av] 3366.4 [oz_av] ATHEN A ([facility]) Diastolic blood pressure 74 mm[Hg] 74 mm[Hg] PATRICIA ([facility]) Diastolic blood pressure 96 mm[Hg] 96 mm[Hg] PATRICIA ([facility]) Body height 72 [in_i] 72 [in_i] PATRICIA ([facility]) Body mass index (BMI) [Ratio] 28.5 kg/m2 28.5 k g/m2 PTARICIA ([facility]) Systolic blood pressure 112 mm[Hg] 112 mm[Hg] A THENA ([facility]) Systolic blood pressure 192 mm[Hg] 192 mm[Hg] [facility] Body weight 3366.4 [oz_av] 3366.4 [oz_av] ATHEN A ([facility]) Diastolic blood pressure 78 mm[Hg] 78 mm[Hg] PATRICIA ([facility]) Body height 72 [in_i] 72 [in_i] PATRICIA ([facility]) Body mass index (BMI) [Ratio] 28.9 kg/m2 28.9 k g/m2 PATRICIA ([facility]) Systolic blood pressure 110 mm[Hg] 110 mm[Hg] A THENA ([facility]) Body weight 3412 [oz_av] 3412 [oz_av] PATRICIA ([facility]) Diastolic blood pressure 78 mm[Hg] 78 mm[Hg] PATRICIA ([facility]) Body height 72 [in_i] 72 [in_i] PATRICIA ([facility]) Body mass index (BMI) [Ratio] 28.9 kg/m2 28.9 k g/m2 PATRICIA ([facility]) Systolic blood pressure 110 mm[Hg] 110 mm[Hg] [facility] Body weight 3412 [oz_av] 3412 [oz_av] PATRICIA ([facility]) Diastolic blood pressure 78 mm[Hg] 78 mm[Hg] PATRICIA ([facility]) Body height 72 [in_i] 72 [in_i] PATRICIA ([facility]) Body mass index (BMI) [Ratio] 28.9 kg/m2 28.9 k g/m2 PATRICIA ([facility]) Systolic blood pressure 110 mm[Hg] 110 mm[Hg] A [facility] ([facility]) Body weight 3412 [oz_av] 3412 [oz_av] PATRICIA ([facility]) Diastolic blood pressure 78 mm[Hg] 78 mm[Hg] PATRICIA ([facility]) Body height 72 [in_i] 72 [in_i] PATRICIA ([facility]) Body mass index (BMI) [Ratio] 28.9 kg/m2 28.9 k g/m2 PATRICIA ([facility]) Systolic blood pressure 110 mm[Hg] 110 mm[Hg] A THENA ([facility]) Body weight 3412 [oz_av] 3412 [oz_av] PATRICIA ([facility]) Diastolic blood pressure 78 mm[Hg] 78 mm[Hg] PATRICIA ([facility]) Body height 72 [in_i] 72 [in_i] PATRICIA ([facility]) Body mass index (BMI) [Ratio] 28.9 kg/m2 28.9 k g/m2 PATRICIA ([facility]) Systolic blood pressure 110 mm[Hg] 110 mm[Hg] A [facility] ([facility]) Body weight 3412 [oz_av] 3412 [oz_av] PATRICIA ([facility]) Diastolic blood pressure 78 mm[Hg] 78 mm[Hg] PATRICIA ([facility]) Body height 72 [in_i] 72 [in_i] PATRICIA ([facility]) Body mass index (BMI) [Ratio] 28.9 kg/m2 28.9 k g/m2 PATRICIA ([facility]) Systolic blood pressure 110 mm[Hg] 110 mm[Hg] [facility] Body weight 3412 [oz_av] 3412 [oz_av] PATRICIA ([facility]) Diastolic blood pressure 86 mm[Hg] 86 mm[Hg] PATRICIA ([facility]) Body height 72 [in_i] 72 [in_i] PATRICIA ([facility]) Body mass index (BMI) [Ratio] 28.1 kg/m2 28.1 k g/m2 PATRICIA ([facility]) Systolic blood pressure 125 mm[Hg] 125 mm[Hg] A [facility] ([facility]) Body weight 3318 [oz_av] 3318 [oz_av] PATRICIA ([facility]) Diastolic blood pressure 86 mm[Hg] 86 mm[Hg] PATRICIA ([facility]) Body height 72 [in_i] 72 [in_i] PATRICIA ([facility]) Body mass index (BMI) [Ratio] 28.1 kg/m2 28.1 k g/m2 PATRICIA ([facility]) Systolic blood pressure 125 mm[Hg] 125 mm[Hg] [facility] Body weight 3318 [oz_av] 3318 [oz_av] PATRICIA ([facility]) Diastolic blood pressure 86 mm[Hg] 86 mm[Hg] PATRICIA ([facility]) Body height 72 [in_i] 72 [in_i] PATRICIA ([facility]) Body mass index (BMI) [Ratio] 28.1 kg/m2 28.1 k g/m2 PATRICIA ([facility]) Systolic blood pressure 125 mm[Hg] 125 mm[Hg] A [facility] ([facility]) Body weight 3318 [oz_av] 3318 [oz_av] PATRICIA ([facility]) Diastolic blood pressure 86 mm[Hg] 86 mm[Hg] PATRICIA ([facility]) Body height 72 [in_i] 72 [in_i] PATRICIA ([facility]) Body mass index (BMI) [Ratio] 28.1 kg/m2 28.1 k g/m2 PATRICIA ([facility]) Systolic blood pressure 125 mm[Hg] 125 mm[Hg] [facility] Body weight 3318 [oz_av] 3318 [oz_av] PATRICIA ([facility]) Diastolic blood pressure 86 mm[Hg] 86 mm[Hg] PATRICIA ([facility]) Body height 72 [in_i] 72 [in_i] PATRICIA ([facility]) Body mass index (BMI) [Ratio] 28.1 kg/m2 28.1 k g/m2 PATRICIA ([facility]) Systolic blood pressure 125 mm[Hg] 125 mm[Hg] A [facility] ([facility]) Body weight 3318 [oz_av] 3318 [oz_av] PATRICIA ([facility]) Diastolic blood pressure 86 mm[Hg] 86 mm[Hg] PATRICIA ([facility]) Body height 72 [in_i] 72 [in_i] PATRICIA ([facility]) Body mass index (BMI) [Ratio] 28.1 kg/m2 28.1 k g/m2 PATRICIA ([facility]) Systolic blood pressure 125 mm[Hg] 125 mm[Hg] [facility] Body weight 3318 [oz_av] 3318 [oz_av] PATRICIA ([facility]) Diastolic blood pressure 86 mm[Hg] 86 mm[Hg] PATRICIA ([facility]) Body height 72 [in_i] 72 [in_i] PATRICIA ([facility]) Body mass index (BMI) [Ratio] 28.1 kg/m2 28.1 k g/m2 PATRICIA ([facility]) Systolic blood pressure 125 mm[Hg] 125 mm[Hg] A [facility] ([facility]) Body weight 3318 [oz_av] 3318 [oz_av] PATRICIA ([facility]) Diastolic blood pressure 86 mm[Hg] 86 mm[Hg] PATRICIA ([facility]) Body height 72 [in_i] 72 [in_i] PATRICIA ([facility]) Body mass index (BMI) [Ratio] 28.1 kg/m2 28.1 k g/m2 PATRICIA ([facility]) Systolic blood pressure 125 mm[Hg] 125 mm[Hg] A LEID[facility] ([facility]) Body weight 3318 [oz_av] 3318 [oz_av] PATRICIA ([facility]) Body height 72 [in_i] 72 [in_i] PATRICIA ([facility]) Body height 72 [in_i] 72 [in_i] PATRICIA ([facility]) Body height 72 [in_i] 72 [in_i] PATRICIA ([facility]) Body height 72 [in_i] 72 [in_i] PATRICIA ([facility]) Body height 72 [in_i] 72 [in_i] PATRICIA ([facility]) Body height 72 [in_i] 72 [in_i] PATRICIA ([facility]) Diastolic blood pressure 84 mm[Hg] 84 mm[Hg] PATRICIA ([facility]) Body height 72 [in_i] 72 [in_i] PATRICIA ([facility]) Body mass index (BMI) [Ratio] 28.4 kg/m2 28.4 k g/m2 PATRICIA ([facility]) Systolic blood pressure 128 mm[Hg] 128 mm[Hg] A THENA ([facility]) Body weight 3350.4 [oz_av] 3350.4 [oz_av] ATHEN A ([facility]) Diastolic blood pressure 84 mm[Hg] 84 mm[Hg] PATRICIA ([facility]) Body height 72 [in_i] 72 [in_i] PATRICIA ([facility]) Body mass index (BMI) [Ratio] 28.4 kg/m2 28.4 k g/m2 PATRICIA ([facility]) Systolic blood pressure 128 mm[Hg] 128 mm[Hg] A THENA ([facility]) Body weight 3350.4 [oz_av] 3350.4 [oz_av] ATHEN A ([facility]) Diastolic blood pressure 84 mm[Hg] 84 mm[Hg] PATRICIA ([facility]) Body height 72 [in_i] 72 [in_i] PATRICIA ([facility]) Body mass index (BMI) [Ratio] 28.4 kg/m2 28.4 k g/m2 PATRICIA ([facility]) Systolic blood pressure 128 mm[Hg] 128 mm[Hg] [facility] Body weight 3350.4 [oz_av] 3350.4 [oz_av] ATHEN A ([facility]) Diastolic blood pressure 84 mm[Hg] 84 mm[Hg] PATRICIA ([facility]) Body height 72 [in_i] 72 [in_i] PATRICIA ([facility]) Body mass index (BMI) [Ratio] 28.4 kg/m2 28.4 k g/m2 PATRICIA ([facility]) Systolic blood pressure 128 mm[Hg] 128 mm[Hg] [facility] Body weight 3350.4 [oz_av] 3350.4 [oz_av] ATHEN A ([facility]) Diastolic blood pressure 84 mm[Hg] 84 mm[Hg] PATRICIA ([facility]) Body height 72 [in_i] 72 [in_i] PATRICIA ([facility]) Body mass index (BMI) [Ratio] 28.4 kg/m2 28.4 k g/m2 PATRICIA ([facility]) Systolic blood pressure 128 mm[Hg] 128 mm[Hg] A THENA ([facility]) Body weight 3350.4 [oz_av] 3350.4 [oz_av] ATHEN A ([facility]) Diastolic blood pressure 84 mm[Hg] 84 mm[Hg] PATRICIA ([facility]) Body height 72 [in_i] 72 [in_i] PATRICIA ([facility]) Body mass index (BMI) [Ratio] 28.4 kg/m2 28.4 k g/m2 PATRICIA ([facility]) Systolic blood pressure 128 mm[Hg] 128 mm[Hg] [facility] Body weight 3350.4 [oz_av] 3350.4 [oz_av] ATHEN A ([facility]) Diastolic blood pressure 84 mm[Hg] 84 mm[Hg] PATRICIA ([facility]) Body height 72 [in_i] 72 [in_i] PATRICIA ([facility]) Body mass index (BMI) [Ratio] 28.4 kg/m2 28.4 k g/m2 PATRICIA ([facility]) Systolic blood pressure 128 mm[Hg] 128 mm[Hg] [facility] Body weight 3350.4 [oz_av] 3350.4 [oz_av] ATHEN A ([facility]) Diastolic blood pressure 84 mm[Hg] 84 mm[Hg] PATRICIA ([facility]) Body height 72 [in_i] 72 [in_i] PATRICIA ([facility]) Body mass index (BMI) [Ratio] 28.4 kg/m2 28.4 k g/m2 PATRICIA ([facility]) Systolic blood pressure 128 mm[Hg] 128 mm[Hg] [facility] Body weight 3350.4 [oz_av] 3350.4 [oz_av] ATHEN A ([facility]) Diastolic blood pressure 84 mm[Hg] 84 mm[Hg] PATRICIA ([facility]) Body height 72 [in_i] 72 [in_i] PATRICIA ([facility]) Body mass index (BMI) [Ratio] 28.4 kg/m2 28.4 k g/m2 PATRICIA ([facility]) Systolic blood pressure 128 mm[Hg] 128 mm[Hg] A THENA ([facility]) Body weight 3350.4 [oz_av] 3350.4 [oz_av] ATHEN A ([facility]) Diastolic blood pressure 84 mm[Hg] 84 mm[Hg] PATRICIA ([facility]) Body height 72 [in_i] 72 [in_i] PATRICIA ([facility]) Body mass index (BMI) [Ratio] 28.4 kg/m2 28.4 k g/m2 PATRICIA ([facility]) Systolic blood pressure 128 mm[Hg] 128 mm[Hg] [facility] Body weight 3350.4 [oz_av] 3350.4 [oz_av] ATHEN A ([facility]) Diastolic blood pressure 84 mm[Hg] 84 mm[Hg] PATRICIA ([facility]) Body height 72 [in_i] 72 [in_i] PATRICIA ([facility]) Body mass index (BMI) [Ratio] 27.4 kg/m2 27.4 k g/m2 PATRICIA ([facility]) Systolic blood pressure 133 mm[Hg] 133 mm[Hg] A THENA ([facility]) Body weight 3238 [oz_av] 3238 [oz_av] PATRICIA ([facility]) Diastolic blood pressure 84 mm[Hg] 84 mm[Hg] PATRICIA ([facility]) Body height 72 [in_i] 72 [in_i] PATRICIA ([facility]) Body mass index (BMI) [Ratio] 27.4 kg/m2 27.4 k g/m2 PATRICIA ([facility]) Systolic blood pressure 133 mm[Hg] 133 mm[Hg] A THENA ([facility]) Body weight 3238 [oz_av] 3238 [oz_av] PATRICIA ([facility]) Diastolic blood pressure 84 mm[Hg] 84 mm[Hg] PATRICIA ([facility]) Body height 72 [in_i] 72 [in_i] PATRICIA ([facility]) Body mass index (BMI) [Ratio] 27.4 kg/m2 27.4 k g/m2 PATRICIA ([facility]) Systolic blood pressure 133 mm[Hg] 133 mm[Hg] A THENA ([facility]) Body weight 3238 [oz_av] 3238 [oz_av] PATRICIA ([facility]) Diastolic blood pressure 84 mm[Hg] 84 mm[Hg] PATRICIA ([facility]) Body height 72 [in_i] 72 [in_i] PATRICIA ([facility]) Body mass index (BMI) [Ratio] 27.4 kg/m2 27.4 k g/m2 PATRICIA ([facility]) Systolic blood pressure 133 mm[Hg] 133 mm[Hg] [facility] Body weight 3238 [oz_av] 3238 [oz_av] PATRICIA ([facility]) Diastolic blood pressure 84 mm[Hg] 84 mm[Hg] PATRICIA ([facility]) Body height 72 [in_i] 72 [in_i] PATRICIA ([facility]) Body mass index (BMI) [Ratio] 27.4 kg/m2 27.4 k g/m2 PATRICIA ([facility]) Systolic blood pressure 133 mm[Hg] 133 mm[Hg] [facility] Body weight 3238 [oz_av] 3238 [oz_av] PATRICIA ([facility]) Diastolic blood pressure 84 mm[Hg] 84 mm[Hg] PATRICIA ([facility]) Body height 72 [in_i] 72 [in_i] PATRICIA ([facility]) Body mass index (BMI) [Ratio] 27.4 kg/m2 27.4 k g/m2 PATRICIA ([facility]) Systolic blood pressure 133 mm[Hg] 133 mm[Hg] [facility] Body weight 3238 [oz_av] 3238 [oz_av] PATRICIA ([facility]) Systolic blood pressure 133 mm[Hg] 133 mm[Hg] [facility] Body weight 3238 [oz_av] 3238 [oz_av] PATRICIA ([facility]) Diastolic blood pressure 84 mm[Hg] 84 mm[Hg] PATRICIA ([facility]) Body height 72 [in_i] 72 [in_i] PATRICIA ([facility]) Body mass index (BMI) [Ratio] 27.4 kg/m2 27.4 k g/m2 PATRICIA ([facility]) Diastolic blood pressure 84 mm[Hg] 84 mm[Hg] PATRICIA ([facility]) Body height 72 [in_i] 72 [in_i] PATRICIA ([facility]) Body mass index (BMI) [Ratio] 27.4 kg/m2 27.4 k g/m2 PATRICIA ([facility]) Systolic blood pressure 133 mm[Hg] 133 mm[Hg] A THENA ([facility]) Body weight 3238 [oz_av] 3238 [oz_av] PATRICIA ([facility]) Diastolic blood pressure 84 mm[Hg] 84 mm[Hg] PATRICIA ([facility]) Body height 72 [in_i] 72 [in_i] PATRICIA ([facility]) Body mass index (BMI) [Ratio] 27.4 kg/m2 27.4 k g/m2 PATRICIA ([facility]) Systolic blood pressure 133 mm[Hg] 133 mm[Hg] A THENA ([facility]) Body weight 3238 [oz_av] 3238 [oz_av] PATRICIA ([facility]) Diastolic blood pressure 84 mm[Hg] 84 mm[Hg] PATRICIA ([facility]) Body height 72 [in_i] 72 [in_i] PATRICIA ([facility]) Body mass index (BMI) [Ratio] 27.4 kg/m2 27.4 k g/m2 PATRICIA ([facility]) Systolic blood pressure 133 mm[Hg] 133 mm[Hg] A THENA ([facility]) Body weight 3238 [oz_av] 3238 [oz_av] PATRICIA ([facility]) Diastolic blood pressure 84 mm[Hg] 84 mm[Hg] PATRICIA ([facility]) Body height 72 [in_i] 72 [in_i] PATRICIA ([facility]) Body mass index (BMI) [Ratio] 27.4 kg/m2 27.4 k g/m2 PATRICIA ([facility]) Systolic blood pressure 133 mm[Hg] 133 mm[Hg] A THENA ([facility]) Body weight 3238 [oz_av] 3238 [oz_av] PATRICIA ([facility]) ID Date Data Source [id number] 05/15/2020 03:13:57 PM [facility] Name Value Range Interpretation Code Description Data Source(s) PREFERRED NAME [facility] PREFERRED NAME [facility] Patient Treatment Plan of Care Planned Activity Planned Date Details Description Data Source (s) PARoxetine HCl 30 MG Oral Tablet (PAXIL) 04/23/2020 12:00:00 AM [facility] cetirizine hydrochloride 10 MG Oral Tablet 04/23/2020 12:00:00 AM [facility] Spironolactone 100 MG Oral Tablet 04/12/2020 12:00:00 AM [facility] Estradiol 2 MG Oral Tablet 03/10/2020 12:00:00 AM [facility] Spironolactone 50 MG Oral Tablet PATRICIA ([facility]) paroxetine 30 mg tablet TAKE ONE TABLET BY MOUTH EVERY DAY PATRICIA ([facility]) paroxetine 20 mg tablet TAKE ONE TABLET BY MOUTH ONCE A DAY PATRICIA ([facility]) paroxetine 10 mg tablet TAKE ONE TABLET BY MOUTH EVERY DAY PATRICIA ([facility]) Spironolactone 50 MG Oral Tablet PATRICIA ([facility]) paroxetine 30 mg tablet TAKE ONE TABLET BY MOUTH EVERY DAY PATRICIA ([facility]) paroxetine 20 mg tablet TAKE ONE TABLET BY MOUTH ONCE A DAY PATRICIA ([facility]) paroxetine 10 mg tablet TAKE ONE TABLET BY MOUTH EVERY DAY PATRICIA ([facility]) Spironolactone 50 MG Oral Tablet PATRICIA ([facility]) paroxetine 30 mg tablet TAKE ONE TABLET BY MOUTH EVERY DAY PATRICIA ([facility]) paroxetine 20 mg tablet TAKE ONE TABLET BY MOUTH ONCE A DAY PATRICIA ([facility]) paroxetine 10 mg tablet TAKE ONE TABLET BY MOUTH EVERY DAY PATRICIA ([facility]) Spironolactone 50 MG Oral Tablet PATRICIA ([facility]) paroxetine 30 mg tablet TAKE ONE TABLET BY MOUTH EVERY DAY PATRICIA ([facility]) Spironolactone 50 MG Oral Tablet PATRICIA ([facility]) paroxetine 20 mg tablet ATHE NA ([facility]) Spironolactone 50 MG Oral Tablet PATRICIA ([facility]) paroxetine 20 mg tablet ATHE NA ([facility]) Spironolactone 50 MG Oral Tablet PATRICIA ([facility]) paroxetine 20 mg tablet ATHE NA ([facility]) Spironolactone 50 MG Oral Tablet PATRICIA ([facility]) paroxetine 20 mg tablet ATHE NA ([facility]) Spironolactone 50 MG Oral Tablet PATRICIA ([facility]) paroxetine 20 mg tablet ATHE NA ([facility]) Spironolactone 50 MG Oral Tablet PATRICIA ([facility] paroxetine 20 mg tablet ATHChad NA ([facility])
[2021-01-21] MEDS ORDERED: LIDOCAINE 2% 100MG/5ML SDV (FOR ANES.) As Ordered ONE (11:31)
[2021-01-21] MEDS ORDERED: propofoL 200 MG/20 ML VIAL As Ordered ONE ×2 (11:31→13:34)
[2021-01-21] MEDS ORDERED: NS 1,000 ML IV ONE (11:50)
--- NOTE | 2021-01-21 13:55 | ROOR ---
Patient Name: Rafael Toussaint Procedure Date: 01/21/2021 1:10 PM Date of : 1995 Age: 25 Room: [facility] Gender: Male Note Status: Finalized Procedure: Colonoscopy Indications: Hematochezia Providers: Farhan Price MD Referring MD: Segun BRADFORD MD Requesting Provider: Medicines: Monitored Anesthesia Care Complications: No immediate complications. Procedure: Pre-Anesthesia Assessment: - The heart rate, respiratory rate, oxygen saturations, blood pressure, adequacy of pulmonary ventilation, and response to care were monitored throughout the procedure. The Colonoscope was introduced through the anus and advanced to the cecum, identified by appendiceal orifice and ileocecal valve. The colonoscopy was performed with difficulty due to poor bowel prep with stool present. Successful completion of the procedure was aided by lavage. The patient tolerated the procedure well. The quality of the bowel preparation was poor. Findings: The perianal and digital rectal examinations were normal. Two sessile polyps were found in the ascending colon. The polyps were 4 to 5 mm in size. These polyps were removed with a cold snare. Resection and retrieval were complete. Small Internal Hemorrhoids. The colon is otherwise without large tumors or obstructing lesions. Unable to perform adequate detail examination. Small lesions may have been missed. Impression: - Preparation of the colon was poor. - Two 4 to 5 mm polyps in the ascending colon, removed with a cold snare. Resected and retrieved. - Small Internal Hemorrhoids - The colon is otherwise without large tumors or obstructing lesions. Unable to perform adequate detail examination. Small lesions may have been missed. Recommendation: - Repeat colonoscopy in next 6 months because the bowel preparation was poor. - My office will call you within the next few days to reschedule a colonoscopy with alternate colon preparation. Procedure Code(s): --- Professional --- 65758, Colonoscopy, flexible; with removal of tumor(s), polyp(s), or other lesion(s) by snare technique Diagnosis Code(s): --- Professional --- K92.1, Melena (includes Hematochezia) K63.5, Polyp of colon CPT copyright 2019 [employer]. All rights reserved. The codes documented in this report are preliminary and upon bag adjuster review may be revised to meet current compliance requirements. Farhan Price MD Farhan Price MD 01/21/2021 1:55:01 PM Electronically signed by Farhan Price MD Number of Addenda: 0 Note Initiated On: 01/21/2021 1:10 PM Estimated Blood Loss: Estimated blood loss: none.
[2021-01-21 14:20] VITALS: BP 125/86
== END 2021-01-21 14:46 | disposition home or self-care (01) ==
LOC: M OPP 11:01 → EDSEX 11:01 → M OPP 14:46
PROVIDERS: ATTEND Internal Medicine Gastroenterology
DX: D12.2 Benign neoplasm of ascending colon (principal); K64.8 Other hemorrhoids; K92.1 Melena; Z79.818 Long term (current) use of other agents affecting estrogen receptors and estrogen levels; Z79.899 Other long term (current) drug therapy; Z88.1 Allergy status to other antibiotic agents; Z91.018 Allergy to other foods

== ENCOUNTER 2021-05-18 11:39 | Emergency (ER) | payer MEDICARE, MEDICAID ==
[~2021-05-18] VITALS: Ht 182.9 cm; Wt 97.9 kg
[2021-05-18] MEDS ORDERED: AUGMENTIN 875 MG TAB PO ONE (13:25)
[2021-05-18] MEDS ORDERED: ACETAMINOPHEN 500 MG TAB PO ONE (13:25)
[2021-05-18] MEDS ORDERED: AMOX875T2 PO (13:29)
[2021-05-18] MEDS ORDERED: IBUPROFEN 600MG TAB PO ONE (13:35)
[2021-05-18 13:45] VITALS: BP 129/69
== END 2021-05-18 13:45 | disposition home or self-care (01) ==
LOC: M ED 11:39 → EDSEX 11:39 → M ED 13:45
DX: K04.7 Periapical abscess without sinus (principal); K05.6 Periodontal disease, unspecified; F10.10 Alcohol abuse, uncomplicated; Z91.018 Allergy to other foods; Z79.899 Other long term (current) drug therapy

== ENCOUNTER → 2021-11-07 | Outpatient (CLI) | payer MEDICARE, MEDICAID ==
[~2021-11-07] MED LIST changes: +AMOX875T2 PO; +CETI-24 PO; +ESTR2TAB3 PO; +SPIR100T3 PO
== END ==
LOC: M LABSMTC 09:13
PROVIDERS: ATTEND Anesthesiology
DX: Z01.818 Encounter for other preprocedural examination (principal); Z11.52 Encounter for screening for COVID-19

== ENCOUNTER 2021-11-12 06:40 | Day surgery (SDC) | payer MEDICARE, MEDICAID ==
[~2021-11-12] VITALS: Ht 182.9 cm; Wt 97.1 kg
[~2021-11-12 06:40] MED LIST changes: +NS 1,000 ML IV ONE
[2021-11-12] MEDS ORDERED: propofoL 200 MG/20 ML VIAL As Ordered ONE ×2 (07:10→08:34)
[2021-11-12] MEDS ORDERED: LIDOCAINE 2% 100MG/5ML SDV (FOR ANES.) As Ordered ONE (07:10)
[2021-11-12 09:06] VITALS: BP 115/67
== END 2021-11-12 13:10 | disposition home or self-care (01) ==
LOC: M OPP 06:40
PROVIDERS: ATTEND Internal Medicine Gastroenterology
DX: Z86.010 Personal history of colon polyps (principal); K64.8 Other hemorrhoids; F41.9 Anxiety disorder, unspecified; F84.0 Autistic disorder; F32.A Depression, unspecified; Z88.8 Allergy status to other drugs, medicaments and biological substances; Z91.018 Allergy to other foods; Z79.899 Other long term (current) drug therapy

== ENCOUNTER → 2022-03-04 | Outpatient (REF) | payer MEDICARE, MEDICAID ==
[~2022-03-04] MED LIST changes: -NS 1,000 ML IV ONE
[2022-03-04 19:02] LABS: BASO # 0.1 10^3/uL (0.0-0.2); EOS # 0.2 10^3/uL (0.0-0.5); EOS % 2.8 % (0.0-3.0); HEMATOCRIT 46.5 % (42.0-52.0); HEMOGLOBIN 15.9 g/dl (13.5-17.5); LYMPH # 2.8 10^3/uL (1.5-5.0); LYMPH % 34.6 % (24.0-44.0); MEAN CORPUSCULAR HEMOGLOBIN 30.9 pg (27.0-33.0); MEAN CORPUSCULAR HGB CONC 34.2 g/dl (32.0-36.5); MEAN CORPUSCULAR VOLUME 90.5 fl (80.0-96.0); MONO # 0.6 10^3/uL (0.0-0.8); MONO % 7.6 % (2.0-8.0); NEUTROPHILS # 4.3 10^3/uL (1.5-8.5); NEUTROPHILS % 53.7 % (36.0-66.0); PLATELET COUNT, AUTOMATED 305 10^3/uL (150-450); RED BLOOD COUNT 5.14 10^6/uL (4.30-6.10); WHITE BLOOD COUNT 7.9 10^3/uL (4.0-10.0)
[2022-03-04 19:34] LABS: CHLORIDE LEVEL 105 MMOL/L (98-107); POTASSIUM SERUM 4.2 MMOL/L (3.5-5.1); SODIUM LEVEL 140 MMOL/L (136-145)
[2022-03-04 19:35] LABS: CARBON DIOXIDE LEVEL 26 MMOL/L (20-31)
[2022-03-04 19:38] LABS: ESTRADIOL 41.5 PG/ML (<39.8); TESTOSTERONE 427 NG/DL (241-827)
[2022-03-04 19:39] LABS: ALKALINE PHOSPHATASE 74 U/L (46-116)
[2022-03-04 19:40] LABS: BLOOD UREA NITROGEN 14 MG/DL (9-23); CALCIUM LEVEL 9.4 MG/DL (8.5-10.1); GLUCOSE, FASTING 81 MG/DL (60-100)
[2022-03-04 19:42] LABS: ALT/SGPT 27 U/L (7.0-40); AST/SGOT 21 U/L (<34); BILIRUBIN,TOTAL 0.4 MG/DL (0.3-1.2); GLOMERULAR FILTRATION RATE > 60.0 (>60); TOTAL PROTEIN 6.7 G/DL (5.7-8.2)
== END ==
LOC: M LAB REF 17:05
PROVIDERS: ATTEND Family Medicine Addiction Medicine
DX: F64.0 Transsexualism (principal)

== ENCOUNTER 2022-04-04 10:33 | Emergency (ER) | payer MEDICARE, MEDICAID ==
[~2022-04-04] VITALS: Ht 182.9 cm; Wt 100.0 kg
[2022-04-04] MEDS ORDERED: BENZONATATE 100MG CAPSULE PO ONE (15:25)
[2022-04-04] MEDS ORDERED: ACETAMINOPHEN 500 MG TAB PO ONE (15:25)
[2022-04-04] MEDS ORDERED: BENZ200C70 PO (15:45)
[2022-04-04] MEDS ORDERED: BENZ1LOZ9 PO (15:45)
[2022-04-04] MEDS ORDERED: OSEL75CA PO (15:45)
[2022-04-04] MEDS ORDERED: ALBU6.7H6 INH (15:49)
[2022-04-04 16:00] VITALS: BP 140/83
[2022-04-04] MEDS ORDERED: ACETAMINOPHEN 325MG/10.15ML UDC PO ONE (16:05)
== END 2022-04-04 16:32 | disposition home or self-care (01) ==
LOC: EDBD 10:33 → EDSEX 10:33 → M ED 15:31
DX: J09.X2 Influenza due to identified novel influenza A virus with other respiratory manifestations (principal); J45.909 Unspecified asthma, uncomplicated; F41.9 Anxiety disorder, unspecified; F32.A Depression, unspecified; F12.10 Cannabis abuse, uncomplicated; F10.10 Alcohol abuse, uncomplicated; Z91.018 Allergy to other foods; Z79.51 Long term (current) use of inhaled steroids; Z79.899 Other long term (current) drug therapy

== ENCOUNTER → 2024-03-24 | Outpatient (REF) | payer MEDICARE, MEDICAID ==
[~2024-03-24] MED LIST changes: +ALBU6.7H6 INH; +BENZ1LOZ9 PO; +BENZ200C70 PO; +OSEL75CA PO
[2024-03-24 14:16] LABS: THYROID STIMULATING HORMONE 2.672 uIU/ML (0.55-4.78)
[2024-03-24 14:17] LABS: TESTOSTERONE 162 NG/DL (241-827)
[2024-03-24 14:26] LABS: ALKALINE PHOSPHATASE 56 U/L (40-129); ALT/SGPT 43 U/L (7.0-40); AST/SGOT 27 U/L (<34); BILIRUBIN,TOTAL 1.1 MG/DL (0.3-1.2); BLOOD UREA NITROGEN 18 MG/DL (9-23); CALCIUM LEVEL 9.6 MG/DL (8.5-10.1); CARBON DIOXIDE LEVEL 24 MMOL/L (20-31); CHLORIDE LEVEL 107 MMOL/L (98-107); CHOLESTEROL LEVEL 105 MG/DL (<200); CHOLESTEROL RISK RATIO 2.48 (<5); CREATININE FOR GFR 0.84 MG/DL (0.70-1.30); GLOMERULAR FILTRATION RATE > 60.0 (>60); GLUCOSE, FASTING 84 MG/DL (60-100); HDL CHOLESTEROL 42.2 MG/DL (>40); NON-HDL-C 62.8 MG/DL; POTASSIUM SERUM 4.1 MMOL/L (3.5-5.1); SODIUM LEVEL 140 MMOL/L (136-145); TOTAL PROTEIN 6.8 G/DL (5.7-8.2); TRIGLYCERIDES LEVEL 104 MG/DL (<150)
== END ==
LOC: M LAB REF 12:49
PROVIDERS: ATTEND Family Medicine Addiction Medicine
DX: F64.9 Gender identity disorder, unspecified (principal); E78.5 Hyperlipidemia, unspecified